=== PATIENT | female | born 1975 | race Caucasian/White ===

== ENCOUNTER 2022-10-15 02:48 | Inpatient (IN) | payer OTHER ==
[2022-10-15] MEDS: ALBUTEROL SO4 2.5/IPRATROPIUM 0.5 INH SOL 3 ML VIAL.NEB. NEB SCH ×2 (03:45→04:02)
[2022-10-15 03:53] LABS: BASO % 0.2 % (0-2.0); EOS % 1.3 % (0-4.5); HEMATOCRIT 22.7 % (32.4-45.2); HEMOGLOBIN 7.8 GM/dL (10.7-15.3); LYMPH % 8.4 % (8-40); MCH 29.9 pg (25.7-33.7); MCHC 34.5 g/dl (32.0-36.0); MEAN CELL VOLUME 86.7 fl (80-96); MEAN PLT VOLUME 7.1 fl (7.5-11.1); MONO % 5.6 % (3.8-10.2); NEUT % 84.5 % (42.8-82.8); PLATELET COUNT 257 10^3/uL (134-434); RBC 2.62 M/mm3 (3.60-5.2); RDW 15.3 % (11.6-15.6); WHITE BLOOD COUNT 9.5 K/mm3 (4.0-10.0)
[2022-10-15 03:59] VITALS: BMI 36.6
[2022-10-15 04:01] LABS: INR 0.97 (0.83-1.09); PROTHROMBIN TIME (PATIENT) 11.1 SEC (9.7-13.0)
[2022-10-15 04:16] LABS: BLOOD UREA NITROGEN 26.1 mg/dL (7-18); CALCIUM 9.2 mg/dL (8.5-10.1)
[2022-10-15 04:17] LABS: ALBUMIN 2.1 g/dl (3.4-5.0)
[2022-10-15 04:20] LABS: CREATININE 2.8 mg/dL (0.55-1.3)
[2022-10-15 04:21] LABS: BILIRUBIN,TOTAL 0.2 mg/dL (0.2-1); TOT PROT 6.1 g/dl (6.4-8.2)
[2022-10-15] MEDS ORDERED: CEFTRIAXONE 1,000 MG in DEXTROSE 5%-WATER - 50 ML IVPB ONE (05:28)
[2022-10-15] MEDS ORDERED: AZITHROMYCIN IVPB 500 MG in DEXTROSE 5%-WATER - 250 ML IVPB ONE (05:29)
[2022-10-15] MEDS ORDERED: CEFTRIAXONE 1 GM/50 ML BAG ONE (05:34)
[2022-10-15] MEDS ORDERED: AZITHROMYCIN IVPB 500 MG/250 ML BAG IVPB ONE (05:36)
[2022-10-15] MEDS ORDERED: ACETAMINOPHEN 1000 MG/100 ML BAG IVPB ONE (06:10)
[2022-10-15] MEDS ORDERED: ACETAMINOPHEN INJECTION 100 ML IVPB ONE (06:24)
[2022-10-15] MEDS ORDERED: ENOXAPARIN NA (PORCINE) 40 MG/0.4 ML DISP.SYRIN SQ ONE (07:18)
[2022-10-15] MEDS ORDERED: ENOXAPARIN NA (PORCINE) 100 MG/1 ML DISP.SYRIN SQ ONE (07:35)
[2022-10-15] MEDS ORDERED: ENOXAPARIN NA (PORCINE) 80 MG/0.8 ML DISP.SYRIN SQ ONE ×2 (07:36→07:45)
[2022-10-15] MEDS ORDERED: ALBUTEROL SO4 2.5/IPRATROPIUM 0.5 INH SOL 3 ML VIAL.NEB. NEB PRN (09:47)
[2022-10-15] MEDS ORDERED: ACETYLCYSTEINE 20% 200MG/ML 4 ML VIAL *FOR ORAL / INH USE ONLY NEB ONE (10:12)
[2022-10-15] MEDS ORDERED: ALBUTEROL SO4 0.083% IH SOL 2.5 MG/3 ML VIAL.NEB. NEB PRN (10:15)
[2022-10-15] MEDS ORDERED: LABETALOL HCL 100 MG TABLET (FP) ONE (10:54)
[2022-10-15] MEDS ORDERED: ASPIRIN 81 MG CHEWABLE TABLETS ONE (10:55)
[2022-10-15] MEDS ORDERED: amLODIPine BESYLATE 10 MG TABLET (FP) ONE (10:55)
[2022-10-15] MEDS: INSULIN SLIDING SCALE (NOVOLOG) 1 VIAL SQ SCH ×3 (10:56→21:03)
[2022-10-15] MEDS: amLODIPine BESYLATE 10 MG TABLET (FP) PEG SCH (13:04)
[2022-10-15] MEDS: ASPIRIN 81 MG CHEWABLE TABLETS PEG SCH (13:04)
[2022-10-15] MEDS: LABETALOL HCL 100 MG TABLET (FP) PEG SCH ×2 (13:04→21:00)
[2022-10-15] MEDS: FLUoxetine HCL 20 MG/5 ML 120 BOTTLE PEG SCH (13:04)
[2022-10-15] MEDS: cloNIDine-TTS 0.3 MG /24 HRS PATCH.TDWK TD SCH (13:04)
[2022-10-15] MEDS ORDERED: ACETYLCYSTEINE 20% 200MG/ML 4 ML VIAL *FOR ORAL / INH USE ONLY ONE (13:57)
[2022-10-15] MEDS ORDERED: ALBUTEROL SO4 0.083% IH SOL 2.5 MG/3 ML VIAL.NEB. NEB ONE (13:58)
[2022-10-15] MEDS ORDERED: ACETAMINOPHEN 325 MG TABLET (FP) PO ONE (20:12)
[2022-10-15] MEDS: HEPARIN NA (PORCINE) 5,000 UNITS/ML 1ML VIAL SQ SCH (21:00)
[2022-10-15] MEDS: ATORVASTATIN CA 80 MG TABLET (FP) PEG SCH (21:00)
[2022-10-16] MEDS ORDERED: MELATONIN 5 MG TABLETS PO PRN (00:20)
[2022-10-16] MEDS: HEPARIN NA (PORCINE) 5,000 UNITS/ML 1ML VIAL SQ SCH ×3 (06:15→21:05)
[2022-10-16] MEDS: INSULIN SLIDING SCALE (NOVOLOG) 1 VIAL SQ SCH ×4 (07:03→22:44)
[2022-10-16 07:44] LABS: BASO % 0.6 % (0-2.0); HEMATOCRIT 21.4 % (32.4-45.2); HEMOGLOBIN 7.3 GM/dL (10.7-15.3); LYMPH % 18.1 % (8-40); MCH 29.3 pg (25.7-33.7); MCHC 34.3 g/dl (32.0-36.0); MEAN CELL VOLUME 85.4 fl (80-96); MEAN PLT VOLUME 7.1 fl (7.5-11.1); MONO % 9.9 % (3.8-10.2); NEUT % 68.4 % (42.8-82.8); PLATELET COUNT 269 10^3/uL (134-434); RDW 15.5 % (11.6-15.6); WHITE BLOOD COUNT 5.3 K/mm3 (4.0-10.0)
[2022-10-16] MEDS: amLODIPine BESYLATE 10 MG TABLET (FP) PEG SCH (10:17)
[2022-10-16] MEDS: LABETALOL HCL 100 MG TABLET (FP) PEG SCH ×2 (10:17→21:05)
[2022-10-16] MEDS: ASPIRIN 81 MG CHEWABLE TABLETS PEG SCH (10:17)
[2022-10-16 12:20] LABS: INR 0.93 (0.83-1.09); PROTHROMBIN TIME (PATIENT) 10.7 SEC (9.7-13.0)
[2022-10-16 12:23] LABS: ACTIVATED PTT 31.6 SECONDS (25.2-36.5)
[2022-10-16 12:51] LABS: BILIRUBIN,TOTAL 1.5 mg/dL (0.2-1); PHOSPHOROUS 4.4 mg/dL (2.5-4.9)
[2022-10-16 12:53] LABS: ALBUMIN 2.1 g/dl (3.4-5.0)
[2022-10-16 12:55] LABS: CALCIUM 10.4 mg/dL (8.5-10.1)
[2022-10-16 12:56] LABS: MAGNESIUM 2.8 mg/dL (1.8-2.4)
[2022-10-16 12:57] LABS: BLOOD UREA NITROGEN 35.3 mg/dL (7-18)
[2022-10-16] MEDS ORDERED: SODIUM CHLORIDE 250 ML IV PRN (12:58)
[2022-10-16] MEDS ORDERED: EPOETIN ALFA-EPBX 10,000 UNIT/ML VIAL IVPUSH ONE (14:00)
[2022-10-16] MEDS ORDERED: MAGNESIUM HYDROX 2400MG/30ML ORAL SUSPENSION 30 ML CUP PEG PRN (18:26)
[2022-10-16] MEDS: FLUoxetine HCL 20 MG/5 ML 120 BOTTLE PEG SCH (21:04)
[2022-10-16] MEDS: ACETAMINOPHEN 650 MG/20.3 ML ORAL SOLUTION (CUPS) PEG PRN (21:04)
[2022-10-16] MEDS: MELATONIN 5 MG TABLETS NR SCH (21:05)
[2022-10-16] MEDS: NYSTATIN 100,000 UNIT/GM TOPICAL CREAM 15 GM TUBE TP SCH (21:05)
[2022-10-16] MEDS: ATORVASTATIN CA 80 MG TABLET (FP) PEG SCH (21:05)
[2022-10-16] MEDS: Lacosamide 50 MG/5 ML ORAL SOLUTION UNIT CUPS PEG SCH (21:05)
[2022-10-17] MEDS: INSULIN SLIDING SCALE (NOVOLOG) 1 VIAL SQ SCH ×4 (06:25→22:13)
[2022-10-17] MEDS: HEPARIN NA (PORCINE) 5,000 UNITS/ML 1ML VIAL SQ SCH ×3 (06:25→22:00)
[2022-10-17 07:29] LABS: BASO % 0.4 % (0-2.0); EOS % 1.8 % (0-4.5); HEMATOCRIT 21.5 % (32.4-45.2); HEMOGLOBIN 7.6 GM/dL (10.7-15.3); LYMPH % 12.1 % (8-40); MCH 30.2 pg (25.7-33.7); MCHC 35.3 g/dl (32.0-36.0); MEAN CELL VOLUME 85.6 fl (80-96); MEAN PLT VOLUME 6.6 fl (7.5-11.1); MONO % 10.3 % (3.8-10.2); NEUT % 75.4 % (42.8-82.8); PLATELET COUNT 310 10^3/uL (134-434); RBC 2.52 M/mm3 (3.60-5.2); RDW 15.5 % (11.6-15.6); WHITE BLOOD COUNT 6.8 K/mm3 (4.0-10.0)
[2022-10-17 07:39] LABS: CALCIUM 9.8 mg/dL (8.5-10.1)
[2022-10-17 07:40] LABS: ALBUMIN 2.1 g/dl (3.4-5.0); BLOOD UREA NITROGEN 18.9 mg/dL (7-18); MAGNESIUM 2.1 mg/dL (1.8-2.4)
[2022-10-17 07:43] LABS: BILIRUBIN,TOTAL 0.3 mg/dL (0.2-1); CREATININE 2.5 mg/dL (0.55-1.3); PHOSPHOROUS 3.1 mg/dL (2.5-4.9); TOT PROT 5.7 g/dl (6.4-8.2)
[2022-10-17] MEDS: AMINO ACIDS/PROTEIN HYDROLYS 30 ML LIQUID.PKT PEG SCH (08:29)
[2022-10-17] MEDS: ASPIRIN 81 MG CHEWABLE TABLETS PEG SCH (10:10)
[2022-10-17] MEDS: NYSTATIN 100,000 UNIT/GM TOPICAL CREAM 15 GM TUBE TP SCH ×2 (10:10→22:01)
[2022-10-17] MEDS: LABETALOL HCL 100 MG TABLET (FP) PEG SCH ×2 (10:11→22:02)
[2022-10-17] MEDS: FLUoxetine HCL 20 MG/5 ML 120 BOTTLE PEG SCH (10:11)
[2022-10-17] MEDS: amLODIPine BESYLATE 10 MG TABLET (FP) PEG SCH (10:11)
[2022-10-17] MEDS: VITAMIN B COMP W-C 1 EA TABLET (NEPHRO-VITE) PEG SCH (10:11)
[2022-10-17] MEDS: COLLAGENASE CLOSTRIDIUM HIST. 30 GRAMS TUBE TP SCH (10:12)
[2022-10-17] MEDS: SILVER SULFADIAZINE 1% TOP CREAM 50 GM JAR TP SCH (10:12)
[2022-10-17] MEDS: Lacosamide 50 MG/5 ML ORAL SOLUTION UNIT CUPS PEG SCH ×2 (10:12→22:02)
[2022-10-17] MEDS: ACETAMINOPHEN 650 MG/20.3 ML ORAL SOLUTION (CUPS) PEG PRN (22:00)
[2022-10-17] MEDS: MELATONIN 5 MG TABLETS NR SCH (22:01)
[2022-10-17] MEDS: ATORVASTATIN CA 80 MG TABLET (FP) PEG SCH (22:01)
[2022-10-18] MEDS: HEPARIN NA (PORCINE) 5,000 UNITS/ML 1ML VIAL SQ SCH ×3 (06:24→21:49)
[2022-10-18] MEDS: INSULIN SLIDING SCALE (NOVOLOG) 1 VIAL SQ SCH ×4 (06:28→21:50)
[2022-10-18] MEDS: LABETALOL HCL 100 MG TABLET (FP) PEG SCH ×2 (09:46→21:49)
[2022-10-18] MEDS: Lacosamide 50 MG/5 ML ORAL SOLUTION UNIT CUPS PEG SCH ×2 (09:46→21:49)
[2022-10-18] MEDS: ASPIRIN 81 MG CHEWABLE TABLETS PEG SCH (09:46)
[2022-10-18] MEDS: VITAMIN B COMP W-C 1 EA TABLET (NEPHRO-VITE) PEG SCH (09:46)
[2022-10-18] MEDS: amLODIPine BESYLATE 10 MG TABLET (FP) PEG SCH (09:46)
[2022-10-18] MEDS: AMINO ACIDS/PROTEIN HYDROLYS 30 ML LIQUID.PKT PEG SCH (09:46)
[2022-10-18] MEDS: FLUoxetine HCL 20 MG/5 ML 120 BOTTLE PEG SCH (09:47)
[2022-10-18] MEDS: NYSTATIN 100,000 UNIT/GM TOPICAL CREAM 15 GM TUBE TP SCH ×2 (10:00→21:49)
[2022-10-18] MEDS ORDERED: FUROSEMIDE 40 MG/4 ML INJECTABLE VIAL IVPUSH ONE (11:00)
[2022-10-18 13:42] LABS: BASO % 0.4 % (0-2.0); EOS % 2.7 % (0-4.5); HEMATOCRIT 24.2 % (32.4-45.2); HEMOGLOBIN 8.5 GM/dL (10.7-15.3); LYMPH % 14.6 % (8-40); MCH 30.1 pg (25.7-33.7); MCHC 35.1 g/dl (32.0-36.0); MEAN CELL VOLUME 85.9 fl (80-96); MEAN PLT VOLUME 6.8 fl (7.5-11.1); MONO % 8.5 % (3.8-10.2); NEUT % 73.8 % (42.8-82.8); PLATELET COUNT 340 10^3/uL (134-434); RBC 2.82 M/mm3 (3.60-5.2); RDW 15.5 % (11.6-15.6); WHITE BLOOD COUNT 6.5 K/mm3 (4.0-10.0)
[2022-10-18 14:05] LABS: CALCIUM 10.6 mg/dL (8.5-10.1)
[2022-10-18 14:06] LABS: ALBUMIN 2.2 g/dl (3.4-5.0); BLOOD UREA NITROGEN 32.4 mg/dL (7-18)
[2022-10-18 14:09] LABS: CREATININE 3.8 mg/dL (0.55-1.3)
[2022-10-18 14:10] LABS: BILIRUBIN,TOTAL 0.2 mg/dL (0.2-1)
[2022-10-18] MEDS: COLLAGENASE CLOSTRIDIUM HIST. 30 GRAMS TUBE TP SCH (17:45)
[2022-10-18] MEDS: SILVER SULFADIAZINE 1% TOP CREAM 50 GM JAR TP SCH (17:45)
[2022-10-18] MEDS: MELATONIN 5 MG TABLETS NR SCH (21:49)
[2022-10-18] MEDS: ATORVASTATIN CA 80 MG TABLET (FP) PEG SCH (21:49)
[2022-10-18] MEDS: ACETAMINOPHEN 650 MG/20.3 ML ORAL SOLUTION (CUPS) PEG PRN (22:34)
[2022-10-19] MEDS ORDERED: amLODIPine BESYLATE 10 MG TABLET (FP) PO ONE (05:44)
[2022-10-19] MEDS ORDERED: amLODIPine BESYLATE 10 MG TABLET (FP) PEG ONE (05:44)
[2022-10-19] MEDS: INSULIN SLIDING SCALE (NOVOLOG) 1 VIAL SQ SCH ×4 (06:13→21:04)
[2022-10-19] MEDS: HEPARIN NA (PORCINE) 5,000 UNITS/ML 1ML VIAL SQ SCH ×3 (06:13→21:03)
[2022-10-19 07:32] LABS: BASO % 0.3 % (0-2.0); EOS % 2.7 % (0-4.5); HEMATOCRIT 23.5 % (32.4-45.2); HEMOGLOBIN 8.3 GM/dL (10.7-15.3); LYMPH % 13.4 % (8-40); MCH 30.2 pg (25.7-33.7); MCHC 35.4 g/dl (32.0-36.0); MEAN CELL VOLUME 85.5 fl (80-96); MEAN PLT VOLUME 6.7 fl (7.5-11.1); MONO % 7.5 % (3.8-10.2); NEUT % 76.1 % (42.8-82.8); PLATELET COUNT 353 10^3/uL (134-434); RBC 2.75 M/mm3 (3.60-5.2); RDW 15.2 % (11.6-15.6); WHITE BLOOD COUNT 6.6 K/mm3 (4.0-10.0)
[2022-10-19 08:04] LABS: ALBUMIN 2.1 g/dl (3.4-5.0); CALCIUM 11.3 mg/dL (8.5-10.1)
[2022-10-19 08:08] LABS: BLOOD UREA NITROGEN 42.8 mg/dL (7-18); TOT PROT 5.8 g/dl (6.4-8.2)
[2022-10-19 08:10] LABS: BILIRUBIN,TOTAL 0.4 mg/dL (0.2-1); CREATININE 4.5 mg/dL (0.55-1.3)
[2022-10-19] MEDS ORDERED: SODIUM CHLORIDE 250 ML IV PRN (08:55)
[2022-10-19] MEDS: Lacosamide 50 MG/5 ML ORAL SOLUTION UNIT CUPS PEG SCH ×2 (09:24→21:02)
[2022-10-19] MEDS: AMINO ACIDS/PROTEIN HYDROLYS 30 ML LIQUID.PKT PEG SCH (09:24)
[2022-10-19] MEDS: FLUoxetine HCL 20 MG/5 ML 120 BOTTLE PEG SCH (09:25)
[2022-10-19] MEDS: VITAMIN B COMP W-C 1 EA TABLET (NEPHRO-VITE) PEG SCH (09:26)
[2022-10-19] MEDS: ASPIRIN 81 MG CHEWABLE TABLETS PEG SCH (09:26)
[2022-10-19] MEDS: NYSTATIN 100,000 UNIT/GM TOPICAL CREAM 15 GM TUBE TP SCH ×2 (09:26→21:03)
[2022-10-19] MEDS ORDERED: EPOETIN ALFA-EPBX 4,000 UNIT/ML VIAL IVPUSH ONE (10:00)
[2022-10-19] MEDS: COLLAGENASE CLOSTRIDIUM HIST. 30 GRAMS TUBE TP SCH (12:05)
[2022-10-19] MEDS: SILVER SULFADIAZINE 1% TOP CREAM 50 GM JAR TP SCH (12:05)
[2022-10-19] MEDS: LABETALOL HCL 200 MG TABLET (FP) PEG SCH ×2 (12:44→21:03)
[2022-10-19] MEDS: ACETAMINOPHEN 650 MG/20.3 ML ORAL SOLUTION (CUPS) PEG PRN ×2 (16:18→21:20)
[2022-10-19] MEDS ORDERED: FLUoxetine HCL 20 MG/5 ML 120 BOTTLE PO ONE (19:46)
[2022-10-19] MEDS: MELATONIN 5 MG TABLETS NR SCH (21:03)
[2022-10-19] MEDS: ATORVASTATIN CA 80 MG TABLET (FP) PEG SCH (21:03)
[2022-10-19] MEDS ORDERED: ONDANSETRON 4 MG/2 ML VIAL IVPUSH ONE (23:02)
[2022-10-20] MEDS ORDERED: TRIMETHOBENZAMIDE HCL 200MG/2ML INJ IM ONE (00:04)
[2022-10-20] MEDS ORDERED: LABETALOL HCL 5 MG/1 ML (100MG/20 ML VIAL) IVPUSH ONE ×3 (00:07→01:32)
[2022-10-20] MEDS ORDERED: MELATONIN 5 MG TABLETS PO ONE (00:47)
[2022-10-20] MEDS ORDERED: hydrALAZINE HCL 20 MG/ML VIAL IVPUSH ONE (05:23)
[2022-10-20] MEDS ORDERED: ACETAMINOPHEN 1000 MG/100 ML BAG IVPB ONE (05:26)
[2022-10-20] MEDS ORDERED: hydrALAZINE HCL 20 MG/ML VIAL ONE (05:30)
[2022-10-20] MEDS ORDERED: ACETAMINOPHEN INJECTION 100 ML IVPB ONE (05:31)
[2022-10-20] MEDS: HEPARIN NA (PORCINE) 5,000 UNITS/ML 1ML VIAL SQ SCH ×3 (05:47→21:30)
[2022-10-20] MEDS: INSULIN SLIDING SCALE (NOVOLOG) 1 VIAL SQ SCH ×4 (06:37→21:30)
[2022-10-20 07:51] LABS: BASO % 0.2 % (0-2.0); EOS % 0.1 % (0-4.5); HEMATOCRIT 25.4 % (32.4-45.2); HEMOGLOBIN 8.8 GM/dL (10.7-15.3); LYMPH % 7.3 % (8-40); MCH 29.6 pg (25.7-33.7); MCHC 34.7 g/dl (32.0-36.0); MEAN CELL VOLUME 85.4 fl (80-96); MEAN PLT VOLUME 6.8 fl (7.5-11.1); MONO % 2.1 % (3.8-10.2); NEUT % 90.3 % (42.8-82.8); PLATELET COUNT 358 10^3/uL (134-434); RBC 2.98 M/mm3 (3.60-5.2); RDW 15.6 % (11.6-15.6); WHITE BLOOD COUNT 9.6 K/mm3 (4.0-10.0)
[2022-10-20] MEDS: AMINO ACIDS/PROTEIN HYDROLYS 30 ML LIQUID.PKT PEG SCH (08:00)
[2022-10-20 08:09] LABS: CALCIUM 10.5 mg/dL (8.5-10.1)
[2022-10-20 08:10] LABS: ALBUMIN 2.4 g/dl (3.4-5.0)
[2022-10-20 08:11] LABS: MAGNESIUM 2.3 mg/dL (1.8-2.4)
[2022-10-20 08:13] LABS: CREATININE 3.2 mg/dL (0.55-1.3); PHOSPHOROUS 3.3 mg/dL (2.5-4.9)
[2022-10-20 08:15] LABS: BILIRUBIN,TOTAL 0.5 mg/dL (0.2-1); TOT PROT 6.6 g/dl (6.4-8.2)
[2022-10-20] MEDS: Lacosamide 50 MG/5 ML ORAL SOLUTION UNIT CUPS PEG SCH ×2 (10:37→21:31)
[2022-10-20] MEDS: amLODIPine BESYLATE 10 MG TABLET (FP) PEG SCH (10:38)
[2022-10-20] MEDS: FLUoxetine HCL 20 MG/5 ML 120 BOTTLE PEG SCH (10:38)
[2022-10-20] MEDS: ASPIRIN 81 MG CHEWABLE TABLETS PEG SCH (10:38)
[2022-10-20] MEDS: VITAMIN B COMP W-C 1 EA TABLET (NEPHRO-VITE) PEG SCH (10:38)
[2022-10-20] MEDS: LABETALOL HCL 200 MG TABLET (FP) PEG SCH ×2 (10:38→21:30)
[2022-10-20] MEDS: SILVER SULFADIAZINE 1% TOP CREAM 50 GM JAR TP SCH (10:39)
[2022-10-20] MEDS: COLLAGENASE CLOSTRIDIUM HIST. 30 GRAMS TUBE TP SCH (10:39)
[2022-10-20] MEDS: NYSTATIN 100,000 UNIT/GM TOPICAL CREAM 15 GM TUBE TP SCH ×2 (10:39→21:30)
[2022-10-20] MEDS: ONDANSETRON 4 MG/2 ML VIAL IVPUSH PRN ×2 (12:08→20:40)
[2022-10-20] MEDS ORDERED: SODIUM CHLORIDE 250 ML IV PRN (14:59)
[2022-10-20] MEDS: BACITRACIN 15 GM TUBE TOPICAL OINTMENT TP SCH (21:29)
[2022-10-20] MEDS: INSULIN (LEVEMIR) 100 UNITS/ML UNITS SQ SCH (21:30)
[2022-10-20] MEDS: ATORVASTATIN CA 80 MG TABLET (FP) PEG SCH (21:30)
[2022-10-20] MEDS: MELATONIN 5 MG TABLETS NR SCH (21:30)
[2022-10-20] MEDS: ACETAMINOPHEN 650 MG/20.3 ML ORAL SOLUTION (CUPS) PEG PRN (21:33)
[2022-10-21] MEDS: HEPARIN NA (PORCINE) 5,000 UNITS/ML 1ML VIAL SQ SCH ×3 (06:02→21:58)
[2022-10-21] MEDS: INSULIN SLIDING SCALE (NOVOLOG) 1 VIAL SQ SCH ×4 (06:03→22:06)
[2022-10-21 07:41] LABS: BASO % 0.3 % (0-2.0); EOS % 0.9 % (0-4.5); HEMATOCRIT 21.7 % (32.4-45.2); HEMOGLOBIN 7.5 GM/dL (10.7-15.3); MCH 30.1 pg (25.7-33.7); MCHC 34.6 g/dl (32.0-36.0); MEAN CELL VOLUME 86.8 fl (80-96); MEAN PLT VOLUME 6.9 fl (7.5-11.1); MONO % 7.4 % (3.8-10.2); NEUT % 79.4 % (42.8-82.8); PLATELET COUNT 346 10^3/uL (134-434); RDW 15.8 % (11.6-15.6)
[2022-10-21 08:00] LABS: CALCIUM 10.9 mg/dL (8.5-10.1)
[2022-10-21 08:01] LABS: ALBUMIN 2.2 g/dl (3.4-5.0)
[2022-10-21 08:04] LABS: CREATININE 4.2 mg/dL (0.55-1.3)
[2022-10-21 08:05] LABS: TOT PROT 5.7 g/dl (6.4-8.2)
[2022-10-21 08:06] LABS: BILIRUBIN,TOTAL 0.3 mg/dL (0.2-1)
[2022-10-21] MEDS ORDERED: POTASSIUM CHLORIDE ORAL LIQUID 20 MEQ/15 ML PO ONE (08:20)
[2022-10-21] MEDS ORDERED: POTASSIUM CHLORIDE ORAL LIQUID 20 MEQ/15 ML PO SCH (10:00)
[2022-10-21] MEDS: LABETALOL HCL 200 MG TABLET (FP) PEG SCH ×2 (10:23→21:59)
[2022-10-21] MEDS: AMINO ACIDS/PROTEIN HYDROLYS 30 ML LIQUID.PKT PEG SCH (10:23)
[2022-10-21] MEDS: VITAMIN B COMP W-C 1 EA TABLET (NEPHRO-VITE) PEG SCH (10:23)
[2022-10-21] MEDS: Lacosamide 50 MG/5 ML ORAL SOLUTION UNIT CUPS PEG SCH ×2 (10:24→21:59)
[2022-10-21] MEDS: amLODIPine BESYLATE 10 MG TABLET (FP) PEG SCH (10:24)
[2022-10-21] MEDS: SILVER SULFADIAZINE 1% TOP CREAM 50 GM JAR TP SCH (10:24)
[2022-10-21] MEDS: FLUoxetine HCL 20 MG/5 ML 120 BOTTLE PEG SCH (10:24)
[2022-10-21] MEDS: INSULIN (LEVEMIR) 100 UNITS/ML UNITS SQ SCH ×2 (10:24→22:04)
[2022-10-21] MEDS: COLLAGENASE CLOSTRIDIUM HIST. 30 GRAMS TUBE TP SCH (10:24)
[2022-10-21] MEDS: NYSTATIN 100,000 UNIT/GM TOPICAL CREAM 15 GM TUBE TP SCH ×2 (10:25→21:59)
[2022-10-21] MEDS: BACITRACIN 15 GM TUBE TOPICAL OINTMENT TP SCH ×2 (10:25→21:58)
[2022-10-21] MEDS: ASPIRIN 81 MG CHEWABLE TABLETS PEG SCH (10:37)
[2022-10-21] MEDS: ACETAMINOPHEN 650 MG/20.3 ML ORAL SOLUTION (CUPS) PEG PRN (21:58)
[2022-10-21] MEDS: ATORVASTATIN CA 80 MG TABLET (FP) PEG SCH (21:59)
[2022-10-21] MEDS: MELATONIN 5 MG TABLETS NR SCH (21:59)
[2022-10-21] MEDS: ONDANSETRON 4 MG/2 ML VIAL IVPUSH PRN (22:04)
[2022-10-22] MEDS: ONDANSETRON 4 MG/2 ML VIAL IVPUSH PRN (03:27)
[2022-10-22] MEDS: HEPARIN NA (PORCINE) 5,000 UNITS/ML 1ML VIAL SQ SCH ×3 (06:45→21:52)
[2022-10-22] MEDS: INSULIN SLIDING SCALE (NOVOLOG) 1 VIAL SQ SCH ×4 (06:53→21:56)
[2022-10-22 07:12] LABS: BASO % 0.2 % (0-2.0); EOS % 1.2 % (0-4.5); HEMATOCRIT 23.1 % (32.4-45.2); HEMOGLOBIN 7.8 GM/dL (10.7-15.3); LYMPH % 13.1 % (8-40); MCH 29.5 pg (25.7-33.7); MCHC 33.7 g/dl (32.0-36.0); MEAN CELL VOLUME 87.7 fl (80-96); MEAN PLT VOLUME 6.5 fl (7.5-11.1); MONO % 7.5 % (3.8-10.2); PLATELET COUNT 344 10^3/uL (134-434); RBC 2.64 M/mm3 (3.60-5.2); WHITE BLOOD COUNT 7.4 K/mm3 (4.0-10.0)
[2022-10-22 07:56] LABS: ALBUMIN 2.4 g/dl (3.4-5.0); CALCIUM 10.5 mg/dL (8.5-10.1)
[2022-10-22 08:00] LABS: CREATININE 2.8 mg/dL (0.55-1.3)
[2022-10-22 08:01] LABS: BILIRUBIN,TOTAL 0.6 mg/dL (0.2-1); TOT PROT 6.2 g/dl (6.4-8.2)
[2022-10-22] MEDS: VITAMIN B COMP W-C 1 EA TABLET (NEPHRO-VITE) PEG SCH (10:13)
[2022-10-22] MEDS: AMINO ACIDS/PROTEIN HYDROLYS 30 ML LIQUID.PKT PEG SCH (10:13)
[2022-10-22] MEDS: Lacosamide 50 MG/5 ML ORAL SOLUTION UNIT CUPS PEG SCH ×2 (10:13→22:22)
[2022-10-22] MEDS: LABETALOL HCL 200 MG TABLET (FP) PEG SCH ×2 (10:13→21:53)
[2022-10-22] MEDS: ASPIRIN 81 MG CHEWABLE TABLETS PEG SCH (10:13)
[2022-10-22] MEDS: amLODIPine BESYLATE 10 MG TABLET (FP) PEG SCH (10:13)
[2022-10-22] MEDS: FLUoxetine HCL 20 MG/5 ML 120 BOTTLE PEG SCH (10:15)
[2022-10-22] MEDS: INSULIN (LEVEMIR) 100 UNITS/ML UNITS SQ SCH ×2 (10:16→21:56)
[2022-10-22] MEDS: cloNIDine-TTS 0.3 MG /24 HRS PATCH.TDWK TD SCH (10:17)
[2022-10-22] MEDS ORDERED: ONDANSETRON 4 MG/2 ML VIAL IVPUSH PRN (10:46)
[2022-10-22] MEDS: BACITRACIN 15 GM TUBE TOPICAL OINTMENT TP SCH (11:30)
[2022-10-22] MEDS: COLLAGENASE CLOSTRIDIUM HIST. 30 GRAMS TUBE TP SCH (11:30)
[2022-10-22] MEDS: NYSTATIN 100,000 UNIT/GM TOPICAL CREAM 15 GM TUBE TP SCH (11:30)
[2022-10-22] MEDS: SILVER SULFADIAZINE 1% TOP CREAM 50 GM JAR TP SCH (11:31)
[2022-10-22] MEDS ORDERED: INSULIN (NOVOLOG) ASPART 100 UNITS/ML 10ML VIAL ONE (21:09)
[2022-10-22] MEDS: MELATONIN 5 MG TABLETS NR SCH (21:54)
[2022-10-22] MEDS ORDERED: CLOTRIMAZOLE 1% CREAM TP SCH ×3 (22:00)
[2022-10-22] MEDS: ATORVASTATIN CA 80 MG TABLET (FP) PEG SCH (22:04)
[2022-10-23] MEDS: HEPARIN NA (PORCINE) 5,000 UNITS/ML 1ML VIAL SQ SCH ×3 (06:30→22:01)
[2022-10-23] MEDS: INSULIN SLIDING SCALE (NOVOLOG) 1 VIAL SQ SCH ×4 (06:30→22:02)
[2022-10-23 09:50] LABS: BASO % 0.4 % (0-2.0); EOS % 2.7 % (0-4.5); HEMATOCRIT 23.6 % (32.4-45.2); HEMOGLOBIN 7.9 GM/dL (10.7-15.3); LYMPH % 14.8 % (8-40); MCH 29.5 pg (25.7-33.7); MCHC 33.7 g/dl (32.0-36.0); MEAN CELL VOLUME 87.7 fl (80-96); MEAN PLT VOLUME 6.4 fl (7.5-11.1); MONO % 7.9 % (3.8-10.2); NEUT % 74.2 % (42.8-82.8); PLATELET COUNT 363 10^3/uL (134-434); RBC 2.69 M/mm3 (3.60-5.2)
[2022-10-23] MEDS ORDERED: BACITRACIN 15 GM TUBE TOPICAL OINTMENT TP SCH (10:00)
[2022-10-23 10:12] LABS: ALBUMIN 2.3 g/dl (3.4-5.0)
[2022-10-23 10:14] LABS: BLOOD UREA NITROGEN 32.5 mg/dL (7-18)
[2022-10-23 10:15] LABS: CREATININE 3.8 mg/dL (0.55-1.3)
[2022-10-23 10:17] LABS: BILIRUBIN,TOTAL 0.8 mg/dL (0.2-1)
[2022-10-23] MEDS: amLODIPine BESYLATE 10 MG TABLET (FP) PEG SCH (11:26)
[2022-10-23] MEDS: AMINO ACIDS/PROTEIN HYDROLYS 30 ML LIQUID.PKT PEG SCH (11:26)
[2022-10-23] MEDS: Lacosamide 50 MG/5 ML ORAL SOLUTION UNIT CUPS PEG SCH ×2 (11:27→22:01)
[2022-10-23] MEDS: ASPIRIN 81 MG CHEWABLE TABLETS PEG SCH (11:28)
[2022-10-23] MEDS: LABETALOL HCL 200 MG TABLET (FP) PEG SCH ×2 (11:28→22:01)
[2022-10-23] MEDS: INSULIN (LEVEMIR) 100 UNITS/ML UNITS SQ SCH ×2 (11:29→22:02)
[2022-10-23] MEDS: FLUoxetine HCL 20 MG/5 ML 120 BOTTLE PEG SCH (11:29)
[2022-10-23] MEDS: VITAMIN B COMP W-C 1 EA TABLET (NEPHRO-VITE) PEG SCH (11:30)
[2022-10-23] MEDS: COLLAGENASE CLOSTRIDIUM HIST. 30 GRAMS TUBE TP SCH ×2 (11:31→19:34)
[2022-10-23] MEDS ORDERED: SODIUM CHLORIDE 250 ML IV PRN (11:52)
[2022-10-23] MEDS ORDERED: EPOETIN ALFA-EPBX 10,000 UNIT/ML VIAL SQ ONE (17:30)
[2022-10-23] MEDS ORDERED: INSULIN (NOVOLOG) ASPART 100 UNITS/ML 10ML VIAL ONE (21:11)
[2022-10-23] MEDS: ATORVASTATIN CA 80 MG TABLET (FP) PEG SCH (22:01)
[2022-10-23] MEDS: MELATONIN 5 MG TABLETS NR SCH (22:02)
[2022-10-24] MEDS: HEPARIN NA (PORCINE) 5,000 UNITS/ML 1ML VIAL SQ SCH ×3 (06:37→22:59)
[2022-10-24] MEDS: INSULIN SLIDING SCALE (NOVOLOG) 1 VIAL SQ SCH ×3 (06:37→16:48)
[2022-10-24] MEDS: AMINO ACIDS/PROTEIN HYDROLYS 30 ML LIQUID.PKT PEG SCH (09:02)
[2022-10-24 09:58] LABS: BASO % 0.5 % (0-2.0); EOS % 2.3 % (0-4.5); HEMATOCRIT 25.4 % (32.4-45.2); HEMOGLOBIN 8.7 GM/dL (10.7-15.3); LYMPH % 15.8 % (8-40); MCH 29.9 pg (25.7-33.7); MCHC 34.1 g/dl (32.0-36.0); MEAN CELL VOLUME 87.8 fl (80-96); MEAN PLT VOLUME 6.5 fl (7.5-11.1); MONO % 8.7 % (3.8-10.2); NEUT % 72.7 % (42.8-82.8); PLATELET COUNT 352 10^3/uL (134-434); RBC 2.89 M/mm3 (3.60-5.2); RDW 16.3 % (11.6-15.6); WHITE BLOOD COUNT 6.2 K/mm3 (4.0-10.0)
[2022-10-24 10:27] LABS: ALBUMIN 2.3 g/dl (3.4-5.0); BLOOD UREA NITROGEN 17.4 mg/dL (7-18); CALCIUM 10.7 mg/dL (8.5-10.1)
[2022-10-24 10:30] LABS: CREATININE 2.5 mg/dL (0.55-1.3)
[2022-10-24] MEDS: LABETALOL HCL 200 MG TABLET (FP) PEG SCH ×3 (10:30→22:59)
[2022-10-24 10:31] LABS: TOT PROT 6.1 g/dl (6.4-8.2)
[2022-10-24 10:32] LABS: BILIRUBIN,TOTAL 0.4 mg/dL (0.2-1)
[2022-10-24] MEDS: FLUoxetine HCL 20 MG/5 ML 120 BOTTLE PEG SCH (10:55)
[2022-10-24] MEDS: Lacosamide 50 MG/5 ML ORAL SOLUTION UNIT CUPS PEG SCH ×2 (10:55→23:00)
[2022-10-24] MEDS: VITAMIN B COMP W-C 1 EA TABLET (NEPHRO-VITE) PEG SCH (10:56)
[2022-10-24] MEDS: ASPIRIN 81 MG CHEWABLE TABLETS PEG SCH (10:57)
[2022-10-24] MEDS: amLODIPine BESYLATE 10 MG TABLET (FP) PEG SCH (10:57)
[2022-10-24] MEDS: INSULIN (LEVEMIR) 100 UNITS/ML UNITS SQ SCH ×2 (10:57→22:59)
[2022-10-24] MEDS: COLLAGENASE CLOSTRIDIUM HIST. 30 GRAMS TUBE TP SCH ×2 (10:57)
[2022-10-24] MEDS: ACETAMINOPHEN 650 MG/20.3 ML ORAL SOLUTION (CUPS) PEG PRN (18:56)
[2022-10-24] MEDS ORDERED: MAGNESIUM HYDROX 2400MG/30ML ORAL SUSPENSION 30 ML CUP PEG PRN (22:10)
[2022-10-24] MEDS: MELATONIN 5 MG TABLETS NR SCH (22:58)
[2022-10-24] MEDS: ATORVASTATIN CA 80 MG TABLET (FP) PEG SCH (22:58)
[2022-10-25] MEDS: HEPARIN NA (PORCINE) 5,000 UNITS/ML 1ML VIAL SQ SCH ×4 (01:55→22:46)
[2022-10-25] MEDS: ATORVASTATIN CA 80 MG TABLET (FP) PEG SCH ×2 (01:56→22:48)
[2022-10-25] MEDS: MELATONIN 5 MG TABLETS NR SCH ×2 (01:56→22:46)
[2022-10-25] MEDS: INSULIN (LEVEMIR) 100 UNITS/ML UNITS SQ SCH ×3 (01:56→22:48)
[2022-10-25] MEDS: Lacosamide 50 MG/5 ML ORAL SOLUTION UNIT CUPS PEG SCH ×3 (01:57→22:47)
[2022-10-25] MEDS: INSULIN SLIDING SCALE (NOVOLOG) 1 VIAL SQ SCH ×5 (01:57→22:44)
[2022-10-25] MEDS: LABETALOL HCL 200 MG TABLET (FP) PEG SCH ×3 (06:24→22:45)
[2022-10-25] MEDS: AMINO ACIDS/PROTEIN HYDROLYS 30 ML LIQUID.PKT PEG SCH (08:31)
[2022-10-25 09:26] LABS: BASO % 0.3 % (0-2.0); EOS % 2.5 % (0-4.5); HEMATOCRIT 26.7 % (32.4-45.2); HEMOGLOBIN 9.1 GM/dL (10.7-15.3); LYMPH % 12.4 % (8-40); MCH 29.9 pg (25.7-33.7); MCHC 34.2 g/dl (32.0-36.0); MEAN CELL VOLUME 87.4 fl (80-96); MEAN PLT VOLUME 6.4 fl (7.5-11.1); NEUT % 77.8 % (42.8-82.8); PLATELET COUNT 348 10^3/uL (134-434); RBC 3.06 M/mm3 (3.60-5.2); RDW 16.2 % (11.6-15.6); WHITE BLOOD COUNT 7.2 K/mm3 (4.0-10.0)
[2022-10-25 09:47] LABS: CALCIUM 11.3 mg/dL (8.5-10.1)
[2022-10-25 09:48] LABS: ALBUMIN 2.5 g/dl (3.4-5.0); BLOOD UREA NITROGEN 31.9 mg/dL (7-18); MAGNESIUM 2.2 mg/dL (1.8-2.4)
[2022-10-25 09:51] LABS: PHOSPHOROUS 3.6 mg/dL (2.5-4.9)
[2022-10-25 09:52] LABS: BILIRUBIN,TOTAL 0.8 mg/dL (0.2-1); CREATININE 3.6 mg/dL (0.55-1.3)
[2022-10-25 09:54] LABS: TOT PROT 6.3 g/dl (6.4-8.2)
[2022-10-25] MEDS ORDERED: ALBUTEROL SO4 0.083% IH SOL 2.5 MG/3 ML VIAL.NEB. NEB PRN (10:34)
[2022-10-25] MEDS: FLUoxetine HCL 20 MG/5 ML 120 BOTTLE PEG SCH (10:39)
[2022-10-25] MEDS: ASPIRIN 81 MG CHEWABLE TABLETS PEG SCH (10:40)
[2022-10-25] MEDS: VITAMIN B COMP W-C 1 EA TABLET (NEPHRO-VITE) PEG SCH (10:40)
[2022-10-25] MEDS: COLLAGENASE CLOSTRIDIUM HIST. 30 GRAMS TUBE TP SCH ×2 (10:41→10:42)
[2022-10-25] MEDS: amLODIPine BESYLATE 10 MG TABLET (FP) PEG SCH (10:42)
[2022-10-25] MEDS ORDERED: EPOETIN ALFA-EPBX 10,000 UNIT/ML VIAL SQ ONE (10:42)
[2022-10-25] MEDS: ALBUTEROL SO4 2.5/IPRATROPIUM 0.5 INH SOL 3 ML VIAL.NEB. NEB PRN (18:37)
[2022-10-26] MEDS: ALBUTEROL SO4 2.5/IPRATROPIUM 0.5 INH SOL 3 ML VIAL.NEB. NEB PRN ×2 (02:40→15:36)
[2022-10-26] MEDS: ACETAMINOPHEN 650 MG/20.3 ML ORAL SOLUTION (CUPS) PEG PRN ×2 (03:32→17:40)
[2022-10-26] MEDS: LABETALOL HCL 200 MG TABLET (FP) PEG SCH ×3 (06:22→23:07)
[2022-10-26] MEDS: HEPARIN NA (PORCINE) 5,000 UNITS/ML 1ML VIAL SQ SCH (06:29)
[2022-10-26] MEDS: INSULIN SLIDING SCALE (NOVOLOG) 1 VIAL SQ SCH ×4 (06:30→23:02)
[2022-10-26 09:53] LABS: BASO % 0.5 % (0-2.0); EOS % 3.6 % (0-4.5); HEMATOCRIT 23.6 % (32.4-45.2); HEMOGLOBIN 8.1 GM/dL (10.7-15.3); MCH 30.2 pg (25.7-33.7); MCHC 34.3 g/dl (32.0-36.0); MEAN CELL VOLUME 88.1 fl (80-96); MEAN PLT VOLUME 6.8 fl (7.5-11.1); MONO % 8.2 % (3.8-10.2); NEUT % 72.7 % (42.8-82.8); PLATELET COUNT 324 10^3/uL (134-434); RBC 2.67 M/mm3 (3.60-5.2); RDW 16.4 % (11.6-15.6); WHITE BLOOD COUNT 6.2 K/mm3 (4.0-10.0)
[2022-10-26 10:14] LABS: BLOOD UREA NITROGEN 43.4 mg/dL (7-18); CALCIUM 11.3 mg/dL (8.5-10.1); MAGNESIUM 2.2 mg/dL (1.8-2.4)
[2022-10-26 10:18] LABS: CREATININE 4.5 mg/dL (0.55-1.3)
[2022-10-26] MEDS ORDERED: EPOETIN ALFA-EPBX 10,000 UNIT/ML VIAL IVPUSH ONE (10:42)
[2022-10-26] MEDS: ASPIRIN 81 MG CHEWABLE TABLETS PEG SCH (11:04)
[2022-10-26] MEDS: AMINO ACIDS/PROTEIN HYDROLYS 30 ML LIQUID.PKT PEG SCH (11:04)
[2022-10-26] MEDS: INSULIN (LEVEMIR) 100 UNITS/ML UNITS SQ SCH ×2 (11:05→23:14)
[2022-10-26] MEDS: amLODIPine BESYLATE 10 MG TABLET (FP) PEG SCH (11:05)
[2022-10-26] MEDS: VITAMIN B COMP W-C 1 EA TABLET (NEPHRO-VITE) PEG SCH (11:05)
[2022-10-26] MEDS: Lacosamide 50 MG/5 ML ORAL SOLUTION UNIT CUPS PEG SCH ×2 (13:17→23:14)
[2022-10-26 15:08] LABS: BF WBC & OTHER NUCLEATED CELLS 291 /mm3
[2022-10-26] MEDS: COLLAGENASE CLOSTRIDIUM HIST. 30 GRAMS TUBE TP SCH ×2 (15:31)
[2022-10-26] MEDS: FLUoxetine HCL 20 MG/5 ML 120 BOTTLE PEG SCH (15:33)
[2022-10-26] MEDS ORDERED: hydrALAZINE HCL 10 MG TABLET PO PRN (16:25)
[2022-10-26] MEDS ORDERED: hydrALAZINE HCL 10 MG TABLET PO SCH (16:30)
[2022-10-26] MEDS ORDERED: hydrALAZINE HCL 10 MG TABLET GT PRN (16:31)
[2022-10-26 16:40] LABS: BODY FLUID MACROPHAGES 26 %
[2022-10-26] MEDS: LACTOBACILLUS ACIDOPHILUS 1 TABLET GT SCH (17:35)
[2022-10-26] MEDS: MELATONIN 5 MG TABLETS NR SCH (23:02)
[2022-10-26] MEDS: ATORVASTATIN CA 80 MG TABLET (FP) PEG SCH (23:02)
[2022-10-27] MEDS: ONDANSETRON 4 MG/2 ML VIAL IVPUSH PRN ×2 (00:07→10:38)
[2022-10-27] MEDS ORDERED: hydrALAZINE HCL 20 MG/ML VIAL IVPUSH ONE (03:44)
[2022-10-27] MEDS: LABETALOL HCL 200 MG TABLET (FP) PEG SCH ×3 (06:49→22:28)
[2022-10-27] MEDS: INSULIN SLIDING SCALE (NOVOLOG) 1 VIAL SQ SCH ×4 (06:50→21:28)
[2022-10-27] MEDS: AMINO ACIDS/PROTEIN HYDROLYS 30 ML LIQUID.PKT PEG SCH (08:22)
[2022-10-27] MEDS: INSULIN (LEVEMIR) 100 UNITS/ML UNITS SQ SCH ×2 (10:37→22:45)
[2022-10-27] MEDS: FLUoxetine HCL 20 MG/5 ML 120 BOTTLE PEG SCH (10:37)
[2022-10-27] MEDS: Lacosamide 50 MG/5 ML ORAL SOLUTION UNIT CUPS PEG SCH ×2 (10:38→22:28)
[2022-10-27] MEDS: VITAMIN B COMP W-C 1 EA TABLET (NEPHRO-VITE) PEG SCH (10:38)
[2022-10-27] MEDS: ASPIRIN 81 MG CHEWABLE TABLETS PEG SCH (10:38)
[2022-10-27] MEDS: amLODIPine BESYLATE 10 MG TABLET (FP) PEG SCH (10:38)
[2022-10-27] MEDS: LACTOBACILLUS ACIDOPHILUS 1 TABLET GT SCH (10:38)
[2022-10-27] MEDS: COLLAGENASE CLOSTRIDIUM HIST. 30 GRAMS TUBE TP SCH ×2 (10:38→10:39)
[2022-10-27] MEDS: HEPARIN NA (PORCINE) 5,000 UNITS/ML 1ML VIAL SQ SCH ×2 (14:06→22:29)
[2022-10-27] MEDS: ALBUTEROL SO4 2.5/IPRATROPIUM 0.5 INH SOL 3 ML VIAL.NEB. NEB PRN (15:01)
[2022-10-27] MEDS: MELATONIN 5 MG TABLETS NR SCH (22:29)
[2022-10-27] MEDS: ATORVASTATIN CA 80 MG TABLET (FP) PEG SCH (22:29)
[2022-10-28] MEDS: LABETALOL HCL 200 MG TABLET (FP) PEG SCH ×3 (05:55→22:12)
[2022-10-28] MEDS: HEPARIN NA (PORCINE) 5,000 UNITS/ML 1ML VIAL SQ SCH ×3 (05:55→22:12)
[2022-10-28] MEDS: INSULIN SLIDING SCALE (NOVOLOG) 1 VIAL SQ SCH ×4 (06:01→22:14)
[2022-10-28] MEDS ORDERED: SODIUM CHLORIDE 250 ML IV PRN (08:58)
[2022-10-28] MEDS ORDERED: hydrALAZINE HCL 10 MG TABLET GT PRN (09:57)
[2022-10-28 10:56] LABS: BASO % 0.3 % (0-2.0); EOS % 1.2 % (0-4.5); HEMOGLOBIN 8.1 GM/dL (10.7-15.3); LYMPH % 11.6 % (8-40); MCH 30.2 pg (25.7-33.7); MCHC 33.8 g/dl (32.0-36.0); MEAN CELL VOLUME 89.5 fl (80-96); MEAN PLT VOLUME 7.1 fl (7.5-11.1); MONO % 7.1 % (3.8-10.2); NEUT % 79.8 % (42.8-82.8); PLATELET COUNT 303 10^3/uL (134-434); RBC 2.69 M/mm3 (3.60-5.2)
[2022-10-28] MEDS ORDERED: EPOETIN ALFA-EPBX 10,000 UNIT/ML VIAL IVPUSH ONE (11:00)
[2022-10-28 11:16] LABS: CALCIUM 11.2 mg/dL (8.5-10.1)
[2022-10-28 11:17] LABS: BLOOD UREA NITROGEN 29.5 mg/dL (7-18)
[2022-10-28 11:20] LABS: CREATININE 3.8 mg/dL (0.55-1.3)
[2022-10-28] MEDS: AMINO ACIDS/PROTEIN HYDROLYS 30 ML LIQUID.PKT PEG SCH (11:21)
[2022-10-28] MEDS: POLYETHYLENE GLYCOL (HEALTHYLAX) 3350 17 GM PACKET GT SCH ×2 (11:21→22:12)
[2022-10-28] MEDS: amLODIPine BESYLATE 10 MG TABLET (FP) PEG SCH (11:21)
[2022-10-28] MEDS: VITAMIN B COMP W-C 1 EA TABLET (NEPHRO-VITE) PEG SCH (11:21)
[2022-10-28] MEDS: Lacosamide 50 MG/5 ML ORAL SOLUTION UNIT CUPS PEG SCH ×2 (11:22→22:12)
[2022-10-28] MEDS: ALBUTEROL SO4 2.5/IPRATROPIUM 0.5 INH SOL 3 ML VIAL.NEB. NEB SCH ×3 (12:00→20:50)
[2022-10-28] MEDS: LACTOBACILLUS ACIDOPHILUS 1 TABLET GT SCH (13:03)
[2022-10-28] MEDS: ASPIRIN 81 MG CHEWABLE TABLETS PEG SCH (13:03)
[2022-10-28] MEDS: INSULIN (LEVEMIR) 100 UNITS/ML UNITS SQ SCH ×2 (13:04→22:14)
[2022-10-28] MEDS: FLUoxetine HCL 20 MG/5 ML 120 BOTTLE PEG SCH (13:04)
[2022-10-28] MEDS: COLLAGENASE CLOSTRIDIUM HIST. 30 GRAMS TUBE TP SCH ×2 (14:34)
[2022-10-28 17:08] LABS: BODY FLUID ALBUMIN 1.8 g/dL (Not Estab.)
[2022-10-28] MEDS: ONDANSETRON 4 MG/2 ML VIAL IVPUSH PRN (18:47)
[2022-10-28] MEDS: ATORVASTATIN CA 80 MG TABLET (FP) PEG SCH (22:12)
[2022-10-28] MEDS: MELATONIN 5 MG TABLETS NR SCH (22:12)
[2022-10-29] MEDS ORDERED: DEXTROSE 50%-WATER 25 GM/50 ML DISP.SYRIN ONE (03:03)
[2022-10-29] MEDS ORDERED: DEXTROSE 50%-WATER - 25 GM/50 ML VIAL IVPUSH ONE (03:07)
[2022-10-29] MEDS ORDERED: DEXTROSE 50%-WATER 25 GM/50 ML DISP.SYRIN IVPUSH ONE (03:07)
[2022-10-29] MEDS: LABETALOL HCL 200 MG TABLET (FP) PEG SCH ×3 (07:05→23:24)
[2022-10-29] MEDS: INSULIN SLIDING SCALE (NOVOLOG) 1 VIAL SQ SCH ×4 (07:13→23:29)
[2022-10-29] MEDS: ALBUTEROL SO4 2.5/IPRATROPIUM 0.5 INH SOL 3 ML VIAL.NEB. NEB SCH ×4 (07:48→20:07)
[2022-10-29 09:35] LABS: BASO % 0.5 % (0-2.0); EOS % 1.7 % (0-4.5); HEMATOCRIT 26.6 % (32.4-45.2); HEMOGLOBIN 8.9 GM/dL (10.7-15.3); LYMPH % 15.3 % (8-40); MCH 30.3 pg (25.7-33.7); MCHC 33.5 g/dl (32.0-36.0); MEAN CELL VOLUME 90.6 fl (80-96); MEAN PLT VOLUME 6.6 fl (7.5-11.1); MONO % 10.5 % (3.8-10.2); PLATELET COUNT 314 10^3/uL (134-434); RBC 2.94 M/mm3 (3.60-5.2); RDW 17.7 % (11.6-15.6); WHITE BLOOD COUNT 5.8 K/mm3 (4.0-10.0)
[2022-10-29 09:50] LABS: CALCIUM 10.8 mg/dL (8.5-10.1)
[2022-10-29 09:51] LABS: BLOOD UREA NITROGEN 13.4 mg/dL (7-18)
[2022-10-29 09:53] LABS: CREATININE 2.7 mg/dL (0.55-1.3)
[2022-10-29] MEDS ORDERED: cloNIDine-TTS 0.3 MG /24 HRS PATCH.TDWK TD SCH (10:00)
[2022-10-29] MEDS: INSULIN (LEVEMIR) 100 UNITS/ML UNITS SQ SCH ×2 (10:49→23:25)
[2022-10-29] MEDS: HEPARIN NA (PORCINE) 5,000 UNITS/ML 1ML VIAL SQ SCH ×3 (10:54→23:25)
[2022-10-29] MEDS: AMINO ACIDS/PROTEIN HYDROLYS 30 ML LIQUID.PKT PEG SCH (10:54)
[2022-10-29] MEDS: POLYETHYLENE GLYCOL (HEALTHYLAX) 3350 17 GM PACKET GT SCH ×2 (10:54→23:25)
[2022-10-29] MEDS: Lacosamide 50 MG/5 ML ORAL SOLUTION UNIT CUPS PEG SCH ×2 (10:55→23:23)
[2022-10-29] MEDS: FLUoxetine HCL 20 MG/5 ML 120 BOTTLE PEG SCH (10:55)
[2022-10-29] MEDS: COLLAGENASE CLOSTRIDIUM HIST. 30 GRAMS TUBE TP SCH ×2 (10:55)
[2022-10-29] MEDS: LACTOBACILLUS ACIDOPHILUS 1 TABLET GT SCH (10:56)
[2022-10-29] MEDS: methylPREDNISolone NA SUCC 40 MG/1 ML VIAL IVPUSH SCH ×2 (10:56→18:13)
[2022-10-29] MEDS: amLODIPine BESYLATE 10 MG TABLET (FP) PEG SCH (10:56)
[2022-10-29] MEDS: ONDANSETRON 4 MG/2 ML VIAL IVPUSH PRN (10:56)
[2022-10-29] MEDS: VITAMIN B COMP W-C 1 EA TABLET (NEPHRO-VITE) PEG SCH (10:56)
[2022-10-29] MEDS: ASPIRIN 81 MG CHEWABLE TABLETS PEG SCH (10:56)
[2022-10-29] MEDS: hydrALAZINE HCL 10 MG TABLET GT SCH ×3 (12:45→23:24)
[2022-10-29] MEDS ORDERED: hydrALAZINE HCL 10 MG TABLET GT SCH (14:00)
[2022-10-29] MEDS: LISINOPRIL 10 MG TABLET PO SCH (14:00)
[2022-10-29] MEDS: ATORVASTATIN CA 80 MG TABLET (FP) PEG SCH (23:23)
[2022-10-29] MEDS: MELATONIN 5 MG TABLETS NR SCH (23:25)
[2022-10-30] MEDS: methylPREDNISolone NA SUCC 40 MG/1 ML VIAL IVPUSH SCH ×3 (02:02→17:49)
[2022-10-30] MEDS ORDERED: hydrALAZINE HCL 10 MG TABLET GT ONE (02:44)
[2022-10-30] MEDS: LABETALOL HCL 200 MG TABLET (FP) PEG SCH ×3 (06:07→23:27)
[2022-10-30] MEDS: hydrALAZINE HCL 10 MG TABLET GT SCH ×3 (06:07→23:26)
[2022-10-30] MEDS: HEPARIN NA (PORCINE) 5,000 UNITS/ML 1ML VIAL SQ SCH ×3 (06:07→23:27)
[2022-10-30] MEDS: INSULIN SLIDING SCALE (NOVOLOG) 1 VIAL SQ SCH ×4 (06:30→23:28)
[2022-10-30] MEDS ORDERED: SODIUM CHLORIDE 250 ML IV PRN (07:36)
[2022-10-30] MEDS: ALBUTEROL SO4 2.5/IPRATROPIUM 0.5 INH SOL 3 ML VIAL.NEB. NEB SCH ×4 (08:25→20:10)
[2022-10-30 09:58] LABS: BASO % 0.1 % (0-2.0); HEMATOCRIT 26.7 % (32.4-45.2); HEMOGLOBIN 8.9 GM/dL (10.7-15.3); LYMPH % 8.9 % (8-40); MCH 30.1 pg (25.7-33.7); MCHC 33.4 g/dl (32.0-36.0); MEAN CELL VOLUME 90.1 fl (80-96); MONO % 1.8 % (3.8-10.2); NEUT % 89.2 % (42.8-82.8); PLATELET COUNT 310 10^3/uL (134-434); RBC 2.96 M/mm3 (3.60-5.2); RDW 17.4 % (11.6-15.6); WHITE BLOOD COUNT 4.9 K/mm3 (4.0-10.0)
[2022-10-30] MEDS ORDERED: FAMOTIDINE 10 MG TABLET PEG SCH (10:00)
[2022-10-30] MEDS ORDERED: METOCLOPRAMIDE HCL INJECTION 10 MG/2 ML VIAL IVPUSH SCH (10:00)
[2022-10-30 10:50] LABS: CALCIUM 10.6 mg/dL (8.5-10.1)
[2022-10-30 10:51] LABS: BLOOD UREA NITROGEN 24.2 mg/dL (7-18)
[2022-10-30 10:54] LABS: CREATININE 3.7 mg/dL (0.55-1.3)
[2022-10-30] MEDS: FAMOTIDINE 40 MG/5 ML ORAL SUSPENSION PEG SCH (13:34)
[2022-10-30] MEDS: POLYETHYLENE GLYCOL (HEALTHYLAX) 3350 17 GM PACKET GT SCH ×2 (13:34→23:27)
[2022-10-30] MEDS: AMINO ACIDS/PROTEIN HYDROLYS 30 ML LIQUID.PKT PEG SCH (13:34)
[2022-10-30] MEDS: Lacosamide 50 MG/5 ML ORAL SOLUTION UNIT CUPS PEG SCH ×2 (13:35→23:26)
[2022-10-30] MEDS: FLUoxetine HCL 20 MG/5 ML 120 BOTTLE PEG SCH (13:35)
[2022-10-30] MEDS: VITAMIN B COMP W-C 1 EA TABLET (NEPHRO-VITE) PEG SCH (13:36)
[2022-10-30] MEDS: ASPIRIN 81 MG CHEWABLE TABLETS PEG SCH (13:36)
[2022-10-30] MEDS: amLODIPine BESYLATE 10 MG TABLET (FP) PEG SCH (13:36)
[2022-10-30] MEDS: LISINOPRIL 10 MG TABLET PO SCH (13:36)
[2022-10-30] MEDS: LACTOBACILLUS ACIDOPHILUS 1 TABLET GT SCH (13:36)
[2022-10-30] MEDS: INSULIN (LEVEMIR) 100 UNITS/ML UNITS SQ SCH ×2 (13:37→23:27)
[2022-10-30] MEDS: COLLAGENASE CLOSTRIDIUM HIST. 30 GRAMS TUBE TP SCH ×2 (13:38)
[2022-10-30] MEDS: ATORVASTATIN CA 80 MG TABLET (FP) PEG SCH (23:26)
[2022-10-30] MEDS: MELATONIN 5 MG TABLETS NR SCH (23:27)
[2022-10-31] MEDS: methylPREDNISolone NA SUCC 40 MG/1 ML VIAL IVPUSH SCH (02:22)
[2022-10-31] MEDS: HEPARIN NA (PORCINE) 5,000 UNITS/ML 1ML VIAL SQ SCH ×3 (05:47→23:00)
[2022-10-31] MEDS: LABETALOL HCL 200 MG TABLET (FP) PEG SCH ×3 (05:47→22:59)
[2022-10-31] MEDS: hydrALAZINE HCL 10 MG TABLET GT SCH ×3 (05:48→22:59)
[2022-10-31] MEDS: INSULIN SLIDING SCALE (NOVOLOG) 1 VIAL SQ SCH ×4 (06:03→22:59)
[2022-10-31] MEDS: ALBUTEROL SO4 2.5/IPRATROPIUM 0.5 INH SOL 3 ML VIAL.NEB. NEB SCH ×4 (08:35→20:00)
[2022-10-31 09:43] LABS: HEMATOCRIT 28.6 % (32.4-45.2); HEMOGLOBIN 9.5 GM/dL (10.7-15.3); MCH 29.9 pg (25.7-33.7); MCHC 33.1 g/dl (32.0-36.0); MEAN CELL VOLUME 90.2 fl (80-96); MEAN PLT VOLUME 6.9 fl (7.5-11.1); PLATELET COUNT 339 10^3/uL (134-434); RBC 3.17 M/mm3 (3.60-5.2); RDW 17.6 % (11.6-15.6); WHITE BLOOD COUNT 6.5 K/mm3 (4.0-10.0)
[2022-10-31 09:58] LABS: CALCIUM 10.5 mg/dL (8.5-10.1)
[2022-10-31 09:59] LABS: ALBUMIN 2.9 g/dl (3.4-5.0); BLOOD UREA NITROGEN 27.3 mg/dL (7-18)
[2022-10-31 10:02] LABS: CREATININE 2.7 mg/dL (0.55-1.3)
[2022-10-31 10:04] LABS: BILIRUBIN,TOTAL 0.9 mg/dL (0.2-1); TOT PROT 6.8 g/dl (6.4-8.2)
[2022-10-31 10:25] LABS: ANISOCYTOSIS 3+; MACROCYTOSIS 0; OVALOCYTE 1+
[2022-10-31] MEDS: LISINOPRIL 10 MG TABLET PO SCH (11:23)
[2022-10-31] MEDS: LACTOBACILLUS ACIDOPHILUS 1 TABLET GT SCH (11:23)
[2022-10-31] MEDS: AMINO ACIDS/PROTEIN HYDROLYS 30 ML LIQUID.PKT PEG SCH (11:23)
[2022-10-31] MEDS: POLYETHYLENE GLYCOL (HEALTHYLAX) 3350 17 GM PACKET GT SCH (11:23)
[2022-10-31] MEDS: ASPIRIN 81 MG CHEWABLE TABLETS PEG SCH (11:24)
[2022-10-31] MEDS: VITAMIN B COMP W-C 1 EA TABLET (NEPHRO-VITE) PEG SCH (11:24)
[2022-10-31] MEDS: amLODIPine BESYLATE 10 MG TABLET (FP) PEG SCH (11:24)
[2022-10-31] MEDS: Lacosamide 50 MG/5 ML ORAL SOLUTION UNIT CUPS PEG SCH ×2 (11:24→22:59)
[2022-10-31] MEDS: FAMOTIDINE 40 MG/5 ML ORAL SUSPENSION PEG SCH (11:25)
[2022-10-31] MEDS: FLUoxetine HCL 20 MG/5 ML 120 BOTTLE PEG SCH (11:25)
[2022-10-31] MEDS: INSULIN (LEVEMIR) 100 UNITS/ML UNITS SQ SCH ×2 (11:25→23:00)
[2022-10-31] MEDS: COLLAGENASE CLOSTRIDIUM HIST. 30 GRAMS TUBE TP SCH ×2 (12:04→12:06)
[2022-10-31] MEDS: TUBE FEED DECLOGGING SOLUTION 12,000 UNITS GT SCH (22:58)
[2022-10-31] MEDS: ATORVASTATIN CA 80 MG TABLET (FP) PEG SCH (22:58)
[2022-10-31] MEDS: MELATONIN 5 MG TABLETS NR SCH (22:59)
[2022-11-01] MEDS ORDERED: LABETALOL HCL 100 MG TABLET (FP) ONE (05:57)
[2022-11-01] MEDS: hydrALAZINE HCL 10 MG TABLET GT SCH (06:43)
[2022-11-01] MEDS: HEPARIN NA (PORCINE) 5,000 UNITS/ML 1ML VIAL SQ SCH ×2 (06:43→15:41)
[2022-11-01] MEDS: LABETALOL HCL 200 MG TABLET (FP) PEG SCH ×2 (06:44→15:41)
[2022-11-01] MEDS: INSULIN SLIDING SCALE (NOVOLOG) 1 VIAL SQ SCH ×3 (06:45→18:45)
[2022-11-01] MEDS: ALBUTEROL SO4 2.5/IPRATROPIUM 0.5 INH SOL 3 ML VIAL.NEB. NEB SCH ×4 (07:45→20:20)
[2022-11-01 10:28] LABS: BASO % 0.1 % (0-2.0); EOS % 0.2 % (0-4.5); HEMATOCRIT 29.9 % (32.4-45.2); LYMPH % 9.5 % (8-40); MCH 30.2 pg (25.7-33.7); MCHC 33.5 g/dl (32.0-36.0); MEAN CELL VOLUME 90.1 fl (80-96); MEAN PLT VOLUME 6.7 fl (7.5-11.1); MONO % 7.8 % (3.8-10.2); NEUT % 82.4 % (42.8-82.8); PLATELET COUNT 352 10^3/uL (134-434); RBC 3.32 M/mm3 (3.60-5.2); RDW 17.4 % (11.6-15.6); WHITE BLOOD COUNT 9.5 K/mm3 (4.0-10.0)
[2022-11-01] MEDS: AMINO ACIDS/PROTEIN HYDROLYS 30 ML LIQUID.PKT PEG SCH (11:33)
[2022-11-01] MEDS: amLODIPine BESYLATE 10 MG TABLET (FP) PEG SCH (11:34)
[2022-11-01] MEDS: ASPIRIN 81 MG CHEWABLE TABLETS PEG SCH (11:34)
[2022-11-01] MEDS: LISINOPRIL 10 MG TABLET PO SCH (11:34)
[2022-11-01] MEDS: LACTOBACILLUS ACIDOPHILUS 1 TABLET GT SCH (11:34)
[2022-11-01] MEDS: VITAMIN B COMP W-C 1 EA TABLET (NEPHRO-VITE) PEG SCH (11:34)
[2022-11-01] MEDS: Lacosamide 50 MG/5 ML ORAL SOLUTION UNIT CUPS PEG SCH (11:34)
[2022-11-01] MEDS: FAMOTIDINE 40 MG/5 ML ORAL SUSPENSION PEG SCH (11:35)
[2022-11-01 12:03] LABS: CALCIUM 10.7 mg/dL (8.5-10.1)
[2022-11-01 12:04] LABS: ALBUMIN 2.8 g/dl (3.4-5.0); BLOOD UREA NITROGEN 47.1 mg/dL (7-18)
[2022-11-01 12:07] LABS: CREATININE 3.8 mg/dL (0.55-1.3)
[2022-11-01 12:09] LABS: BILIRUBIN,TOTAL 0.6 mg/dL (0.2-1); TOT PROT 6.4 g/dl (6.4-8.2)
[2022-11-01] MEDS: INSULIN (LEVEMIR) 100 UNITS/ML UNITS SQ SCH (12:36)
[2022-11-01] MEDS: FLUoxetine HCL 20 MG/5 ML 120 BOTTLE PEG SCH (12:36)
[2022-11-01] MEDS: COLLAGENASE CLOSTRIDIUM HIST. 30 GRAMS TUBE TP SCH ×2 (12:37)
[2022-11-01] MEDS: TUBE FEED DECLOGGING SOLUTION 12,000 UNITS GT SCH (12:37)
[2022-11-01] MEDS ORDERED: SODIUM CHLORIDE 250 ML IV PRN (13:06)
[2022-11-01] MEDS: hydrALAZINE HCL 25 MG TABLET (FP) GT SCH (15:41)
[2022-11-02] MEDS: MELATONIN 5 MG TABLETS NR SCH ×2 (00:35→22:02)
[2022-11-02] MEDS: ATORVASTATIN CA 80 MG TABLET (FP) PEG SCH ×2 (00:35→22:02)
[2022-11-02] MEDS: HEPARIN NA (PORCINE) 5,000 UNITS/ML 1ML VIAL SQ SCH ×4 (00:35→22:03)
[2022-11-02] MEDS: Lacosamide 50 MG/5 ML ORAL SOLUTION UNIT CUPS PEG SCH ×3 (00:35→22:03)
[2022-11-02] MEDS: LABETALOL HCL 200 MG TABLET (FP) PEG SCH ×4 (00:36→22:02)
[2022-11-02] MEDS: INSULIN SLIDING SCALE (NOVOLOG) 1 VIAL SQ SCH ×5 (00:36→22:33)
[2022-11-02] MEDS: hydrALAZINE HCL 25 MG TABLET (FP) GT SCH ×4 (00:36→22:02)
[2022-11-02] MEDS: INSULIN (LEVEMIR) 100 UNITS/ML UNITS SQ SCH ×4 (00:37→22:34)
[2022-11-02] MEDS: ALBUTEROL SO4 2.5/IPRATROPIUM 0.5 INH SOL 3 ML VIAL.NEB. NEB SCH ×4 (07:50→21:27)
[2022-11-02 10:51] LABS: BASO % 0.1 % (0-2.0); EOS % 0.9 % (0-4.5); HEMATOCRIT 32.2 % (32.4-45.2); HEMOGLOBIN 10.8 GM/dL (10.7-15.3); LYMPH % 8.4 % (8-40); MCH 29.7 pg (25.7-33.7); MCHC 33.5 g/dl (32.0-36.0); MEAN CELL VOLUME 88.5 fl (80-96); MONO % 5.6 % (3.8-10.2); PLATELET COUNT 348 10^3/uL (134-434); RBC 3.64 M/mm3 (3.60-5.2); RDW 16.8 % (11.6-15.6); WHITE BLOOD COUNT 9.1 K/mm3 (4.0-10.0)
[2022-11-02 10:53] LABS: ALBUMIN 3.1 g/dl (3.4-5.0); CALCIUM 11.1 mg/dL (8.5-10.1)
[2022-11-02 10:57] LABS: CREATININE 4.7 mg/dL (0.55-1.3)
[2022-11-02 10:58] LABS: BILIRUBIN,TOTAL 0.5 mg/dL (0.2-1); TOT PROT 6.9 g/dl (6.4-8.2)
[2022-11-02] MEDS ORDERED: PIPERACILLIN/TAZOB 2.25 GM 2.25 GM in DEXTROSE 5%-WATER - 50 ML IVPB SCH ×2 (11:45→12:30)
[2022-11-02 11:53] LABS: CALCIUM 11.3 mg/dL (8.5-10.1)
[2022-11-02 11:54] LABS: BLOOD UREA NITROGEN 61.6 mg/dL (7-18)
[2022-11-02 11:57] LABS: PHOSPHOROUS 3.4 mg/dL (2.5-4.9)
[2022-11-02 11:58] LABS: CREATININE 4.7 mg/dL (0.55-1.3)
[2022-11-02] MEDS ORDERED: ONDANSETRON 4 MG/2 ML VIAL IVPUSH PRN (12:30)
[2022-11-02] MEDS ORDERED: POLYETHYLENE GLYCOL (HEALTHYLAX) 3350 17 GM PACKET PO SCH (12:45)
[2022-11-02] MEDS ORDERED: ONDANSETRON *ODT* 4 MG TABLET GT PRN (13:17)
[2022-11-02] MEDS: POLYETHYLENE GLYCOL (HEALTHYLAX) 3350 17 GM PACKET PO SCH ×2 (13:44→22:02)
[2022-11-02] MEDS: AMINO ACIDS/PROTEIN HYDROLYS 30 ML LIQUID.PKT PEG SCH (13:44)
[2022-11-02] MEDS: VITAMIN B COMP W-C 1 EA TABLET (NEPHRO-VITE) PEG SCH (13:45)
[2022-11-02] MEDS: LACTOBACILLUS ACIDOPHILUS 1 TABLET GT SCH (13:45)
[2022-11-02] MEDS: ASPIRIN 81 MG CHEWABLE TABLETS PEG SCH (13:46)
[2022-11-02] MEDS: LISINOPRIL 10 MG TABLET PO SCH (13:46)
[2022-11-02] MEDS: amLODIPine BESYLATE 10 MG TABLET (FP) PEG SCH (13:47)
[2022-11-02] MEDS: FLUoxetine HCL 20 MG/5 ML 120 BOTTLE PEG SCH (13:49)
[2022-11-02] MEDS: COLLAGENASE CLOSTRIDIUM HIST. 30 GRAMS TUBE TP SCH ×2 (13:50)
[2022-11-02] MEDS: TUBE FEED DECLOGGING SOLUTION 12,000 UNITS GT SCH (13:50)
[2022-11-02] MEDS: FAMOTIDINE 40 MG/5 ML ORAL SUSPENSION PEG SCH (13:52)
[2022-11-02] MEDS ORDERED: ONDANSETRON 4 MG/2 ML VIAL IVPB PRN (15:37)
[2022-11-02] MEDS: AMPICILLIN NA/SULBACTAM NA 1.5 GM in SODIUM CHLORIDE 100 ML IVPB SCH (23:00)
[2022-11-02] MEDS: PANTOPRAZOLE SODIUM 40 MG VIAL IVPUSH SCH (23:00)
[2022-11-03] MEDS: hydrALAZINE HCL 25 MG TABLET (FP) GT SCH ×3 (06:14→23:05)
[2022-11-03] MEDS: HEPARIN NA (PORCINE) 5,000 UNITS/ML 1ML VIAL SQ SCH ×3 (06:14→23:04)
[2022-11-03] MEDS: LABETALOL HCL 200 MG TABLET (FP) PEG SCH ×3 (06:15→23:05)
[2022-11-03] MEDS: INSULIN SLIDING SCALE (NOVOLOG) 1 VIAL SQ SCH ×4 (06:25→23:04)
[2022-11-03] MEDS: ALBUTEROL SO4 2.5/IPRATROPIUM 0.5 INH SOL 3 ML VIAL.NEB. NEB SCH ×3 (08:57→20:04)
[2022-11-03] MEDS: AMINO ACIDS/PROTEIN HYDROLYS 30 ML LIQUID.PKT PEG SCH (10:21)
[2022-11-03] MEDS: PANTOPRAZOLE SODIUM 40 MG VIAL IVPUSH SCH (10:22)
[2022-11-03] MEDS: Lacosamide 50 MG/5 ML ORAL SOLUTION UNIT CUPS PEG SCH ×2 (10:24→23:04)
[2022-11-03] MEDS: LACTOBACILLUS ACIDOPHILUS 1 TABLET GT SCH (10:24)
[2022-11-03] MEDS: VITAMIN B COMP W-C 1 EA TABLET (NEPHRO-VITE) PEG SCH (10:24)
[2022-11-03] MEDS: amLODIPine BESYLATE 10 MG TABLET (FP) PEG SCH (10:24)
[2022-11-03] MEDS: ASPIRIN 81 MG CHEWABLE TABLETS PEG SCH (10:24)
[2022-11-03] MEDS: POLYETHYLENE GLYCOL (HEALTHYLAX) 3350 17 GM PACKET PO SCH ×2 (10:24→23:05)
[2022-11-03] MEDS: LISINOPRIL 10 MG TABLET PO SCH (10:24)
[2022-11-03] MEDS: FLUoxetine HCL 20 MG/5 ML 120 BOTTLE PEG SCH (10:25)
[2022-11-03] MEDS: COLLAGENASE CLOSTRIDIUM HIST. 30 GRAMS TUBE TP SCH ×2 (10:26)
[2022-11-03] MEDS: AMPICILLIN NA/SULBACTAM NA 1.5 GM in SODIUM CHLORIDE 100 ML IVPB SCH ×2 (10:26→23:04)
[2022-11-03] MEDS: INSULIN (LEVEMIR) 100 UNITS/ML UNITS SQ SCH ×2 (10:27→23:06)
[2022-11-03 10:30] LABS: BASO % 0.1 % (0-2.0); EOS % 0.3 % (0-4.5); HEMATOCRIT 26.1 % (32.4-45.2); HEMOGLOBIN 8.8 GM/dL (10.7-15.3); LYMPH % 4.6 % (8-40); MCH 30.3 pg (25.7-33.7); MCHC 33.9 g/dl (32.0-36.0); MEAN CELL VOLUME 89.6 fl (80-96); MEAN PLT VOLUME 6.8 fl (7.5-11.1); MONO % 5.3 % (3.8-10.2); NEUT % 89.7 % (42.8-82.8); PLATELET COUNT 259 10^3/uL (134-434); RBC 2.91 M/mm3 (3.60-5.2); RDW 17.2 % (11.6-15.6)
[2022-11-03 10:58] LABS: ALBUMIN 2.9 g/dl (3.4-5.0); CALCIUM 9.8 mg/dL (8.5-10.1)
[2022-11-03 11:01] LABS: CREATININE 3.3 mg/dL (0.55-1.3)
[2022-11-03 11:02] LABS: TOT PROT 5.9 g/dl (6.4-8.2)
[2022-11-03 11:03] LABS: BILIRUBIN,TOTAL 0.4 mg/dL (0.2-1)
[2022-11-03] MEDS: AMINO ACIDS 4.25%/D5W 1,000 ML IV SCH (16:43)
[2022-11-03] MEDS ORDERED: SODIUM CHLORIDE 250 ML IV PRN (17:29)
[2022-11-03] MEDS: ATORVASTATIN CA 80 MG TABLET (FP) PEG SCH (23:05)
[2022-11-03] MEDS: MELATONIN 5 MG TABLETS NR SCH (23:05)
[2022-11-04] MEDS: LABETALOL HCL 200 MG TABLET (FP) PEG SCH ×3 (06:37→21:35)
[2022-11-04] MEDS: INSULIN SLIDING SCALE (NOVOLOG) 1 VIAL SQ SCH ×4 (06:37→21:37)
[2022-11-04] MEDS: hydrALAZINE HCL 25 MG TABLET (FP) GT SCH ×2 (06:37→16:04)
[2022-11-04] MEDS: HEPARIN NA (PORCINE) 5,000 UNITS/ML 1ML VIAL SQ SCH ×3 (06:37→21:36)
[2022-11-04] MEDS ORDERED: EPOETIN ALFA-EPBX 10,000 UNIT/ML VIAL IVPUSH ONE (08:00)
[2022-11-04] MEDS: ALBUTEROL SO4 2.5/IPRATROPIUM 0.5 INH SOL 3 ML VIAL.NEB. NEB SCH ×4 (08:25→19:57)
[2022-11-04 09:48] LABS: HEMATOCRIT 23.9 % (32.4-45.2); MCH 30.3 pg (25.7-33.7); MCHC 33.5 g/dl (32.0-36.0); MEAN CELL VOLUME 90.6 fl (80-96); MEAN PLT VOLUME 7.2 fl (7.5-11.1); PLATELET COUNT 231 10^3/uL (134-434); RBC 2.64 M/mm3 (3.60-5.2); RDW 17.3 % (11.6-15.6); WHITE BLOOD COUNT 10.6 K/mm3 (4.0-10.0)
[2022-11-04 10:10] LABS: PHOSPHOROUS 3.2 mg/dL (2.5-4.9)
[2022-11-04] MEDS ORDERED: ONDANSETRON 4 MG/2 ML VIAL IVPB PRN (10:20)
[2022-11-04] MEDS ORDERED: ONDANSETRON 4 MG/2 ML VIAL IVPB SCH (13:30)
[2022-11-04] MEDS: POLYETHYLENE GLYCOL (HEALTHYLAX) 3350 17 GM PACKET PO SCH ×2 (13:34→21:34)
[2022-11-04] MEDS: AMINO ACIDS/PROTEIN HYDROLYS 30 ML LIQUID.PKT PEG SCH (13:34)
[2022-11-04] MEDS: INSULIN (LEVEMIR) 100 UNITS/ML UNITS SQ SCH ×2 (13:35→21:37)
[2022-11-04] MEDS: LISINOPRIL 10 MG TABLET PO SCH (13:35)
[2022-11-04] MEDS: ASPIRIN 81 MG CHEWABLE TABLETS PEG SCH (13:36)
[2022-11-04] MEDS: LACTOBACILLUS ACIDOPHILUS 1 TABLET GT SCH (13:36)
[2022-11-04] MEDS: VITAMIN B COMP W-C 1 EA TABLET (NEPHRO-VITE) PEG SCH (13:37)
[2022-11-04] MEDS: PANTOPRAZOLE SODIUM 40 MG VIAL IVPUSH SCH (13:37)
[2022-11-04] MEDS: amLODIPine BESYLATE 10 MG TABLET (FP) PEG SCH (13:37)
[2022-11-04] MEDS: COLLAGENASE CLOSTRIDIUM HIST. 30 GRAMS TUBE TP SCH ×2 (13:37→13:38)
[2022-11-04] MEDS: Lacosamide 50 MG/5 ML ORAL SOLUTION UNIT CUPS PEG SCH ×2 (13:38→21:36)
[2022-11-04] MEDS: FLUoxetine HCL 20 MG/5 ML 120 BOTTLE PEG SCH (13:39)
[2022-11-04 14:35] LABS: URINE COLOR STRAW
[2022-11-04 14:36] LABS: URINE APPEARANCE TURBID; URINE BILIRUBIN NEGATIVE (NEGATIVE); URINE GLUCOSE (UA) NEGATIVE (NEGATIVE); URINE KETONE NEGATIVE (NEGATIVE); URINE NITRITE NEGATIVE (NEGATIVE); URINE PROTEIN 3+ (NEGATIVE); URINE UROBILINOGEN 0.2 mg/dL (0.2-1.0)
[2022-11-04 14:37] LABS: EPI CELLS 119.7 /uL (0-25.1); HYALINE CASTS 350.9 /uL (0-3.1); URINE RBC 16.2 /uL (0-23.9); URINE WBC 10857.6 /uL (0-25.8)
[2022-11-04 14:41] LABS: URINE BACTERIA MANY /uL (0-1359); URINE LEUK ESTERASE 4+ (NEGATIVE)
[2022-11-04 14:41] LABS: CALCIUM 9.7 mg/dL (8.5-10.1); MAGNESIUM 2.1 mg/dL (1.8-2.4)
[2022-11-04 14:43] LABS: ALBUMIN 2.7 g/dl (3.4-5.0); BLOOD UREA NITROGEN 45.8 mg/dL (7-18)
[2022-11-04 14:44] LABS: CREATININE 4.2 mg/dL (0.55-1.3)
[2022-11-04 14:46] LABS: TOT PROT 5.7 g/dl (6.4-8.2)
[2022-11-04 14:48] LABS: BILIRUBIN,TOTAL 0.5 mg/dL (0.2-1)
[2022-11-04] MEDS: AMINO ACIDS 4.25%/D5W 1,000 ML IV SCH (15:34)
[2022-11-04] MEDS: PIPERACILLIN/TAZOB 2.25 GM 2.25 GM in DEXTROSE 5%-WATER - 50 ML IVPB SCH ×2 (15:38→17:22)
[2022-11-04] MEDS: AMPICILLIN NA/SULBACTAM NA 1.5 GM in SODIUM CHLORIDE 100 ML IVPB SCH (16:04)
[2022-11-04] MEDS: TRIMETHOBENZAMIDE HCL 200MG/2ML INJ IM SCH (19:40)
[2022-11-04] MEDS: hydrALAZINE HCL 50 MG TABLET (FP) GT SCH (21:34)
[2022-11-04] MEDS: ATORVASTATIN CA 80 MG TABLET (FP) PEG SCH (21:34)
[2022-11-04] MEDS: MELATONIN 5 MG TABLETS NR SCH (21:35)
[2022-11-05] MEDS: PIPERACILLIN/TAZOB 2.25 GM 2.25 GM in DEXTROSE 5%-WATER - 50 ML IVPB SCH ×2 (01:51→10:15)
[2022-11-05] MEDS: TRIMETHOBENZAMIDE HCL 200MG/2ML INJ IM SCH ×4 (01:51→18:32)
[2022-11-05] MEDS: cloNIDine-TTS 0.3 MG /24 HRS PATCH.TDWK TD SCH (03:17)
[2022-11-05] MEDS: LABETALOL HCL 200 MG TABLET (FP) PEG SCH ×3 (06:07→22:46)
[2022-11-05] MEDS: HEPARIN NA (PORCINE) 5,000 UNITS/ML 1ML VIAL SQ SCH ×3 (06:07→22:46)
[2022-11-05] MEDS: hydrALAZINE HCL 50 MG TABLET (FP) GT SCH ×3 (06:08→22:46)
[2022-11-05] MEDS: INSULIN SLIDING SCALE (NOVOLOG) 1 VIAL SQ SCH ×4 (06:08→22:50)
[2022-11-05] MEDS: ALBUTEROL SO4 2.5/IPRATROPIUM 0.5 INH SOL 3 ML VIAL.NEB. NEB SCH ×4 (08:15→20:00)
[2022-11-05 10:12] LABS: BASO % 0.3 % (0-2.0); EOS % 2.1 % (0-4.5); HEMATOCRIT 25.4 % (32.4-45.2); HEMOGLOBIN 8.5 GM/dL (10.7-15.3); LYMPH % 10.3 % (8-40); MCH 30.4 pg (25.7-33.7); MCHC 33.4 g/dl (32.0-36.0); MEAN PLT VOLUME 7.3 fl (7.5-11.1); MONO % 9.8 % (3.8-10.2); NEUT % 77.5 % (42.8-82.8); PLATELET COUNT 227 10^3/uL (134-434); RBC 2.79 M/mm3 (3.60-5.2); RDW 17.3 % (11.6-15.6); WHITE BLOOD COUNT 8.1 K/mm3 (4.0-10.0)
[2022-11-05] MEDS: Lacosamide 50 MG/5 ML ORAL SOLUTION UNIT CUPS PEG SCH ×2 (10:15→22:45)
[2022-11-05] MEDS: PANTOPRAZOLE SODIUM 40 MG VIAL IVPUSH SCH (10:15)
[2022-11-05] MEDS: AMINO ACIDS/PROTEIN HYDROLYS 30 ML LIQUID.PKT PEG SCH (10:16)
[2022-11-05] MEDS: LACTOBACILLUS ACIDOPHILUS 1 TABLET GT SCH (10:16)
[2022-11-05] MEDS: ASPIRIN 81 MG CHEWABLE TABLETS PEG SCH (10:16)
[2022-11-05] MEDS: POLYETHYLENE GLYCOL (HEALTHYLAX) 3350 17 GM PACKET PO SCH ×2 (10:16→22:46)
[2022-11-05] MEDS: amLODIPine BESYLATE 10 MG TABLET (FP) PEG SCH (10:16)
[2022-11-05] MEDS: LISINOPRIL 10 MG TABLET PO SCH (10:16)
[2022-11-05] MEDS: VITAMIN B COMP W-C 1 EA TABLET (NEPHRO-VITE) PEG SCH (10:16)
[2022-11-05] MEDS: INSULIN (LEVEMIR) 100 UNITS/ML UNITS SQ SCH ×2 (10:17→22:50)
[2022-11-05] MEDS: FLUoxetine HCL 20 MG/5 ML 120 BOTTLE PEG SCH (10:20)
[2022-11-05 11:19] LABS: ALBUMIN 2.7 g/dl (3.4-5.0); BLOOD UREA NITROGEN 24.2 mg/dL (7-18); CALCIUM 9.7 mg/dL (8.5-10.1)
[2022-11-05 11:22] LABS: CREATININE 2.8 mg/dL (0.55-1.3)
[2022-11-05 11:23] LABS: BILIRUBIN,TOTAL 0.6 mg/dL (0.2-1)
[2022-11-05] MEDS: guaiFENesin/D-M SUGAR-FREE/ACLHOL-FREE 5 ML UNIT DOSE GT SCH ×2 (15:36→18:58)
[2022-11-05] MEDS ORDERED: POTASSIUM CHLORIDE ORAL LIQUID 20 MEQ/15 ML GT ONE ×2 (15:56→18:15)
[2022-11-05] MEDS ORDERED: PIPERACILLIN/TAZOB 2.25 GM 2.25 GM in DEXTROSE 5%-WATER - 50 ML IVPB SCH (18:00)
[2022-11-05] MEDS: COLLAGENASE CLOSTRIDIUM HIST. 30 GRAMS TUBE TP SCH ×2 (18:10→18:11)
[2022-11-05] MEDS: AMINO ACIDS 4.25%/D5W 1,000 ML IV SCH (18:10)
[2022-11-05] MEDS: ATORVASTATIN CA 80 MG TABLET (FP) PEG SCH (22:45)
[2022-11-05] MEDS: MELATONIN 5 MG TABLETS NR SCH (22:46)
[2022-11-06] MEDS: TRIMETHOBENZAMIDE HCL 200MG/2ML INJ IM SCH ×3 (00:17→17:16)
[2022-11-06] MEDS: guaiFENesin/D-M SUGAR-FREE/ACLHOL-FREE 5 ML UNIT DOSE GT SCH ×4 (00:17→19:03)
[2022-11-06] MEDS: hydrALAZINE HCL 50 MG TABLET (FP) GT SCH ×3 (05:37→22:51)
[2022-11-06] MEDS: LABETALOL HCL 200 MG TABLET (FP) PEG SCH ×3 (05:37→22:50)
[2022-11-06] MEDS: HEPARIN NA (PORCINE) 5,000 UNITS/ML 1ML VIAL SQ SCH ×3 (05:38→22:57)
[2022-11-06] MEDS: INSULIN SLIDING SCALE (NOVOLOG) 1 VIAL SQ SCH ×4 (06:05→22:33)
[2022-11-06] MEDS: ALBUTEROL SO4 2.5/IPRATROPIUM 0.5 INH SOL 3 ML VIAL.NEB. NEB SCH ×4 (08:02→20:03)
[2022-11-06] MEDS ORDERED: SODIUM CHLORIDE 250 ML IV PRN (08:34)
[2022-11-06] MEDS ORDERED: EPOETIN ALFA-EPBX 10,000 UNIT/ML VIAL IVPUSH ONE (09:00)
[2022-11-06 09:31] LABS: BASO % 0.3 % (0-2.0); HEMATOCRIT 24.7 % (32.4-45.2); HEMOGLOBIN 8.2 GM/dL (10.7-15.3); LYMPH % 11.4 % (8-40); MCH 30.1 pg (25.7-33.7); MCHC 33.2 g/dl (32.0-36.0); MEAN CELL VOLUME 90.9 fl (80-96); MEAN PLT VOLUME 7.8 fl (7.5-11.1); MONO % 8.7 % (3.8-10.2); NEUT % 76.6 % (42.8-82.8); PLATELET COUNT 208 10^3/uL (134-434); RBC 2.72 M/mm3 (3.60-5.2); RDW 16.7 % (11.6-15.6); WHITE BLOOD COUNT 7.8 K/mm3 (4.0-10.0)
[2022-11-06 09:59] LABS: CALCIUM 9.4 mg/dL (8.5-10.1)
[2022-11-06 10:00] LABS: ALBUMIN 2.5 g/dl (3.4-5.0); BLOOD UREA NITROGEN 44.4 mg/dL (7-18)
[2022-11-06 10:04] LABS: BILIRUBIN,TOTAL 0.8 mg/dL (0.2-1); CREATININE 3.8 mg/dL (0.55-1.3); TOT PROT 5.6 g/dl (6.4-8.2)
[2022-11-06] MEDS: INSULIN (LEVEMIR) 100 UNITS/ML UNITS SQ SCH ×2 (11:59→22:32)
[2022-11-06] MEDS: POLYETHYLENE GLYCOL (HEALTHYLAX) 3350 17 GM PACKET PO SCH ×2 (11:59→22:32)
[2022-11-06] MEDS: AMINO ACIDS/PROTEIN HYDROLYS 30 ML LIQUID.PKT PEG SCH (13:22)
[2022-11-06] MEDS: ASPIRIN 81 MG CHEWABLE TABLETS PEG SCH (13:22)
[2022-11-06] MEDS: VITAMIN B COMP W-C 1 EA TABLET (NEPHRO-VITE) PEG SCH (13:22)
[2022-11-06] MEDS: PANTOPRAZOLE SODIUM 40 MG VIAL IVPUSH SCH (13:23)
[2022-11-06] MEDS: amLODIPine BESYLATE 10 MG TABLET (FP) PEG SCH (13:23)
[2022-11-06] MEDS: LACTOBACILLUS ACIDOPHILUS 1 TABLET GT SCH (13:23)
[2022-11-06] MEDS: LISINOPRIL 10 MG TABLET PO SCH (13:23)
[2022-11-06] MEDS: Lacosamide 50 MG/5 ML ORAL SOLUTION UNIT CUPS PEG SCH ×2 (13:24→22:50)
[2022-11-06] MEDS: FLUoxetine HCL 20 MG/5 ML 120 BOTTLE PEG SCH (13:26)
[2022-11-06] MEDS: COLLAGENASE CLOSTRIDIUM HIST. 30 GRAMS TUBE TP SCH ×2 (14:48→15:00)
[2022-11-06] MEDS: AMINO ACIDS 4.25%/D5W 1,000 ML IV SCH (15:02)
[2022-11-06] MEDS: ACETAMINOPHEN 650 MG/20.3 ML ORAL SOLUTION (CUPS) PEG PRN (18:20)
[2022-11-06] MEDS: MELATONIN 5 MG TABLETS NR SCH (22:51)
[2022-11-06] MEDS: ATORVASTATIN CA 80 MG TABLET (FP) PEG SCH (22:54)
[2022-11-07] MEDS: guaiFENesin/D-M SUGAR-FREE/ACLHOL-FREE 5 ML UNIT DOSE GT SCH ×4 (01:07→18:17)
[2022-11-07] MEDS: TRIMETHOBENZAMIDE HCL 200MG/2ML INJ IM SCH ×3 (01:07→16:43)
[2022-11-07] MEDS: LABETALOL HCL 200 MG TABLET (FP) PEG SCH ×3 (06:16→21:37)
[2022-11-07] MEDS: hydrALAZINE HCL 50 MG TABLET (FP) GT SCH ×3 (06:17→21:36)
[2022-11-07] MEDS: HEPARIN NA (PORCINE) 5,000 UNITS/ML 1ML VIAL SQ SCH ×3 (06:17→21:36)
[2022-11-07] MEDS: ALBUTEROL SO4 2.5/IPRATROPIUM 0.5 INH SOL 3 ML VIAL.NEB. NEB SCH ×4 (07:38→21:00)
[2022-11-07] MEDS: INSULIN SLIDING SCALE (NOVOLOG) 1 VIAL SQ SCH ×4 (07:53→23:20)
[2022-11-07 09:33] LABS: BASO % 0.5 % (0-2.0); EOS % 1.7 % (0-4.5); HEMOGLOBIN 9.7 GM/dL (10.7-15.3); LYMPH % 11.3 % (8-40); MCH 30.3 pg (25.7-33.7); MCHC 33.6 g/dl (32.0-36.0); MEAN CELL VOLUME 90.1 fl (80-96); MONO % 9.9 % (3.8-10.2); NEUT % 76.6 % (42.8-82.8); PLATELET COUNT 229 10^3/uL (134-434); RBC 3.22 M/mm3 (3.60-5.2); RDW 16.4 % (11.6-15.6); WHITE BLOOD COUNT 5.6 K/mm3 (4.0-10.0)
[2022-11-07 10:09] LABS: ALBUMIN 2.7 g/dl (3.4-5.0); BLOOD UREA NITROGEN 26.4 mg/dL (7-18); CALCIUM 9.6 mg/dL (8.5-10.1)
[2022-11-07 10:13] LABS: BILIRUBIN,TOTAL 0.5 mg/dL (0.2-1); CREATININE 2.6 mg/dL (0.55-1.3); TOT PROT 6.1 g/dl (6.4-8.2)
[2022-11-07] MEDS: KCL 10 MEQ IVPB 10 MEQ/100 ML INFUS.BAG IVPB SCH ×2 (11:00→14:23)
[2022-11-07] MEDS: AMINO ACIDS/PROTEIN HYDROLYS 30 ML LIQUID.PKT PEG SCH (11:18)
[2022-11-07] MEDS: Lacosamide 50 MG/5 ML ORAL SOLUTION UNIT CUPS PEG SCH ×2 (11:19→21:37)
[2022-11-07] MEDS: POLYETHYLENE GLYCOL (HEALTHYLAX) 3350 17 GM PACKET PO SCH ×2 (11:19→21:10)
[2022-11-07] MEDS: LISINOPRIL 10 MG TABLET PO SCH (11:19)
[2022-11-07] MEDS: amLODIPine BESYLATE 10 MG TABLET (FP) PEG SCH (11:19)
[2022-11-07] MEDS: LACTOBACILLUS ACIDOPHILUS 1 TABLET GT SCH (11:20)
[2022-11-07] MEDS: ASPIRIN 81 MG CHEWABLE TABLETS PEG SCH (11:20)
[2022-11-07] MEDS: PANTOPRAZOLE SODIUM 40 MG VIAL IVPUSH SCH (11:20)
[2022-11-07] MEDS: INSULIN (LEVEMIR) 100 UNITS/ML UNITS SQ SCH ×2 (11:20→23:19)
[2022-11-07] MEDS: VITAMIN B COMP W-C 1 EA TABLET (NEPHRO-VITE) PEG SCH (11:20)
[2022-11-07] MEDS: FLUoxetine HCL 20 MG/5 ML 120 BOTTLE PEG SCH (11:27)
[2022-11-07] MEDS: ZINC OXIDE 20% TOPICAL OINTMENT 30 GM TUBE TP SCH (11:27)
[2022-11-07] MEDS: COLLAGENASE CLOSTRIDIUM HIST. 30 GRAMS TUBE TP SCH (11:27)
[2022-11-07] MEDS ORDERED: LISINOPRIL 10 MG TABLET PO ONE (13:44)
[2022-11-07] MEDS ORDERED: SIMETHICONE 40 MG/0.6 ML BOTTLE PO SCH (14:00)
[2022-11-07] MEDS: SIMETHICONE 40 MG/0.6 ML BOTTLE PEG SCH ×3 (16:42→21:37)
[2022-11-07] MEDS: AMINO ACIDS 4.25%/D5W 1,000 ML IV SCH (18:57)
[2022-11-07] MEDS: SENNOSIDES 8.8 MG/5 ML BULK BOTTLE PEG SCH (21:12)
[2022-11-07] MEDS: ACETAMINOPHEN 650 MG/20.3 ML ORAL SOLUTION (CUPS) PEG PRN (21:15)
[2022-11-07] MEDS: ATORVASTATIN CA 80 MG TABLET (FP) PEG SCH (21:37)
[2022-11-07] MEDS: MELATONIN 5 MG TABLETS NR SCH (21:37)
[2022-11-08] MEDS: TRIMETHOBENZAMIDE HCL 200MG/2ML INJ IM SCH (00:45)
[2022-11-08] MEDS: guaiFENesin/D-M SUGAR-FREE/ACLHOL-FREE 5 ML UNIT DOSE GT SCH ×4 (04:53→20:24)
[2022-11-08] MEDS: hydrALAZINE HCL 50 MG TABLET (FP) GT SCH ×3 (06:38→22:03)
[2022-11-08] MEDS: LABETALOL HCL 200 MG TABLET (FP) PEG SCH ×3 (06:38→22:04)
[2022-11-08] MEDS: HEPARIN NA (PORCINE) 5,000 UNITS/ML 1ML VIAL SQ SCH ×3 (06:39→22:03)
[2022-11-08] MEDS: INSULIN SLIDING SCALE (NOVOLOG) 1 VIAL SQ SCH ×4 (06:55→22:06)
[2022-11-08] MEDS: ALBUTEROL SO4 2.5/IPRATROPIUM 0.5 INH SOL 3 ML VIAL.NEB. NEB SCH ×4 (07:10→20:05)
[2022-11-08 08:31] LABS: BASO % 0.5 % (0-2.0); EOS % 2.9 % (0-4.5); HEMATOCRIT 28.1 % (32.4-45.2); HEMOGLOBIN 9.3 GM/dL (10.7-15.3); LYMPH % 19.8 % (8-40); MCH 30.2 pg (25.7-33.7); MCHC 33.3 g/dl (32.0-36.0); MEAN CELL VOLUME 90.7 fl (80-96); MONO % 8.7 % (3.8-10.2); NEUT % 68.1 % (42.8-82.8); PLATELET COUNT 240 10^3/uL (134-434); RDW 16.7 % (11.6-15.6); WHITE BLOOD COUNT 5.2 K/mm3 (4.0-10.0)
[2022-11-08 09:09] LABS: CALCIUM 10.2 mg/dL (8.5-10.1)
[2022-11-08 09:10] LABS: ALBUMIN 2.7 g/dl (3.4-5.0)
[2022-11-08 09:11] LABS: BLOOD UREA NITROGEN 38.1 mg/dL (7-18); MAGNESIUM 1.7 mg/dL (1.8-2.4)
[2022-11-08 09:13] LABS: CREATININE 3.5 mg/dL (0.55-1.3)
[2022-11-08 09:14] LABS: PHOSPHOROUS 1.3 mg/dL (2.5-4.9)
[2022-11-08 09:15] LABS: TOT PROT 5.9 g/dl (6.4-8.2)
[2022-11-08 09:22] LABS: BILIRUBIN,TOTAL 0.5 mg/dL (0.2-1)
[2022-11-08] MEDS: PANTOPRAZOLE SODIUM 40 MG VIAL IVPUSH SCH (11:52)
[2022-11-08] MEDS: Lacosamide 50 MG/5 ML ORAL SOLUTION UNIT CUPS PEG SCH ×2 (11:52→22:02)
[2022-11-08] MEDS: LISINOPRIL 20 MG TABLET PO SCH (11:53)
[2022-11-08] MEDS: ASPIRIN 81 MG CHEWABLE TABLETS PEG SCH (11:53)
[2022-11-08] MEDS: LACTOBACILLUS ACIDOPHILUS 1 TABLET GT SCH (11:53)
[2022-11-08] MEDS: VITAMIN B COMP W-C 1 EA TABLET (NEPHRO-VITE) PEG SCH (11:53)
[2022-11-08] MEDS: amLODIPine BESYLATE 10 MG TABLET (FP) PEG SCH (11:53)
[2022-11-08] MEDS: SIMETHICONE 40 MG/0.6 ML BOTTLE PEG SCH ×4 (11:54→22:02)
[2022-11-08] MEDS: POLYETHYLENE GLYCOL (HEALTHYLAX) 3350 17 GM PACKET PO SCH ×2 (11:54→22:03)
[2022-11-08] MEDS: AMINO ACIDS/PROTEIN HYDROLYS 30 ML LIQUID.PKT PEG SCH (11:54)
[2022-11-08] MEDS: FLUoxetine HCL 20 MG/5 ML 120 BOTTLE PEG SCH (11:55)
[2022-11-08] MEDS: COLLAGENASE CLOSTRIDIUM HIST. 30 GRAMS TUBE TP SCH (11:57)
[2022-11-08] MEDS: cloNIDine-TTS 0.3 MG /24 HRS PATCH.TDWK TD SCH (11:57)
[2022-11-08] MEDS: ZINC OXIDE 20% TOPICAL OINTMENT 30 GM TUBE TP SCH (11:57)
[2022-11-08] MEDS ORDERED: SODIUM CHLORIDE 250 ML IV PRN (13:07)
[2022-11-08] MEDS: INSULIN (LEVEMIR) 100 UNITS/ML UNITS SQ SCH ×2 (13:13→22:07)
[2022-11-08] MEDS ORDERED: TRIMETHOBENZAMIDE HCL 200MG/2ML INJ IM ONE (14:08)
[2022-11-08] MEDS: AMINO ACIDS 4.25%/D5W 1,000 ML IV SCH (17:10)
[2022-11-08] MEDS: SENNOSIDES 8.8 MG/5 ML BULK BOTTLE PEG SCH (22:02)
[2022-11-08] MEDS: MELATONIN 5 MG TABLETS NR SCH (22:03)
[2022-11-08] MEDS: ATORVASTATIN CA 80 MG TABLET (FP) PEG SCH (22:03)
[2022-11-09] MEDS: guaiFENesin/D-M SUGAR-FREE/ACLHOL-FREE 5 ML UNIT DOSE GT SCH ×4 (01:22→22:56)
[2022-11-09] MEDS ORDERED: ONDANSETRON 4 MG/2 ML VIAL IVPUSH ONE (05:39)
[2022-11-09] MEDS: LABETALOL HCL 200 MG TABLET (FP) PEG SCH ×3 (05:58→23:32)
[2022-11-09] MEDS: hydrALAZINE HCL 50 MG TABLET (FP) GT SCH ×3 (05:58→23:34)
[2022-11-09] MEDS: HEPARIN NA (PORCINE) 5,000 UNITS/ML 1ML VIAL SQ SCH ×3 (05:59→23:33)
[2022-11-09] MEDS: INSULIN SLIDING SCALE (NOVOLOG) 1 VIAL SQ SCH ×3 (06:10→23:35)
[2022-11-09] MEDS: ALBUTEROL SO4 2.5/IPRATROPIUM 0.5 INH SOL 3 ML VIAL.NEB. NEB SCH ×4 (07:35→21:45)
[2022-11-09] MEDS ORDERED: HEPARIN NA (PORCINE) 5,000 UNITS/ML 1ML VIAL IVPUSH ONE (08:30)
[2022-11-09 08:56] LABS: BASO % 0.3 % (0-2.0); EOS % 1.1 % (0-4.5); HEMATOCRIT 28.7 % (32.4-45.2); HEMOGLOBIN 9.7 GM/dL (10.7-15.3); LYMPH % 9.1 % (8-40); MCH 30.3 pg (25.7-33.7); MCHC 33.7 g/dl (32.0-36.0); MEAN CELL VOLUME 89.9 fl (80-96); MEAN PLT VOLUME 7.4 fl (7.5-11.1); MONO % 5.9 % (3.8-10.2); NEUT % 83.6 % (42.8-82.8); PLATELET COUNT 258 10^3/uL (134-434); RBC 3.19 M/mm3 (3.60-5.2); RDW 16.5 % (11.6-15.6); WHITE BLOOD COUNT 7.4 K/mm3 (4.0-10.0)
[2022-11-09] MEDS: PANTOPRAZOLE SODIUM 40 MG VIAL IVPUSH SCH (09:00)
[2022-11-09] MEDS ORDERED: EPOETIN ALFA-EPBX 10,000 UNIT/ML VIAL IVPUSH ONE (09:00)
[2022-11-09 09:53] LABS: CHLORIDE 91 mmol/L (98-107); SODIUM 129 mmol/L (136-145)
[2022-11-09 10:23] LABS: ALBUMIN 2.7 g/dl (3.4-5.0); ANION GAP 15 MMOL/L (8-16); BLOOD UREA NITROGEN 55.8 mg/dL (7-18); CALCIUM 10.3 mg/dL (8.5-10.1); CO2 23 mmol/L (21-32); GLUCOSE,RANDOM 132 mg/dL (74-106); MAGNESIUM 1.8 mg/dL (1.8-2.4)
[2022-11-09 10:26] LABS: CREATININE 4.5 mg/dL (0.55-1.3); SGOT/AST 13 U/L (15-37); SGPT/ALT 19 U/L (13-61)
[2022-11-09 10:27] LABS: TOT PROT 5.8 g/dl (6.4-8.2)
[2022-11-09 10:28] LABS: BILIRUBIN,TOTAL 0.6 mg/dL (0.2-1)
[2022-11-09 10:29] LABS: ALK PHOS 98 U/L (45-117)
[2022-11-09 10:37] LABS: PHOSPHOROUS 1.1 mg/dL (2.5-4.9)
[2022-11-09] MEDS ORDERED: SODIUM PHOSPHATE - 30 MM in DEXTROSE 5%-WATER - 500 ML IVPB ONE (12:30)
[2022-11-09] MEDS: AMINO ACIDS/PROTEIN HYDROLYS 30 ML LIQUID.PKT PEG SCH (12:36)
[2022-11-09] MEDS: Lacosamide 50 MG/5 ML ORAL SOLUTION UNIT CUPS PEG SCH ×2 (12:36→23:33)
[2022-11-09] MEDS: VITAMIN B COMP W-C 1 EA TABLET (NEPHRO-VITE) PEG SCH (12:37)
[2022-11-09] MEDS: POLYETHYLENE GLYCOL (HEALTHYLAX) 3350 17 GM PACKET PO SCH ×2 (12:37→23:35)
[2022-11-09] MEDS: ASPIRIN 81 MG CHEWABLE TABLETS PEG SCH (12:37)
[2022-11-09] MEDS: amLODIPine BESYLATE 10 MG TABLET (FP) PEG SCH (12:37)
[2022-11-09] MEDS: COLLAGENASE CLOSTRIDIUM HIST. 30 GRAMS TUBE TP SCH (12:41)
[2022-11-09] MEDS: ZINC OXIDE 20% TOPICAL OINTMENT 30 GM TUBE TP SCH (12:42)
[2022-11-09] MEDS: INSULIN (LEVEMIR) 100 UNITS/ML UNITS SQ SCH ×2 (13:04→23:36)
[2022-11-09] MEDS: LISINOPRIL 20 MG TABLET PO SCH (13:05)
[2022-11-09] MEDS: SIMETHICONE 40 MG/0.6 ML BOTTLE PEG SCH ×4 (15:39→23:36)
[2022-11-09] MEDS: FLUoxetine HCL 20 MG/5 ML 120 BOTTLE PEG SCH (15:40)
[2022-11-09] MEDS: ATORVASTATIN CA 80 MG TABLET (FP) PEG SCH (23:33)
[2022-11-09] MEDS: MELATONIN 5 MG TABLETS NR SCH (23:33)
[2022-11-09] MEDS: AMINO ACIDS 4.25%/D5W 1,000 ML IV SCH (23:34)
[2022-11-09] MEDS: SENNOSIDES 8.8 MG/5 ML BULK BOTTLE PEG SCH (23:36)
[2022-11-09] MEDS: ACETAMINOPHEN 650 MG/20.3 ML ORAL SOLUTION (CUPS) PEG PRN (23:36)
[2022-11-10] MEDS: guaiFENesin/D-M SUGAR-FREE/ACLHOL-FREE 5 ML UNIT DOSE GT SCH ×4 (02:12→21:22)
[2022-11-10] MEDS: hydrALAZINE HCL 50 MG TABLET (FP) GT SCH ×3 (06:11→21:20)
[2022-11-10] MEDS: LABETALOL HCL 200 MG TABLET (FP) PEG SCH ×3 (06:11→21:18)
[2022-11-10] MEDS: HEPARIN NA (PORCINE) 5,000 UNITS/ML 1ML VIAL SQ SCH ×3 (06:12→21:19)
[2022-11-10] MEDS: ALBUTEROL SO4 2.5/IPRATROPIUM 0.5 INH SOL 3 ML VIAL.NEB. NEB SCH ×3 (08:10→15:35)
[2022-11-10 09:54] LABS: BASO % 0.3 % (0-2.0); EOS % 0.8 % (0-4.5); HEMATOCRIT 26.8 % (32.4-45.2); HEMOGLOBIN 9.1 GM/dL (10.7-15.3); LYMPH % 10.7 % (8-40); MCH 30.8 pg (25.7-33.7); MCHC 34.1 g/dl (32.0-36.0); MEAN CELL VOLUME 90.3 fl (80-96); MEAN PLT VOLUME 7.3 fl (7.5-11.1); MONO % 8.1 % (3.8-10.2); NEUT % 80.1 % (42.8-82.8); PLATELET COUNT 251 10^3/uL (134-434); RBC 2.97 M/mm3 (3.60-5.2); RDW 16.8 % (11.6-15.6); WHITE BLOOD COUNT 7.2 K/mm3 (4.0-10.0)
[2022-11-10 10:15] LABS: CHLORIDE 98 mmol/L (98-107); SODIUM 138 mmol/L (136-145)
[2022-11-10] MEDS: POLYETHYLENE GLYCOL (HEALTHYLAX) 3350 17 GM PACKET PO SCH ×2 (10:31→21:19)
[2022-11-10] MEDS: LISINOPRIL 20 MG TABLET PO SCH (10:32)
[2022-11-10] MEDS: PANTOPRAZOLE SODIUM 40 MG VIAL IVPUSH SCH (10:32)
[2022-11-10 10:33] LABS: CALCIUM 9.6 mg/dL (8.5-10.1); CO2 26 mmol/L (21-32); GLUCOSE,RANDOM 122 mg/dL (74-106); MAGNESIUM 1.7 mg/dL (1.8-2.4)
[2022-11-10] MEDS: ASPIRIN 81 MG CHEWABLE TABLETS PEG SCH (10:33)
[2022-11-10] MEDS: SIMETHICONE 40 MG/0.6 ML BOTTLE PEG SCH ×4 (10:34→21:21)
[2022-11-10 10:35] LABS: CREATININE 2.8 mg/dL (0.55-1.3)
[2022-11-10] MEDS: VITAMIN B COMP W-C 1 EA TABLET (NEPHRO-VITE) PEG SCH (10:35)
[2022-11-10] MEDS: AMINO ACIDS/PROTEIN HYDROLYS 30 ML LIQUID.PKT PEG SCH (10:35)
[2022-11-10] MEDS: amLODIPine BESYLATE 10 MG TABLET (FP) PEG SCH (10:35)
[2022-11-10 10:36] LABS: BILIRUBIN,TOTAL 0.4 mg/dL (0.2-1); PHOSPHOROUS 3.2 mg/dL (2.5-4.9); SGOT/AST 14 U/L (15-37); SGPT/ALT 20 U/L (13-61); TOT PROT 5.9 g/dl (6.4-8.2)
[2022-11-10] MEDS: FLUoxetine HCL 20 MG/5 ML 120 BOTTLE PEG SCH (10:36)
[2022-11-10] MEDS: Lacosamide 50 MG/5 ML ORAL SOLUTION UNIT CUPS PEG SCH ×2 (10:37→21:21)
[2022-11-10] MEDS: ZINC OXIDE 20% TOPICAL OINTMENT 30 GM TUBE TP SCH (10:37)
[2022-11-10 10:38] LABS: ALK PHOS 97 U/L (45-117)
[2022-11-10 10:39] LABS: ANION GAP 14 MMOL/L (8-16); BLOOD UREA NITROGEN 19.6 mg/dL (7-18)
[2022-11-10] MEDS: INSULIN SLIDING SCALE (NOVOLOG) 1 VIAL SQ SCH ×4 (12:01→21:29)
[2022-11-10] MEDS ORDERED: KCL 10 MEQ IVPB 10 MEQ/100 ML INFUS.BAG IVPB SCH (12:45)
[2022-11-10] MEDS: INSULIN (LEVEMIR) 100 UNITS/ML UNITS SQ SCH ×2 (14:33→21:29)
[2022-11-10] MEDS: COLLAGENASE CLOSTRIDIUM HIST. 30 GRAMS TUBE TP SCH (16:57)
[2022-11-10] MEDS: MELATONIN 5 MG TABLETS NR SCH (21:19)
[2022-11-10] MEDS: ATORVASTATIN CA 80 MG TABLET (FP) PEG SCH (21:19)
[2022-11-10] MEDS: ACETAMINOPHEN 650 MG/20.3 ML ORAL SOLUTION (CUPS) PEG PRN (21:20)
[2022-11-10] MEDS: SENNOSIDES 8.8 MG/5 ML BULK BOTTLE PEG SCH (21:23)
[2022-11-11] MEDS: guaiFENesin/D-M SUGAR-FREE/ACLHOL-FREE 5 ML UNIT DOSE GT SCH ×4 (01:22→19:55)
[2022-11-11] MEDS: INSULIN SLIDING SCALE (NOVOLOG) 1 VIAL SQ SCH ×4 (06:30→23:22)
[2022-11-11] MEDS: hydrALAZINE HCL 50 MG TABLET (FP) GT SCH ×3 (06:31→22:51)
[2022-11-11] MEDS: LABETALOL HCL 200 MG TABLET (FP) PEG SCH ×3 (06:31→22:52)
[2022-11-11] MEDS: HEPARIN NA (PORCINE) 5,000 UNITS/ML 1ML VIAL SQ SCH ×3 (06:32→22:51)
[2022-11-11] MEDS ORDERED: SODIUM CHLORIDE 250 ML IV PRN (08:20)
[2022-11-11 08:33] LABS: BASO % 0.6 % (0-2.0); EOS % 1.4 % (0-4.5); HEMATOCRIT 26.2 % (32.4-45.2); HEMOGLOBIN 8.8 GM/dL (10.7-15.3); LYMPH % 12.9 % (8-40); MCH 30.3 pg (25.7-33.7); MCHC 33.4 g/dl (32.0-36.0); MEAN CELL VOLUME 90.6 fl (80-96); MEAN PLT VOLUME 7.3 fl (7.5-11.1); MONO % 9.9 % (3.8-10.2); NEUT % 75.2 % (42.8-82.8); PLATELET COUNT 242 10^3/uL (134-434); RDW 17.3 % (11.6-15.6); WHITE BLOOD COUNT 5.7 K/mm3 (4.0-10.0)
[2022-11-11 08:59] LABS: CHLORIDE 97 mmol/L (98-107); SODIUM 137 mmol/L (136-145)
[2022-11-11] MEDS ORDERED: EPOETIN ALFA-EPBX 10,000 UNIT/ML VIAL IVPUSH ONE (09:00)
[2022-11-11 09:03] LABS: ALBUMIN 2.8 g/dl (3.4-5.0); CALCIUM 9.6 mg/dL (8.5-10.1)
[2022-11-11 09:04] LABS: BLOOD UREA NITROGEN 27.7 mg/dL (7-18); CO2 24 mmol/L (21-32); GLUCOSE,RANDOM 121 mg/dL (74-106); MAGNESIUM 1.6 mg/dL (1.8-2.4)
[2022-11-11 09:06] LABS: CREATININE 3.6 mg/dL (0.55-1.3); PHOSPHOROUS 3.5 mg/dL (2.5-4.9)
[2022-11-11 09:07] LABS: SGOT/AST 19 U/L (15-37); SGPT/ALT 22 U/L (13-61)
[2022-11-11 09:08] LABS: BILIRUBIN,TOTAL 0.5 mg/dL (0.2-1); TOT PROT 5.6 g/dl (6.4-8.2)
[2022-11-11 09:09] LABS: ALK PHOS 97 U/L (45-117)
[2022-11-11 09:12] LABS: ANION GAP 16 MMOL/L (8-16)
[2022-11-11] MEDS ORDERED: MAGNESIUM SULF 50% (8.12 MEQ/2 ML-1 GM VIAL) IVPB ONE (10:56)
[2022-11-11] MEDS ORDERED: KCL 10 MEQ IVPB 10 MEQ/100 ML INFUS.BAG IVPB SCH (11:00)
[2022-11-11] MEDS: amLODIPine BESYLATE 10 MG TABLET (FP) PEG SCH (11:23)
[2022-11-11] MEDS: VITAMIN B COMP W-C 1 EA TABLET (NEPHRO-VITE) PEG SCH (11:23)
[2022-11-11] MEDS: PANTOPRAZOLE SODIUM 40 MG VIAL IVPUSH SCH (11:23)
[2022-11-11] MEDS: Lacosamide 50 MG/5 ML ORAL SOLUTION UNIT CUPS PEG SCH ×2 (11:23→22:54)
[2022-11-11] MEDS: AMINO ACIDS/PROTEIN HYDROLYS 30 ML LIQUID.PKT PEG SCH (11:23)
[2022-11-11] MEDS: POLYETHYLENE GLYCOL (HEALTHYLAX) 3350 17 GM PACKET PO SCH ×3 (11:24→23:24)
[2022-11-11] MEDS: ASPIRIN 81 MG CHEWABLE TABLETS PEG SCH (11:24)
[2022-11-11] MEDS: LISINOPRIL 20 MG TABLET PO SCH (11:24)
[2022-11-11] MEDS: SIMETHICONE 40 MG/0.6 ML BOTTLE PEG SCH ×3 (11:26→22:50)
[2022-11-11] MEDS: INSULIN (LEVEMIR) 100 UNITS/ML UNITS SQ SCH ×2 (11:33→22:55)
[2022-11-11] MEDS: FLUoxetine HCL 20 MG/5 ML 120 BOTTLE PEG SCH (11:35)
[2022-11-11] MEDS: COLLAGENASE CLOSTRIDIUM HIST. 30 GRAMS TUBE TP SCH (11:37)
[2022-11-11] MEDS: ZINC OXIDE 20% TOPICAL OINTMENT 30 GM TUBE TP SCH (11:41)
[2022-11-11] MEDS: ALBUTEROL SO4 0.083% IH SOL 2.5 MG/3 ML VIAL.NEB. NEB PRN (15:35)
[2022-11-11] MEDS ORDERED: INSULIN (NOVOLOG) ASPART 100 UNITS/ML 10ML VIAL ONE (17:26)
[2022-11-11] MEDS: ATORVASTATIN CA 80 MG TABLET (FP) PEG SCH (22:51)
[2022-11-11] MEDS: ACETAMINOPHEN 650 MG/20.3 ML ORAL SOLUTION (CUPS) PEG PRN (22:53)
[2022-11-11] MEDS: MELATONIN 5 MG TABLETS NR SCH (22:53)
[2022-11-11] MEDS: SENNOSIDES 8.8 MG/5 ML BULK BOTTLE PEG SCH ×2 (22:54→23:24)
[2022-11-12] MEDS: guaiFENesin/D-M SUGAR-FREE/ACLHOL-FREE 5 ML UNIT DOSE GT SCH ×4 (01:34→19:11)
[2022-11-12] MEDS ORDERED: TRIMETHOBENZAMIDE HCL 200MG/2ML INJ IM ONE (03:00)
[2022-11-12] MEDS: HEPARIN NA (PORCINE) 5,000 UNITS/ML 1ML VIAL SQ SCH ×3 (06:49→22:58)
[2022-11-12] MEDS: hydrALAZINE HCL 50 MG TABLET (FP) GT SCH ×3 (06:49→22:58)
[2022-11-12] MEDS: LABETALOL HCL 200 MG TABLET (FP) PEG SCH ×3 (06:50→22:58)
[2022-11-12] MEDS: INSULIN SLIDING SCALE (NOVOLOG) 1 VIAL SQ SCH ×4 (07:20→23:53)
[2022-11-12 09:43] LABS: BASO % 0.4 % (0-2.0); HEMATOCRIT 27.2 % (32.4-45.2); LYMPH % 19.9 % (8-40); MCH 30.2 pg (25.7-33.7); MCHC 33.1 g/dl (32.0-36.0); MEAN CELL VOLUME 91.3 fl (80-96); MEAN PLT VOLUME 7.4 fl (7.5-11.1); MONO % 10.9 % (3.8-10.2); NEUT % 67.8 % (42.8-82.8); PLATELET COUNT 237 10^3/uL (134-434); RBC 2.98 M/mm3 (3.60-5.2); RDW 17.6 % (11.6-15.6); WHITE BLOOD COUNT 4.4 K/mm3 (4.0-10.0)
[2022-11-12] MEDS ORDERED: SODIUM CHLORIDE 250 ML IV PRN (10:07)
[2022-11-12 10:11] LABS: CALCIUM 9.5 mg/dL (8.5-10.1)
[2022-11-12 10:12] LABS: ALBUMIN 2.8 g/dl (3.4-5.0); BLOOD UREA NITROGEN 13.3 mg/dL (7-18); MAGNESIUM 2.3 mg/dL (1.8-2.4)
[2022-11-12] MEDS: AMINO ACIDS/PROTEIN HYDROLYS 30 ML LIQUID.PKT PEG SCH ×2 (10:13→17:23)
[2022-11-12] MEDS: POLYETHYLENE GLYCOL (HEALTHYLAX) 3350 17 GM PACKET PO SCH ×2 (10:13→22:56)
[2022-11-12] MEDS: PANTOPRAZOLE SODIUM 40 MG VIAL IVPUSH SCH (10:13)
[2022-11-12 10:15] LABS: CREATININE 2.5 mg/dL (0.55-1.3); PHOSPHOROUS 2.1 mg/dL (2.5-4.9)
[2022-11-12 10:16] LABS: BILIRUBIN,TOTAL 0.6 mg/dL (0.2-1); TOT PROT 5.8 g/dl (6.4-8.2)
[2022-11-12] MEDS: SIMETHICONE 40 MG/0.6 ML BOTTLE PEG SCH ×5 (10:16→22:59)
[2022-11-12] MEDS: VITAMIN B COMP W-C 1 EA TABLET (NEPHRO-VITE) PEG SCH (10:17)
[2022-11-12] MEDS: amLODIPine BESYLATE 10 MG TABLET (FP) PEG SCH (10:17)
[2022-11-12] MEDS: ASPIRIN 81 MG CHEWABLE TABLETS PEG SCH (10:17)
[2022-11-12] MEDS: LISINOPRIL 20 MG TABLET PO SCH (10:18)
[2022-11-12] MEDS: Lacosamide 50 MG/5 ML ORAL SOLUTION UNIT CUPS PEG SCH (10:20)
[2022-11-12] MEDS: COLLAGENASE CLOSTRIDIUM HIST. 30 GRAMS TUBE TP SCH (10:20)
[2022-11-12] MEDS: ZINC OXIDE 20% TOPICAL OINTMENT 30 GM TUBE TP SCH (10:25)
[2022-11-12] MEDS: FLUoxetine HCL 20 MG/5 ML 120 BOTTLE PEG SCH (10:26)
[2022-11-12] MEDS ORDERED: INSULIN (NOVOLOG) ASPART 100 UNITS/ML 10ML VIAL ONE (11:54)
[2022-11-12] MEDS: INSULIN (LEVEMIR) 100 UNITS/ML UNITS SQ SCH ×2 (12:48→23:53)
[2022-11-12] MEDS ORDERED: NAPH,MB-DB/K PH,MBDB POWDER PACKET PO ONE ×2 (13:00→15:15)
[2022-11-12] MEDS: SENNOSIDES 8.8 MG/5 ML BULK BOTTLE PEG SCH (22:57)
[2022-11-12] MEDS: ATORVASTATIN CA 80 MG TABLET (FP) PEG SCH (22:59)
[2022-11-12] MEDS: MELATONIN 5 MG TABLETS NR SCH (23:59)
[2022-11-13] MEDS: ALBUTEROL SO4 0.083% IH SOL 2.5 MG/3 ML VIAL.NEB. NEB PRN ×2 (00:39→19:35)
[2022-11-13] MEDS: guaiFENesin/D-M SUGAR-FREE/ACLHOL-FREE 5 ML UNIT DOSE GT SCH ×4 (02:11→22:25)
[2022-11-13] MEDS: HEPARIN NA (PORCINE) 5,000 UNITS/ML 1ML VIAL SQ SCH ×3 (07:12→22:24)
[2022-11-13] MEDS: LABETALOL HCL 200 MG TABLET (FP) PEG SCH ×3 (07:12→22:24)
[2022-11-13] MEDS: INSULIN SLIDING SCALE (NOVOLOG) 1 VIAL SQ SCH ×4 (07:13→22:26)
[2022-11-13] MEDS: hydrALAZINE HCL 50 MG TABLET (FP) GT SCH ×3 (07:13→22:24)
[2022-11-13] MEDS ORDERED: EPOETIN ALFA-EPBX 10,000 UNIT/ML VIAL IVPUSH ONE (07:45)
[2022-11-13 08:42] LABS: BASO % 0.5 % (0-2.0); EOS % 1.1 % (0-4.5); HEMATOCRIT 27.1 % (32.4-45.2); LYMPH % 13.5 % (8-40); MCH 30.5 pg (25.7-33.7); MCHC 33.3 g/dl (32.0-36.0); MEAN CELL VOLUME 91.6 fl (80-96); MEAN PLT VOLUME 7.4 fl (7.5-11.1); MONO % 7.7 % (3.8-10.2); NEUT % 77.2 % (42.8-82.8); PLATELET COUNT 226 10^3/uL (134-434); RBC 2.96 M/mm3 (3.60-5.2); RDW 17.5 % (11.6-15.6); WHITE BLOOD COUNT 5.5 K/mm3 (4.0-10.0)
[2022-11-13 09:05] LABS: CALCIUM 9.8 mg/dL (8.5-10.1)
[2022-11-13 09:06] LABS: ALBUMIN 2.7 g/dl (3.4-5.0); BLOOD UREA NITROGEN 23.1 mg/dL (7-18); MAGNESIUM 2.5 mg/dL (1.8-2.4)
[2022-11-13 09:09] LABS: CREATININE 3.5 mg/dL (0.55-1.3); PHOSPHOROUS 3.5 mg/dL (2.5-4.9)
[2022-11-13 09:10] LABS: BILIRUBIN,TOTAL 0.6 mg/dL (0.2-1); TOT PROT 5.7 g/dl (6.4-8.2)
[2022-11-13] MEDS: ASPIRIN 81 MG CHEWABLE TABLETS PEG SCH (12:08)
[2022-11-13] MEDS: amLODIPine BESYLATE 10 MG TABLET (FP) PEG SCH (12:08)
[2022-11-13] MEDS: VITAMIN B COMP W-C 1 EA TABLET (NEPHRO-VITE) PEG SCH (12:08)
[2022-11-13] MEDS: LISINOPRIL 20 MG TABLET PO SCH (12:08)
[2022-11-13] MEDS: AMINO ACIDS/PROTEIN HYDROLYS 30 ML LIQUID.PKT PEG SCH ×2 (12:08→17:31)
[2022-11-13] MEDS: POLYETHYLENE GLYCOL (HEALTHYLAX) 3350 17 GM PACKET PO SCH ×2 (12:09→22:23)
[2022-11-13] MEDS: INSULIN (LEVEMIR) 100 UNITS/ML UNITS SQ SCH ×2 (12:09→22:23)
[2022-11-13] MEDS: PANTOPRAZOLE SODIUM 40 MG VIAL IVPUSH SCH (12:12)
[2022-11-13] MEDS: SIMETHICONE 40 MG/0.6 ML BOTTLE PEG SCH ×4 (12:12→22:24)
[2022-11-13] MEDS: COLLAGENASE CLOSTRIDIUM HIST. 30 GRAMS TUBE TP SCH (12:14)
[2022-11-13] MEDS: ZINC OXIDE 20% TOPICAL OINTMENT 30 GM TUBE TP SCH (12:14)
[2022-11-13] MEDS: FLUoxetine HCL 20 MG/5 ML 120 BOTTLE PEG SCH (12:15)
[2022-11-13] MEDS: MELATONIN 5 MG TABLETS NR SCH (22:23)
[2022-11-13] MEDS: ATORVASTATIN CA 80 MG TABLET (FP) PEG SCH (22:23)
[2022-11-13] MEDS: SENNOSIDES 8.8 MG/5 ML BULK BOTTLE PEG SCH (22:24)
[2022-11-13] MEDS: Lacosamide 50 MG/5 ML ORAL SOLUTION UNIT CUPS PEG SCH (22:26)
[2022-11-14] MEDS: guaiFENesin/D-M SUGAR-FREE/ACLHOL-FREE 5 ML UNIT DOSE GT SCH ×4 (03:57→18:52)
[2022-11-14] MEDS: LABETALOL HCL 200 MG TABLET (FP) PEG SCH ×3 (06:40→21:55)
[2022-11-14] MEDS: INSULIN SLIDING SCALE (NOVOLOG) 1 VIAL SQ SCH ×4 (06:41→21:56)
[2022-11-14] MEDS: HEPARIN NA (PORCINE) 5,000 UNITS/ML 1ML VIAL SQ SCH ×3 (06:41→21:55)
[2022-11-14] MEDS: hydrALAZINE HCL 50 MG TABLET (FP) GT SCH ×3 (06:41→21:55)
[2022-11-14 07:53] LABS: BASO % 0.3 % (0-2.0); HEMATOCRIT 31.7 % (32.4-45.2); HEMOGLOBIN 10.4 GM/dL (10.7-15.3); MCH 30.3 pg (25.7-33.7); MCHC 32.9 g/dl (32.0-36.0); MEAN PLT VOLUME 7.1 fl (7.5-11.1); MONO % 7.7 % (3.8-10.2); PLATELET COUNT 243 10^3/uL (134-434); RBC 3.44 M/mm3 (3.60-5.2); RDW 17.7 % (11.6-15.6); WHITE BLOOD COUNT 4.4 K/mm3 (4.0-10.0)
[2022-11-14 08:10] LABS: ALBUMIN 2.9 g/dl (3.4-5.0); BLOOD UREA NITROGEN 16.2 mg/dL (7-18); CALCIUM 9.7 mg/dL (8.5-10.1)
[2022-11-14 08:13] LABS: CREATININE 2.4 mg/dL (0.55-1.3)
[2022-11-14 08:14] LABS: PHOSPHOROUS 2.6 mg/dL (2.5-4.9)
[2022-11-14 08:15] LABS: BILIRUBIN,TOTAL 0.5 mg/dL (0.2-1); TOT PROT 6.2 g/dl (6.4-8.2)
[2022-11-14 09:11] LABS: INR 1.03 (0.83-1.09); PROTHROMBIN TIME (PATIENT) 11.9 SEC (9.7-13.0)
[2022-11-14] MEDS: Lacosamide 50 MG/5 ML ORAL SOLUTION UNIT CUPS PEG SCH ×2 (11:23→21:54)
[2022-11-14] MEDS: FLUoxetine HCL 20 MG/5 ML 120 BOTTLE PEG SCH (11:24)
[2022-11-14] MEDS: AMINO ACIDS/PROTEIN HYDROLYS 30 ML LIQUID.PKT PEG SCH ×2 (11:24→17:05)
[2022-11-14] MEDS: POLYETHYLENE GLYCOL (HEALTHYLAX) 3350 17 GM PACKET PO SCH ×2 (11:24→21:55)
[2022-11-14] MEDS: PANTOPRAZOLE SODIUM 40 MG VIAL IVPUSH SCH (11:24)
[2022-11-14] MEDS: SIMETHICONE 40 MG/0.6 ML BOTTLE PEG SCH ×4 (11:24→21:54)
[2022-11-14] MEDS: amLODIPine BESYLATE 10 MG TABLET (FP) PEG SCH (11:25)
[2022-11-14] MEDS: ASPIRIN 81 MG CHEWABLE TABLETS PEG SCH (11:25)
[2022-11-14] MEDS: INSULIN (LEVEMIR) 100 UNITS/ML UNITS SQ SCH ×2 (11:25→21:56)
[2022-11-14] MEDS: LISINOPRIL 20 MG TABLET PO SCH (11:25)
[2022-11-14] MEDS: VITAMIN B COMP W-C 1 EA TABLET (NEPHRO-VITE) PEG SCH (11:26)
[2022-11-14] MEDS: COLLAGENASE CLOSTRIDIUM HIST. 30 GRAMS TUBE TP SCH (11:26)
[2022-11-14] MEDS: ZINC OXIDE 20% TOPICAL OINTMENT 30 GM TUBE TP SCH (11:26)
[2022-11-14] MEDS: MELATONIN 5 MG TABLETS NR SCH (21:54)
[2022-11-14] MEDS: ATORVASTATIN CA 80 MG TABLET (FP) PEG SCH (21:55)
[2022-11-14] MEDS: SENNOSIDES 8.8 MG/5 ML BULK BOTTLE PEG SCH (21:56)
[2022-11-15] MEDS: guaiFENesin/D-M SUGAR-FREE/ACLHOL-FREE 5 ML UNIT DOSE GT SCH ×4 (01:54→19:19)
[2022-11-15] MEDS: HEPARIN NA (PORCINE) 5,000 UNITS/ML 1ML VIAL SQ SCH ×3 (06:19→22:34)
[2022-11-15] MEDS: LABETALOL HCL 200 MG TABLET (FP) PEG SCH ×3 (06:19→22:35)
[2022-11-15] MEDS: hydrALAZINE HCL 50 MG TABLET (FP) GT SCH ×3 (06:19→22:35)
[2022-11-15] MEDS: INSULIN SLIDING SCALE (NOVOLOG) 1 VIAL SQ SCH ×4 (06:19→22:36)
[2022-11-15] MEDS: AMINO ACIDS/PROTEIN HYDROLYS 30 ML LIQUID.PKT PEG SCH ×2 (08:04→17:46)
[2022-11-15] MEDS: Lacosamide 50 MG/5 ML ORAL SOLUTION UNIT CUPS PEG SCH ×2 (11:07→22:34)
[2022-11-15] MEDS: LISINOPRIL 20 MG TABLET PO SCH (11:08)
[2022-11-15] MEDS: amLODIPine BESYLATE 10 MG TABLET (FP) PEG SCH (11:08)
[2022-11-15] MEDS: PANTOPRAZOLE SODIUM 40 MG VIAL IVPUSH SCH (11:09)
[2022-11-15] MEDS: SIMETHICONE 40 MG/0.6 ML BOTTLE PEG SCH ×4 (11:10→22:34)
[2022-11-15] MEDS: ASPIRIN 81 MG CHEWABLE TABLETS PEG SCH (11:11)
[2022-11-15] MEDS: VITAMIN B COMP W-C 1 EA TABLET (NEPHRO-VITE) PEG SCH (11:12)
[2022-11-15] MEDS: FLUoxetine HCL 20 MG/5 ML 120 BOTTLE PEG SCH (11:12)
[2022-11-15] MEDS ORDERED: EPOETIN ALFA-EPBX 3,000 UNIT/ML VIAL IVPUSH ONE (11:13)
[2022-11-15] MEDS ORDERED: EPOETIN ALFA-EPBX 10,000 UNIT/ML VIAL SQ ONE (11:13)
[2022-11-15] MEDS: cloNIDine-TTS 0.3 MG /24 HRS PATCH.TDWK TD SCH (11:13)
[2022-11-15] MEDS: ZINC OXIDE 20% TOPICAL OINTMENT 30 GM TUBE TP SCH (11:31)
[2022-11-15] MEDS: COLLAGENASE CLOSTRIDIUM HIST. 30 GRAMS TUBE TP SCH (11:31)
[2022-11-15] MEDS: INSULIN (LEVEMIR) 100 UNITS/ML UNITS SQ SCH ×2 (13:26→22:35)
[2022-11-15] MEDS: POLYETHYLENE GLYCOL (HEALTHYLAX) 3350 17 GM PACKET PO SCH ×2 (13:26→22:36)
[2022-11-15] MEDS: METOCLOPRAMIDE HCL INJECTION 10 MG/2 ML VIAL IVPUSH PRN (18:02)
[2022-11-15] MEDS: ATORVASTATIN CA 80 MG TABLET (FP) PEG SCH (22:35)
[2022-11-15] MEDS: SENNOSIDES 8.8 MG/5 ML BULK BOTTLE PEG SCH (22:35)
[2022-11-15] MEDS: MELATONIN 5 MG TABLETS NR SCH (22:35)
[2022-11-16] MEDS: guaiFENesin/D-M SUGAR-FREE/ACLHOL-FREE 5 ML UNIT DOSE GT SCH ×4 (01:40→18:48)
[2022-11-16] MEDS: hydrALAZINE HCL 50 MG TABLET (FP) GT SCH ×3 (06:35→21:30)
[2022-11-16] MEDS: LABETALOL HCL 200 MG TABLET (FP) PEG SCH ×3 (06:35→21:39)
[2022-11-16] MEDS: HEPARIN NA (PORCINE) 5,000 UNITS/ML 1ML VIAL SQ SCH ×3 (06:35→21:32)
[2022-11-16] MEDS: INSULIN SLIDING SCALE (NOVOLOG) 1 VIAL SQ SCH ×4 (06:42→23:00)
[2022-11-16] MEDS: METOCLOPRAMIDE HCL INJECTION 10 MG/2 ML VIAL IVPUSH PRN (08:22)
[2022-11-16] MEDS ORDERED: SODIUM CHLORIDE 250 ML IV PRN (09:38)
[2022-11-16] MEDS: AMINO ACIDS/PROTEIN HYDROLYS 30 ML LIQUID.PKT PEG SCH ×2 (11:50→18:47)
[2022-11-16] MEDS: POLYETHYLENE GLYCOL (HEALTHYLAX) 3350 17 GM PACKET PO SCH ×2 (11:50→21:32)
[2022-11-16] MEDS: INSULIN (LEVEMIR) 100 UNITS/ML UNITS SQ SCH ×2 (11:50→23:01)
[2022-11-16] MEDS: SIMETHICONE 40 MG/0.6 ML BOTTLE PEG SCH ×4 (11:51→21:39)
[2022-11-16] MEDS: VITAMIN B COMP W-C 1 EA TABLET (NEPHRO-VITE) PEG SCH (11:51)
[2022-11-16] MEDS: LISINOPRIL 20 MG TABLET PO SCH (12:27)
[2022-11-16] MEDS: amLODIPine BESYLATE 10 MG TABLET (FP) PEG SCH (12:27)
[2022-11-16] MEDS: ASPIRIN 81 MG CHEWABLE TABLETS PEG SCH (12:28)
[2022-11-16] MEDS: Lacosamide 50 MG/5 ML ORAL SOLUTION UNIT CUPS PEG SCH ×2 (12:28→21:32)
[2022-11-16] MEDS: PANTOPRAZOLE SODIUM 40 MG VIAL IVPUSH SCH (12:28)
[2022-11-16] MEDS: FLUoxetine HCL 20 MG/5 ML 120 BOTTLE PEG SCH (12:32)
[2022-11-16] MEDS: COLLAGENASE CLOSTRIDIUM HIST. 30 GRAMS TUBE TP SCH (14:38)
[2022-11-16] MEDS: ZINC OXIDE 20% TOPICAL OINTMENT 30 GM TUBE TP SCH (16:15)
[2022-11-16] MEDS: ATORVASTATIN CA 80 MG TABLET (FP) PEG SCH (21:32)
[2022-11-16] MEDS: MELATONIN 5 MG TABLETS NR SCH (21:32)
[2022-11-16] MEDS: SENNOSIDES 8.8 MG/5 ML BULK BOTTLE PEG SCH (21:33)
[2022-11-16] MEDS: ALBUTEROL SO4 0.083% IH SOL 2.5 MG/3 ML VIAL.NEB. NEB PRN (21:37)
[2022-11-16] MEDS: ACETAMINOPHEN 650 MG/20.3 ML ORAL SOLUTION (CUPS) PEG PRN (23:23)
[2022-11-17] MEDS: guaiFENesin/D-M SUGAR-FREE/ACLHOL-FREE 5 ML UNIT DOSE GT SCH ×4 (02:45→22:25)
[2022-11-17] MEDS: HEPARIN NA (PORCINE) 5,000 UNITS/ML 1ML VIAL SQ SCH ×3 (06:45→22:22)
[2022-11-17] MEDS: hydrALAZINE HCL 50 MG TABLET (FP) GT SCH ×3 (06:46→22:26)
[2022-11-17] MEDS: LABETALOL HCL 200 MG TABLET (FP) PEG SCH ×3 (06:46→22:26)
[2022-11-17] MEDS: INSULIN SLIDING SCALE (NOVOLOG) 1 VIAL SQ SCH ×4 (07:02→23:05)
[2022-11-17] MEDS: ALBUTEROL SO4 0.083% IH SOL 2.5 MG/3 ML VIAL.NEB. NEB PRN ×2 (09:31→15:30)
[2022-11-17] MEDS: INSULIN (LEVEMIR) 100 UNITS/ML UNITS SQ SCH ×3 (10:41→22:27)
[2022-11-17] MEDS: ASPIRIN 81 MG CHEWABLE TABLETS PEG SCH (10:42)
[2022-11-17] MEDS: AMINO ACIDS/PROTEIN HYDROLYS 30 ML LIQUID.PKT PEG SCH ×2 (10:42→17:00)
[2022-11-17] MEDS: VITAMIN B COMP W-C 1 EA TABLET (NEPHRO-VITE) PEG SCH (10:43)
[2022-11-17] MEDS: PANTOPRAZOLE SODIUM 40 MG VIAL IVPUSH SCH (10:43)
[2022-11-17] MEDS: amLODIPine BESYLATE 10 MG TABLET (FP) PEG SCH (10:43)
[2022-11-17] MEDS: LISINOPRIL 20 MG TABLET PO SCH (10:43)
[2022-11-17] MEDS: POLYETHYLENE GLYCOL (HEALTHYLAX) 3350 17 GM PACKET PO SCH ×2 (10:43→22:25)
[2022-11-17] MEDS: FLUoxetine HCL 20 MG/5 ML 120 BOTTLE PEG SCH (10:43)
[2022-11-17] MEDS: SIMETHICONE 40 MG/0.6 ML BOTTLE PEG SCH ×4 (10:43→22:28)
[2022-11-17] MEDS: ZINC OXIDE 20% TOPICAL OINTMENT 30 GM TUBE TP SCH (10:44)
[2022-11-17] MEDS: COLLAGENASE CLOSTRIDIUM HIST. 30 GRAMS TUBE TP SCH (10:44)
[2022-11-17] MEDS: Lacosamide 50 MG/5 ML ORAL SOLUTION UNIT CUPS PEG SCH ×2 (10:44→22:30)
[2022-11-17 10:50] LABS: BASO % 0.5 % (0-2.0); EOS % 1.2 % (0-4.5); HEMATOCRIT 28.4 % (32.4-45.2); HEMOGLOBIN 9.4 GM/dL (10.7-15.3); LYMPH % 16.6 % (8-40); MCH 30.6 pg (25.7-33.7); MEAN CELL VOLUME 92.5 fl (80-96); MEAN PLT VOLUME 7.3 fl (7.5-11.1); MONO % 7.2 % (3.8-10.2); NEUT % 74.5 % (42.8-82.8); PLATELET COUNT 209 10^3/uL (134-434); RBC 3.07 M/mm3 (3.60-5.2); RDW 16.8 % (11.6-15.6); WHITE BLOOD COUNT 4.4 K/mm3 (4.0-10.0)
[2022-11-17 11:21] LABS: CALCIUM 9.7 mg/dL (8.5-10.1)
[2022-11-17 11:22] LABS: ALBUMIN 2.8 g/dl (3.4-5.0); MAGNESIUM 1.8 mg/dL (1.8-2.4)
[2022-11-17 11:24] LABS: BILIRUBIN,TOTAL 0.5 mg/dL (0.2-1); CREATININE 2.7 mg/dL (0.55-1.3); PHOSPHOROUS 2.2 mg/dL (2.5-4.9)
[2022-11-17 11:25] LABS: TOT PROT 5.8 g/dl (6.4-8.2)
[2022-11-17] MEDS ORDERED: INSULIN (NOVOLOG) ASPART 100 UNITS/ML 10ML VIAL ONE (11:26)
[2022-11-17] MEDS: MELATONIN 5 MG TABLETS NR SCH (22:22)
[2022-11-17] MEDS: ATORVASTATIN CA 80 MG TABLET (FP) PEG SCH (22:22)
[2022-11-17] MEDS: SENNOSIDES 8.8 MG/5 ML BULK BOTTLE PEG SCH (22:53)
[2022-11-18] MEDS: guaiFENesin/D-M SUGAR-FREE/ACLHOL-FREE 5 ML UNIT DOSE GT SCH ×4 (01:11→18:35)
[2022-11-18 05:59] VITALS: RESP 18
[2022-11-18] MEDS: HEPARIN NA (PORCINE) 5,000 UNITS/ML 1ML VIAL SQ SCH ×3 (07:10→23:38)
[2022-11-18] MEDS: LABETALOL HCL 200 MG TABLET (FP) PEG SCH ×3 (07:11→23:36)
[2022-11-18] MEDS: hydrALAZINE HCL 50 MG TABLET (FP) GT SCH ×3 (07:12→23:40)
[2022-11-18] MEDS: INSULIN SLIDING SCALE (NOVOLOG) 1 VIAL SQ SCH ×4 (07:13→23:38)
[2022-11-18] MEDS: POLYETHYLENE GLYCOL (HEALTHYLAX) 3350 17 GM PACKET PO SCH ×2 (10:33→23:37)
[2022-11-18] MEDS: AMINO ACIDS/PROTEIN HYDROLYS 30 ML LIQUID.PKT PEG SCH ×2 (10:33→18:16)
[2022-11-18] MEDS: INSULIN (LEVEMIR) 100 UNITS/ML UNITS SQ SCH ×2 (10:33→23:37)
[2022-11-18] MEDS: SIMETHICONE 40 MG/0.6 ML BOTTLE PEG SCH ×4 (10:34→23:41)
[2022-11-18 14:56] LABS: HEMOGLOBIN 8.6 GM/dL (10.7-15.3); RBC 2.92 M/mm3 (3.60-5.2)
[2022-11-18 14:57] LABS: BASO % 0.3 % (0-2.0); EOS % 1.1 % (0-4.5); LYMPH % 11.4 % (8-40); MCH 29.6 pg (25.7-33.7); MEAN CELL VOLUME 92.7 fl (80-96); MONO % 6.5 % (3.8-10.2); NEUT % 80.7 % (42.8-82.8); PLATELET COUNT 210 10^3/uL (134-434); RDW 17.1 % (11.6-15.6)
[2022-11-18 15:19] LABS: CHLORIDE 98 mmol/L (98-107); SODIUM 134 mmol/L (136-145)
[2022-11-18 15:21] LABS: ALBUMIN 2.7 g/dl (3.4-5.0); BLOOD UREA NITROGEN 27.3 mg/dL (7-18); CALCIUM 9.9 mg/dL (8.5-10.1); CO2 26 mmol/L (21-32); GLUCOSE,RANDOM 147 mg/dL (74-106); MAGNESIUM 1.9 mg/dL (1.8-2.4)
[2022-11-18 15:24] LABS: CREATININE 3.7 mg/dL (0.55-1.3); PHOSPHOROUS 3.3 mg/dL (2.5-4.9); SGOT/AST 15 U/L (15-37); SGPT/ALT 25 U/L (13-61)
[2022-11-18 15:26] LABS: BILIRUBIN,TOTAL 0.5 mg/dL (0.2-1); TOT PROT 5.8 g/dl (6.4-8.2)
[2022-11-18 15:27] LABS: ALK PHOS 121 U/L (45-117)
[2022-11-18 15:34] LABS: ANION GAP 10 MMOL/L (8-16)
[2022-11-18] MEDS ORDERED: INSULIN REGULAR HUMAN 100 UNITS/ML *VIAL IVPUSH ONE (15:54)
[2022-11-18] MEDS ORDERED: SODIUM ZIRCONIUM CYCLOSILICATE (LOKELMA) 5 GM PACKET PO ONE (15:54)
[2022-11-18] MEDS ORDERED: DEXTROSE 50%-WATER 25 GM/50 ML DISP.SYRIN IVPUSH ONE (15:55)
[2022-11-18] MEDS ORDERED: CALCIUM GLUCONATE IN NACL 1 GM/50 ML BAG IVPB ONE (15:55)
[2022-11-18] MEDS ORDERED: CALCIUM GLUCONATE 10% - 1,000 MG/10 ML VIAL IVPB ONE (16:15)
[2022-11-18] MEDS: VITAMIN B COMP W-C 1 EA TABLET (NEPHRO-VITE) PEG SCH (17:40)
[2022-11-18] MEDS: ASPIRIN 81 MG CHEWABLE TABLETS PEG SCH (17:41)
[2022-11-18] MEDS: Lacosamide 50 MG/5 ML ORAL SOLUTION UNIT CUPS PEG SCH (17:42)
[2022-11-18] MEDS: LISINOPRIL 20 MG TABLET PO SCH (17:42)
[2022-11-18] MEDS: amLODIPine BESYLATE 10 MG TABLET (FP) PEG SCH (17:42)
[2022-11-18] MEDS: FLUoxetine HCL 20 MG/5 ML 120 BOTTLE PEG SCH (17:42)
[2022-11-18] MEDS: COLLAGENASE CLOSTRIDIUM HIST. 30 GRAMS TUBE TP SCH (17:42)
[2022-11-18] MEDS: ZINC OXIDE 20% TOPICAL OINTMENT 30 GM TUBE TP SCH (17:43)
[2022-11-18] MEDS: PANTOPRAZOLE SODIUM 40 MG VIAL IVPUSH SCH (17:43)
[2022-11-18] MEDS ORDERED: SODIUM CHLORIDE 250 ML IV PRN (18:51)
[2022-11-18] MEDS: ATORVASTATIN CA 80 MG TABLET (FP) PEG SCH (23:36)
[2022-11-18] MEDS: MELATONIN 5 MG TABLETS NR SCH (23:36)
[2022-11-19] MEDS: SENNOSIDES 8.8 MG/5 ML BULK BOTTLE PEG SCH ×2 (00:06→21:59)
[2022-11-19] MEDS: Lacosamide 50 MG/5 ML ORAL SOLUTION UNIT CUPS PEG SCH ×3 (00:06→21:56)
[2022-11-19] MEDS: guaiFENesin/D-M SUGAR-FREE/ACLHOL-FREE 5 ML UNIT DOSE GT SCH ×4 (01:56→20:13)
[2022-11-19] MEDS: HEPARIN NA (PORCINE) 5,000 UNITS/ML 1ML VIAL SQ SCH ×3 (07:01→21:57)
[2022-11-19] MEDS: hydrALAZINE HCL 50 MG TABLET (FP) GT SCH ×3 (07:03→21:57)
[2022-11-19] MEDS: INSULIN SLIDING SCALE (NOVOLOG) 1 VIAL SQ SCH ×4 (07:03→21:59)
[2022-11-19] MEDS: LABETALOL HCL 200 MG TABLET (FP) PEG SCH ×3 (07:03→21:56)
[2022-11-19 09:56] LABS: BASO % 0.6 % (0-2.0); EOS % 1.6 % (0-4.5); HEMATOCRIT 27.4 % (32.4-45.2); HEMOGLOBIN 8.8 GM/dL (10.7-15.3); LYMPH % 15.4 % (8-40); MCH 29.8 pg (25.7-33.7); MCHC 32.3 g/dl (32.0-36.0); MEAN CELL VOLUME 92.3 fl (80-96); MEAN PLT VOLUME 7.5 fl (7.5-11.1); MONO % 7.6 % (3.8-10.2); NEUT % 74.8 % (42.8-82.8); PLATELET COUNT 219 10^3/uL (134-434); RBC 2.97 M/mm3 (3.60-5.2); WHITE BLOOD COUNT 4.8 K/mm3 (4.0-10.0)
[2022-11-19 10:18] LABS: CALCIUM 9.2 mg/dL (8.5-10.1)
[2022-11-19 10:19] LABS: ALBUMIN 2.7 g/dl (3.4-5.0); BLOOD UREA NITROGEN 11.5 mg/dL (7-18); MAGNESIUM 1.7 mg/dL (1.8-2.4)
[2022-11-19 10:20] LABS: CREATININE 2.2 mg/dL (0.55-1.3); PHOSPHOROUS 2.2 mg/dL (2.5-4.9)
[2022-11-19 10:21] LABS: TOT PROT 5.8 g/dl (6.4-8.2)
[2022-11-19 10:22] LABS: BILIRUBIN,TOTAL 0.5 mg/dL (0.2-1)
[2022-11-19] MEDS: ASPIRIN 81 MG CHEWABLE TABLETS PEG SCH (10:49)
[2022-11-19] MEDS: LISINOPRIL 20 MG TABLET PO SCH (10:49)
[2022-11-19] MEDS: amLODIPine BESYLATE 10 MG TABLET (FP) PEG SCH (10:50)
[2022-11-19] MEDS: SIMETHICONE 40 MG/0.6 ML BOTTLE PEG SCH ×4 (10:50→21:57)
[2022-11-19] MEDS: AMINO ACIDS/PROTEIN HYDROLYS 30 ML LIQUID.PKT PEG SCH ×2 (10:50→18:50)
[2022-11-19] MEDS: PANTOPRAZOLE SODIUM 40 MG VIAL IVPUSH SCH (10:50)
[2022-11-19] MEDS: INSULIN (LEVEMIR) 100 UNITS/ML UNITS SQ SCH ×3 (10:50→21:59)
[2022-11-19] MEDS: VITAMIN B COMP W-C 1 EA TABLET (NEPHRO-VITE) PEG SCH (10:50)
[2022-11-19] MEDS: COLLAGENASE CLOSTRIDIUM HIST. 30 GRAMS TUBE TP SCH (10:51)
[2022-11-19] MEDS: ZINC OXIDE 20% TOPICAL OINTMENT 30 GM TUBE TP SCH (10:51)
[2022-11-19] MEDS: POLYETHYLENE GLYCOL (HEALTHYLAX) 3350 17 GM PACKET PO SCH ×2 (10:51→21:57)
[2022-11-19] MEDS: FLUoxetine HCL 20 MG/5 ML 120 BOTTLE PEG SCH (10:52)
[2022-11-19] MEDS ORDERED: SODIUM CHLORIDE 250 ML IV PRN (21:07)
[2022-11-19] MEDS: ATORVASTATIN CA 80 MG TABLET (FP) PEG SCH (21:56)
[2022-11-19] MEDS: MELATONIN 5 MG TABLETS NR SCH (21:56)
[2022-11-20] MEDS: guaiFENesin/D-M SUGAR-FREE/ACLHOL-FREE 5 ML UNIT DOSE GT SCH ×2 (01:36→07:59)
[2022-11-20] MEDS: HEPARIN NA (PORCINE) 5,000 UNITS/ML 1ML VIAL SQ SCH (06:40)
[2022-11-20] MEDS: LABETALOL HCL 200 MG TABLET (FP) PEG SCH (06:43)
[2022-11-20] MEDS: hydrALAZINE HCL 50 MG TABLET (FP) GT SCH (06:43)
[2022-11-20] MEDS: INSULIN SLIDING SCALE (NOVOLOG) 1 VIAL SQ SCH (06:45)
[2022-11-20 07:06] VITALS: BP 155/73; TEMP 98
[2022-11-20] MEDS: ASPIRIN 81 MG CHEWABLE TABLETS PEG SCH (10:46)
[2022-11-20] MEDS: PANTOPRAZOLE SODIUM 40 MG VIAL IVPUSH SCH (10:46)
[2022-11-20] MEDS: SIMETHICONE 40 MG/0.6 ML BOTTLE PEG SCH (10:46)
[2022-11-20] MEDS: AMINO ACIDS/PROTEIN HYDROLYS 30 ML LIQUID.PKT PEG SCH (10:46)
[2022-11-20] MEDS: POLYETHYLENE GLYCOL (HEALTHYLAX) 3350 17 GM PACKET PO SCH (10:47)
[2022-11-20] MEDS: LISINOPRIL 20 MG TABLET PO SCH (10:47)
[2022-11-20] MEDS: amLODIPine BESYLATE 10 MG TABLET (FP) PEG SCH (10:47)
[2022-11-20] MEDS: COLLAGENASE CLOSTRIDIUM HIST. 30 GRAMS TUBE TP SCH (10:48)
[2022-11-20] MEDS: FLUoxetine HCL 20 MG/5 ML 120 BOTTLE PEG SCH (10:48)
[2022-11-20] MEDS: INSULIN (LEVEMIR) 100 UNITS/ML UNITS SQ SCH (10:48)
[2022-11-20] MEDS: VITAMIN B COMP W-C 1 EA TABLET (NEPHRO-VITE) PEG SCH (10:48)
[2022-11-20] MEDS: Lacosamide 50 MG/5 ML ORAL SOLUTION UNIT CUPS PEG SCH (10:49)
[2022-11-20 11:13] VITALS: PULSE 69
[2022-11-20] MEDS ORDERED: EPOETIN ALFA-EPBX 10,000 UNIT/ML VIAL SQ ONE (21:09)
== END 2022-11-20 11:43 | DRG 189 ==
LOC: JER 02:48 → SUPCPDRO 02:48 → JERBED 08:30 → J2W 18:00 → J7W 10-22 19:14
PROVIDERS: ADMIT Internal Medicine; ATTEND Internal Medicine
PROC: 5A1D70Z Performance of Urinary Filtration, Intermittent, Less than 6 Hours Per Day (ICD-10-PCS; 2022-10-23)
PROC: 0W993ZZ Drainage of Right Pleural Cavity, Percutaneous Approach (ICD-10-PCS; principal; 2022-10-26)
PROC: 5A1D70Z Performance of Urinary Filtration, Intermittent, Less than 6 Hours Per Day (ICD-10-PCS; 2022-10-26)
PROC: 5A1D70Z Performance of Urinary Filtration, Intermittent, Less than 6 Hours Per Day (ICD-10-PCS; 2022-10-28)
PROC: 5A1D70Z Performance of Urinary Filtration, Intermittent, Less than 6 Hours Per Day (ICD-10-PCS; 2022-10-28)
PROC: 5A1D70Z Performance of Urinary Filtration, Intermittent, Less than 6 Hours Per Day (ICD-10-PCS; 2022-10-30)
PROC: 0CJS8ZZ Inspection of Larynx, Via Natural or Artificial Opening Endoscopic (ICD-10-PCS; 2022-11-02)
PROC: 5A1D70Z Performance of Urinary Filtration, Intermittent, Less than 6 Hours Per Day (ICD-10-PCS; 2022-11-05)
PROC: 5A1D70Z Performance of Urinary Filtration, Intermittent, Less than 6 Hours Per Day (ICD-10-PCS; 2022-11-16)
PROC: 5A1D70Z Performance of Urinary Filtration, Intermittent, Less than 6 Hours Per Day (ICD-10-PCS; 2022-11-18)
DX: J96.21 Acute and chronic respiratory failure with hypoxia (principal); N18.6 End stage renal disease; J15.1 Pneumonia due to Pseudomonas; I12.0 Hypertensive chronic kidney disease with stage 5 chronic kidney disease or end stage renal disease; J90 Pleural effusion, not elsewhere classified; T17.890A Other foreign object in other parts of respiratory tract causing asphyxiation, initial encounter; J98.11 Atelectasis; E87.1 Hypo-osmolality and hyponatremia; N17.9 Acute kidney failure, unspecified; I96 Gangrene, not elsewhere classified; K56.7 Ileus, unspecified; R33.8 Other retention of urine; R21 Rash and other nonspecific skin eruption; E87.6 Hypokalemia; E78.5 Hyperlipidemia, unspecified; E83.52 Hypercalcemia; G93.89 Other specified disorders of brain; E83.51 Hypocalcemia; F32.A Depression, unspecified; L89.152 Pressure ulcer of sacral region, stage 2; E11.22 Type 2 diabetes mellitus with diabetic chronic kidney disease; D63.1 Anemia in chronic kidney disease; I35.0 Nonrheumatic aortic (valve) stenosis; J39.2 Other diseases of pharynx; J96.22 Acute and chronic respiratory failure with hypercapnia; R79.89 Other specified abnormal findings of blood chemistry; R49.0 Dysphonia; Z99.2 Dependence on renal dialysis; Z93.0 Tracheostomy status; Z89.421 Acquired absence of other right toe(s); Z86.73 Personal history of transient ischemic attack (TIA), and cerebral infarction without residual deficits
CPT/HCPCS: 0241U-QW; 32555; 36415; 70450-TC; 71045-TC-FY; 71046-TC-FY; 71250-TC; 74018-TC-FY; 74176-TC; 74230-TC-FY; 76604-TC; 76700-TC; 76705-TC; 80048; 80053; 80061; 81003; 82042; 82150; 82310; 82728; 82746; 82945; 82962; 82977; 83540; 83550; 83615; 83735; 83970; 83986; 84100; 84443; 84478; 84484; 85025; 85027; 85045; 85379; 85610; 85730; 86803; 87070; 87075; 87086; 87102; 87116; 87186; 87205; 87206; 87210; 87324; 87340; 87449; 88108; 88305-TC; 92611-GN; 93005; 93010; 93306-TC; 93970-TC; 94640; 97161-GP; 99285-25; C9803-CS; G0480; J1644; Q5106; U0003; U0005

== ENCOUNTER 2022-11-22 21:22 | Inpatient (IN) | payer OTHER ==
[2022-11-23] MEDS ORDERED: DEXTROSE 50%-WATER - 25 GM/50 ML VIAL IVPUSH ONE ×3 (00:04→05:59)
[2022-11-23] MEDS ORDERED: ALBUTEROL SO4 2.5/IPRATROPIUM 0.5 INH SOL 3 ML VIAL.NEB. NEB ONE (00:04)
[2022-11-23] MEDS ORDERED: DEXTROSE 50%-WATER 25 GM/50 ML DISP.SYRIN ONE ×2 (00:29→02:32)
[2022-11-23 00:43] LABS: VENOUS BASE EXCESS -1.8 mmol/L (-2-2); VENOUS O2 SATURATION 80.3 % (70-80); VENOUS PCO2 48.1 mmHg (38-52); VENOUS PH 7.323 (7.310-7.410)
[2022-11-23 00:48] LABS: BASO % 0.6 % (0-2.0); HEMATOCRIT 29.4 % (32.4-45.2); HEMOGLOBIN 9.4 GM/dL (10.7-15.3); LYMPH % 11.9 % (8-40); MCH 29.4 pg (25.7-33.7); MCHC 31.9 g/dl (32.0-36.0); MEAN CELL VOLUME 92.2 fl (80-96); MEAN PLT VOLUME 6.9 fl (7.5-11.1); MONO % 10.1 % (3.8-10.2); NEUT % 75.4 % (42.8-82.8); PLATELET COUNT 241 10^3/uL (134-434); RBC 3.19 M/mm3 (3.60-5.2); RDW 16.4 % (11.6-15.6); WHITE BLOOD COUNT 5.1 K/mm3 (4.0-10.0)
[2022-11-23 00:50] LABS: INR 0.94 (0.83-1.09); PROTHROMBIN TIME (PATIENT) 10.8 SEC (9.7-13.0)
[2022-11-23 01:02] LABS: CHLORIDE 93 mmol/L (98-107); SODIUM 128 mmol/L (136-145)
[2022-11-23 01:05] LABS: ALBUMIN 2.7 g/dl (3.4-5.0); CALCIUM 10.5 mg/dL (8.5-10.1); CO2 26 mmol/L (21-32); GLUCOSE,RANDOM 91 mg/dL (74-106); LIPASE 68 U/L (73-393)
[2022-11-23 01:06] LABS: MAGNESIUM 2.2 mg/dL (1.8-2.4)
[2022-11-23 01:08] LABS: CREATININE 5.8 mg/dL (0.55-1.3); SGOT/AST 18 U/L (15-37); SGPT/ALT 21 U/L (13-61)
[2022-11-23 01:10] LABS: BILIRUBIN,TOTAL 0.4 mg/dL (0.2-1); TOT PROT 5.8 g/dl (6.4-8.2)
[2022-11-23 01:11] LABS: ALK PHOS 110 U/L (45-117)
[2022-11-23] MEDS ORDERED: CALCIUM GLUCONATE 10% - 1,000 MG/10 ML VIAL IVPB ONE ×2 (01:17→17:29)
[2022-11-23] MEDS ORDERED: INSULIN REGULAR HUMAN 100 UNITS/ML *VIAL IVPUSH ONE ×2 (02:22→17:29)
[2022-11-23] MEDS ORDERED: CALCIUM GLUC IN NACL, ISO-OSM 1 GM/50 ML BAG IVPB ONE (02:32)
[2022-11-23] MEDS ORDERED: SODIUM ZIRCONIUM CYCLOSILICATE (LOKELMA) 5 GM PACKET PO ONE (02:41)
[2022-11-23] MEDS ORDERED: SODIUM ZIRCONIUM CYCLOSILICATE (LOKELMA) 5 GM PACKET ONE ×2 (03:50→10:23)
[2022-11-23] MEDS ORDERED: MAGNESIUM HYDROX 2400MG/30ML ORAL SUSPENSION 30 ML CUP PEG PRN (05:11)
[2022-11-23] MEDS ORDERED: hydrALAZINE HCL 50 MG TABLET (FP) GT SCH (06:00)
[2022-11-23] MEDS ORDERED: LABETALOL HCL 200 MG TABLET (FP) PEG SCH (06:00)
[2022-11-23 06:22] LABS: ANION GAP 10 MMOL/L (8-16); BLOOD UREA NITROGEN 49.2 mg/dL (7-18)
[2022-11-23] MEDS ORDERED: HEPARIN NA (PORCINE) 5,000 UNITS/ML 1ML VIAL ONE (06:53)
[2022-11-23] MEDS: INSULIN SLIDING SCALE (NOVOLOG) 1 VIAL SQ SCH ×4 (06:54→23:24)
[2022-11-23] MEDS: HEPARIN NA (PORCINE) 5,000 UNITS/ML 1ML VIAL SQ SCH ×3 (07:05→23:23)
[2022-11-23] MEDS ORDERED: SODIUM ZIRCONIUM CYCLOSILICATE (LOKELMA) 5 GM PACKET PO SCH (10:00)
[2022-11-23] MEDS ORDERED: ATORVASTATIN CA 80 MG TABLET (FP) ONE (10:23)
[2022-11-23] MEDS ORDERED: amLODIPine BESYLATE 10 MG TABLET (FP) ONE (10:23)
[2022-11-23] MEDS ORDERED: LISINOPRIL 20 MG TABLET ONE (10:23)
[2022-11-23] MEDS ORDERED: ASPIRIN 81 MG CHEWABLE TABLETS ONE (10:24)
[2022-11-23] MEDS ORDERED: LACOSAMIDE 50 MG TABLET PO ONE (10:32)
[2022-11-23] MEDS: ASPIRIN 81 MG CHEWABLE TABLETS PEG SCH (10:47)
[2022-11-23] MEDS: LACOSAMIDE 100 MG TABLET PO SCH ×2 (10:47→23:23)
[2022-11-23] MEDS: SODIUM ZIRCONIUM CYCLOSILICATE (LOKELMA) 5 GM PACKET PO SCH (10:47)
[2022-11-23] MEDS: amLODIPine BESYLATE 10 MG TABLET (FP) PEG SCH (10:48)
[2022-11-23] MEDS: FLUoxetine HCL 20 MG/5 ML 120 BOTTLE PEG SCH (10:48)
[2022-11-23] MEDS: LISINOPRIL 20 MG TABLET PO SCH (10:48)
[2022-11-23 12:14] LABS: BASO % 0.4 % (0-2.0); HEMOGLOBIN 9.4 GM/dL (10.7-15.3); LYMPH % 12.4 % (8-40); MCHC 32.6 g/dl (32.0-36.0); MEAN CELL VOLUME 91.9 fl (80-96); MEAN PLT VOLUME 7.2 fl (7.5-11.1); MONO % 8.6 % (3.8-10.2); NEUT % 77.6 % (42.8-82.8); PLATELET COUNT 226 10^3/uL (134-434); RBC 3.15 M/mm3 (3.60-5.2); RDW 16.3 % (11.6-15.6); WHITE BLOOD COUNT 5.1 K/mm3 (4.0-10.0)
[2022-11-23 12:35] LABS: CHLORIDE 95 mmol/L (98-107); SODIUM 129 mmol/L (136-145)
[2022-11-23 12:37] LABS: ALBUMIN 2.6 g/dl (3.4-5.0); BLOOD UREA NITROGEN 49.2 mg/dL (7-18); CALCIUM 10.4 mg/dL (8.5-10.1); CO2 23 mmol/L (21-32); GLUCOSE,RANDOM 103 mg/dL (74-106); MAGNESIUM 2.2 mg/dL (1.8-2.4)
[2022-11-23 12:40] LABS: PHOSPHOROUS 6.4 mg/dL (2.5-4.9); SGPT/ALT 20 U/L (13-61)
[2022-11-23 12:41] LABS: CREATININE 6.2 mg/dL (0.55-1.3); SGOT/AST 14 U/L (15-37)
[2022-11-23 12:42] LABS: BILIRUBIN,TOTAL 0.4 mg/dL (0.2-1); TOT PROT 5.5 g/dl (6.4-8.2)
[2022-11-23 12:43] LABS: ALK PHOS 101 U/L (45-117); ANION GAP 12 MMOL/L (8-16)
[2022-11-23 12:44] LABS: IRON SERUM 34 ug/dL (50-175)
[2022-11-23 12:45] LABS: TOTAL IRON BINDING CAPACITY 163 ug/dL (250-450)
[2022-11-23 12:49] LABS: N-TERMINAL BNP > 35000.0 pg/ml (5-125)
[2022-11-23 17:01] LABS: SODIUM 129 mmol/L (136-145)
[2022-11-23 17:02] LABS: CHLORIDE 94 mmol/L (98-107)
[2022-11-23 17:03] LABS: BLOOD UREA NITROGEN 51.3 mg/dL (7-18); CALCIUM 10.6 mg/dL (8.5-10.1); CO2 23 mmol/L (21-32); GLUCOSE,RANDOM 142 mg/dL (74-106)
[2022-11-23 17:06] LABS: CREATININE 6.3 mg/dL (0.55-1.3)
[2022-11-23 17:11] LABS: ANION GAP 12 MMOL/L (8-16)
[2022-11-23] MEDS ORDERED: DEXTROSE 50%-WATER 25 GM/50 ML DISP.SYRIN IVPUSH ONE (17:29)
[2022-11-23] MEDS ORDERED: CALCIUM GLUCONATE 10% - 1,000 MG/10 ML VIAL ONE (17:32)
[2022-11-23] MEDS ORDERED: MELATONIN 5 MG TABLETS PO ONE (19:46)
[2022-11-23] MEDS: INSULIN (LEVEMIR) 100 UNITS/ML UNITS SQ SCH ×2 (19:52→23:24)
[2022-11-23] MEDS: NYSTATIN 100,000 UNIT/GM TOPICAL CREAM 15 GM TUBE TP SCH ×2 (19:52→23:24)
[2022-11-23] MEDS: COLLAGENASE CLOSTRIDIUM HIST. 30 GRAMS TUBE TP SCH (19:52)
[2022-11-23] MEDS: SILVER SULFADIAZINE 1% TOP CREAM 400 GM JAR TP SCH (19:52)
[2022-11-23] MEDS: BACITRACIN ZINC 15 GM TUBE TOPICAL OINTMENT TP SCH ×2 (19:53→23:23)
[2022-11-23] MEDS ORDERED: SODIUM CHLORIDE 250 ML IV PRN (20:25)
[2022-11-23] MEDS ORDERED: EPOETIN ALFA-EPBX 4,000 UNIT/ML VIAL SQ ONE (20:30)
[2022-11-23] MEDS: ALBUTEROL SO4 2.5/IPRATROPIUM 0.5 INH SOL 3 ML VIAL.NEB. NEB PRN (20:48)
[2022-11-23] MEDS: ATORVASTATIN CA 80 MG TABLET (FP) PEG SCH (23:24)
[2022-11-24] MEDS ORDERED: TRIMETHOBENZAMIDE HCL 200MG/2ML INJ IM ONE (01:30)
[2022-11-24] MEDS: INSULIN SLIDING SCALE (NOVOLOG) 1 VIAL SQ SCH ×4 (06:07→21:29)
[2022-11-24] MEDS: HEPARIN NA (PORCINE) 5,000 UNITS/ML 1ML VIAL SQ SCH ×3 (06:07→21:28)
[2022-11-24] MEDS: INSULIN (LEVEMIR) 100 UNITS/ML UNITS SQ SCH ×2 (06:07→21:28)
[2022-11-24] MEDS ORDERED: hydrALAZINE HCL 10 MG TABLET PO ONE (06:28)
[2022-11-24] MEDS: FLUoxetine HCL 20 MG/5 ML 120 BOTTLE PEG SCH (09:25)
[2022-11-24] MEDS: SODIUM ZIRCONIUM CYCLOSILICATE (LOKELMA) 5 GM PACKET PO SCH (09:27)
[2022-11-24] MEDS: amLODIPine BESYLATE 10 MG TABLET (FP) PEG SCH (09:27)
[2022-11-24] MEDS: LISINOPRIL 20 MG TABLET PO SCH (09:28)
[2022-11-24] MEDS: ASPIRIN 81 MG CHEWABLE TABLETS PEG SCH (09:28)
[2022-11-24] MEDS ORDERED: Lacosamide 50 MG/5 ML ORAL SOLUTION UNIT CUPS PO SCH (10:00)
[2022-11-24] MEDS: NYSTATIN 100,000 UNIT/GM TOPICAL CREAM 15 GM TUBE TP SCH ×2 (10:46→21:28)
[2022-11-24] MEDS: BACITRACIN ZINC 15 GM TUBE TOPICAL OINTMENT TP SCH ×2 (10:46→21:28)
[2022-11-24] MEDS: COLLAGENASE CLOSTRIDIUM HIST. 30 GRAMS TUBE TP SCH (10:47)
[2022-11-24] MEDS: SILVER SULFADIAZINE 1% TOP CREAM 400 GM JAR TP SCH (11:14)
[2022-11-24] MEDS: Lacosamide 50 MG/5 ML ORAL SOLUTION UNIT CUPS PEG SCH ×2 (11:27→21:29)
[2022-11-24] MEDS ORDERED: FUROSEMIDE 40 MG/4 ML INJECTABLE VIAL IVPUSH ONE ×2 (13:16→16:34)
[2022-11-24] MEDS: TRIMETHOBENZAMIDE HCL 200MG/2ML INJ IM PRN (20:38)
[2022-11-24] MEDS: ATORVASTATIN CA 80 MG TABLET (FP) PEG SCH (21:28)
[2022-11-24] MEDS: LABETALOL HCL 200 MG TABLET (FP) PO SCH (21:29)
[2022-11-25] MEDS: LABETALOL HCL 200 MG TABLET (FP) PO SCH ×3 (05:39→21:13)
[2022-11-25] MEDS: HEPARIN NA (PORCINE) 5,000 UNITS/ML 1ML VIAL SQ SCH ×3 (05:39→21:13)
[2022-11-25] MEDS: INSULIN SLIDING SCALE (NOVOLOG) 1 VIAL SQ SCH ×4 (06:00→21:13)
[2022-11-25] MEDS: INSULIN (LEVEMIR) 100 UNITS/ML UNITS SQ SCH ×2 (06:00→21:13)
[2022-11-25] MEDS ORDERED: SODIUM CHLORIDE 250 ML IV PRN (09:07)
[2022-11-25] MEDS: Lacosamide 50 MG/5 ML ORAL SOLUTION UNIT CUPS PEG SCH ×2 (10:20→21:14)
[2022-11-25] MEDS: LISINOPRIL 20 MG TABLET PO SCH (10:20)
[2022-11-25] MEDS: amLODIPine BESYLATE 10 MG TABLET (FP) PEG SCH (10:20)
[2022-11-25] MEDS: SODIUM ZIRCONIUM CYCLOSILICATE (LOKELMA) 5 GM PACKET PO SCH (10:20)
[2022-11-25] MEDS: ASPIRIN 81 MG CHEWABLE TABLETS PEG SCH (10:20)
[2022-11-25] MEDS: BACITRACIN ZINC 15 GM TUBE TOPICAL OINTMENT TP SCH ×2 (10:23→21:12)
[2022-11-25] MEDS: SILVER SULFADIAZINE 1% TOP CREAM 400 GM JAR TP SCH (10:35)
[2022-11-25] MEDS: FLUoxetine HCL 20 MG/5 ML 120 BOTTLE PEG SCH (10:36)
[2022-11-25] MEDS: COLLAGENASE CLOSTRIDIUM HIST. 30 GRAMS TUBE TP SCH (10:36)
[2022-11-25] MEDS: NYSTATIN 100,000 UNIT/GM TOPICAL CREAM 15 GM TUBE TP SCH ×2 (10:37→21:13)
[2022-11-25 14:22] LABS: HEMATOCRIT 24.4 % (32.4-45.2); HEMOGLOBIN 7.8 GM/dL (10.7-15.3); MCH 29.6 pg (25.7-33.7); MCHC 32.2 g/dl (32.0-36.0); MEAN CELL VOLUME 91.8 fl (80-96); MEAN PLT VOLUME 7.8 fl (7.5-11.1); PLATELET COUNT 167 10^3/uL (134-434); RBC 2.65 M/mm3 (3.60-5.2); RDW 15.7 % (11.6-15.6)
[2022-11-25 14:30] LABS: WHITE BLOOD COUNT 1.9 K/mm3 (4.0-10.0)
[2022-11-25 14:47] LABS: ALBUMIN 2.3 g/dl (3.4-5.0)
[2022-11-25 14:48] LABS: MAGNESIUM 1.9 mg/dL (1.8-2.4)
[2022-11-25 14:50] LABS: CREATININE 3.2 mg/dL (0.55-1.3)
[2022-11-25 14:52] LABS: BILIRUBIN,TOTAL 0.4 mg/dL (0.2-1)
[2022-11-25 14:56] LABS: BLOOD UREA NITROGEN 14.8 mg/dL (7-18); CALCIUM 8.5 mg/dL (8.5-10.1)
[2022-11-25 15:16] LABS: ANISOCYTOSIS 0; MACROCYTOSIS 0
[2022-11-25] MEDS ORDERED: EPOETIN ALFA-EPBX 10,000 UNIT/ML VIAL IVPUSH ONE (16:00)
[2022-11-25] MEDS: ATORVASTATIN CA 80 MG TABLET (FP) PEG SCH (21:13)
[2022-11-26] MEDS: ACETAMINOPHEN 500 MG TABLET (FP) PO PRN (00:07)
[2022-11-26] MEDS: LABETALOL HCL 200 MG TABLET (FP) PO SCH ×3 (05:36→22:12)
[2022-11-26] MEDS: HEPARIN NA (PORCINE) 5,000 UNITS/ML 1ML VIAL SQ SCH ×3 (05:36→22:12)
[2022-11-26] MEDS: INSULIN (LEVEMIR) 100 UNITS/ML UNITS SQ SCH ×2 (06:17→22:12)
[2022-11-26] MEDS: INSULIN SLIDING SCALE (NOVOLOG) 1 VIAL SQ SCH ×4 (06:17→22:12)
[2022-11-26 08:01] LABS: BASO % 0.5 % (0-2.0); HEMATOCRIT 27.3 % (32.4-45.2); HEMOGLOBIN 8.8 GM/dL (10.7-15.3); LYMPH % 30.8 % (8-40); MCH 29.6 pg (25.7-33.7); MCHC 32.2 g/dl (32.0-36.0); MEAN CELL VOLUME 92.1 fl (80-96); MEAN PLT VOLUME 8.1 fl (7.5-11.1); MONO % 17.4 % (3.8-10.2); NEUT % 51.3 % (42.8-82.8); PLATELET COUNT 169 10^3/uL (134-434); RBC 2.96 M/mm3 (3.60-5.2); RDW 15.8 % (11.6-15.6); WHITE BLOOD COUNT 2.8 K/mm3 (4.0-10.0)
[2022-11-26] MEDS ORDERED: CEFEPIME 2 GM in DEXTROSE 5%-WATER 100 ML IVPB ONE (08:18)
[2022-11-26 08:23] LABS: BLOOD UREA NITROGEN 9.5 mg/dL (7-18)
[2022-11-26 08:24] LABS: ALBUMIN 2.5 g/dl (3.4-5.0)
[2022-11-26 08:25] LABS: CALCIUM 8.5 mg/dL (8.5-10.1)
[2022-11-26 08:26] LABS: MAGNESIUM 1.7 mg/dL (1.8-2.4); PHOSPHOROUS 2.7 mg/dL (2.5-4.9)
[2022-11-26 08:27] LABS: CREATININE 2.5 mg/dL (0.55-1.3); TOT PROT 5.4 g/dl (6.4-8.2)
[2022-11-26 08:28] LABS: BILIRUBIN,TOTAL 0.3 mg/dL (0.2-1)
[2022-11-26] MEDS ORDERED: CEFEPIME 1 GM in DEXTROSE 5%-WATER 100 ML IVPB ONE (09:00)
[2022-11-26] MEDS: Lacosamide 50 MG/5 ML ORAL SOLUTION UNIT CUPS PEG SCH ×2 (09:27→22:13)
[2022-11-26] MEDS: amLODIPine BESYLATE 10 MG TABLET (FP) PEG SCH (09:28)
[2022-11-26] MEDS: LISINOPRIL 20 MG TABLET PO SCH (09:28)
[2022-11-26] MEDS: SODIUM ZIRCONIUM CYCLOSILICATE (LOKELMA) 5 GM PACKET PO SCH (09:28)
[2022-11-26] MEDS: ASPIRIN 81 MG CHEWABLE TABLETS PEG SCH (09:28)
[2022-11-26] MEDS: FLUoxetine HCL 20 MG/5 ML 120 BOTTLE PEG SCH (09:35)
[2022-11-26] MEDS: ALBUTEROL SO4 2.5/IPRATROPIUM 0.5 INH SOL 3 ML VIAL.NEB. NEB PRN (10:09)
[2022-11-26] MEDS: BACITRACIN ZINC 15 GM TUBE TOPICAL OINTMENT TP SCH ×2 (10:35→22:12)
[2022-11-26] MEDS: NYSTATIN 100,000 UNIT/GM TOPICAL CREAM 15 GM TUBE TP SCH ×2 (10:35→22:12)
[2022-11-26] MEDS: SILVER SULFADIAZINE 1% TOP CREAM 400 GM JAR TP SCH (10:40)
[2022-11-26] MEDS: PANTOPRAZOLE SODIUM 40 MG VIAL IVPUSH SCH (11:39)
[2022-11-26] MEDS: DEXAMETHASONE SOD PHOSPHATE 10 MG/1 ML VIAL IVPUSH SCH (11:39)
[2022-11-26] MEDS: COLLAGENASE CLOSTRIDIUM HIST. 30 GRAMS TUBE TP SCH (11:40)
[2022-11-26] MEDS ORDERED: REMDESIVIR 200 MG in SODIUM CHLORIDE 250 ML IVPB ONE (12:00)
[2022-11-26] MEDS ORDERED: ALBUTEROL SO4 HFA INHALER IH PRN (15:24)
[2022-11-26] MEDS ORDERED: FUROSEMIDE 40 MG/4 ML INJECTABLE VIAL IVPUSH ONE ×2 (15:50→16:14)
[2022-11-26] MEDS: CEFTRIAXONE 1 GM in DEXTROSE 5%-WATER - 50 ML IVPB SCH (16:36)
[2022-11-26] MEDS ORDERED: hydrALAZINE HCL 10 MG TABLET PO ONE (21:26)
[2022-11-26] MEDS: ATORVASTATIN CA 80 MG TABLET (FP) PEG SCH (22:12)
[2022-11-27] MEDS: ACETAMINOPHEN 500 MG TABLET (FP) PO PRN (02:33)
[2022-11-27] MEDS: LABETALOL HCL 200 MG TABLET (FP) PO SCH (06:36)
[2022-11-27] MEDS: HEPARIN NA (PORCINE) 5,000 UNITS/ML 1ML VIAL SQ SCH ×3 (06:36→23:40)
[2022-11-27] MEDS: INSULIN SLIDING SCALE (NOVOLOG) 1 VIAL SQ SCH ×4 (06:36→23:10)
[2022-11-27] MEDS: INSULIN (LEVEMIR) 100 UNITS/ML UNITS SQ SCH ×2 (06:53→23:25)
[2022-11-27] MEDS ORDERED: SODIUM ZIRCONIUM CYCLOSILICATE (LOKELMA) 5 GM PACKET GT SCH (07:21)
[2022-11-27] MEDS ORDERED: SODIUM CHLORIDE 250 ML IV PRN (09:30)
[2022-11-27] MEDS ORDERED: EPOETIN ALFA-EPBX 10,000 UNIT/ML VIAL IVPUSH ONE (09:45)
[2022-11-27] MEDS: DEXAMETHASONE SOD PHOSPHATE 10 MG/1 ML VIAL IVPUSH SCH (10:18)
[2022-11-27] MEDS: amLODIPine BESYLATE 10 MG TABLET (FP) PEG SCH (10:18)
[2022-11-27] MEDS: CEFTRIAXONE 1 GM in DEXTROSE 5%-WATER - 50 ML IVPB SCH (10:19)
[2022-11-27] MEDS: LISINOPRIL 20 MG TABLET PO SCH (10:19)
[2022-11-27] MEDS: FLUoxetine HCL 20 MG/5 ML 120 BOTTLE PEG SCH (10:19)
[2022-11-27] MEDS: COLLAGENASE CLOSTRIDIUM HIST. 30 GRAMS TUBE TP SCH (10:20)
[2022-11-27] MEDS: Lacosamide 50 MG/5 ML ORAL SOLUTION UNIT CUPS PEG SCH ×2 (10:20→23:30)
[2022-11-27] MEDS: hydrALAZINE HCL 25 MG TABLET (FP) PEG SCH (13:17)
[2022-11-27] MEDS: ASPIRIN 81 MG CHEWABLE TABLETS PEG SCH (13:17)
[2022-11-27] MEDS: BACITRACIN ZINC 15 GM TUBE TOPICAL OINTMENT TP SCH ×2 (13:18→22:30)
[2022-11-27] MEDS: NYSTATIN 100,000 UNIT/GM TOPICAL CREAM 15 GM TUBE TP SCH ×2 (13:18→23:20)
[2022-11-27] MEDS: PANTOPRAZOLE SODIUM 40 MG VIAL IVPUSH SCH (13:19)
[2022-11-27] MEDS: SILVER SULFADIAZINE 1% TOP CREAM 400 GM JAR TP SCH (13:20)
[2022-11-27] MEDS: LABETALOL HCL 200 MG TABLET (FP) PEG SCH (14:39)
[2022-11-27] MEDS: ALBUTEROL SO4 2.5/IPRATROPIUM 0.5 INH SOL 3 ML VIAL.NEB. NEB PRN (15:51)
[2022-11-27] MEDS: ACETAMINOPHEN 650 MG/20.3 ML ORAL SOLUTION (CUPS) PEG PRN (18:47)
[2022-11-27] MEDS: ATORVASTATIN CA 80 MG TABLET (FP) PEG SCH (23:30)
[2022-11-28] MEDS: hydrALAZINE HCL 25 MG TABLET (FP) PEG SCH ×5 (00:39→22:28)
[2022-11-28] MEDS: LABETALOL HCL 200 MG TABLET (FP) PEG SCH ×4 (02:39→22:28)
[2022-11-28] MEDS: HEPARIN NA (PORCINE) 5,000 UNITS/ML 1ML VIAL SQ SCH ×3 (06:29→22:29)
[2022-11-28] MEDS: INSULIN SLIDING SCALE (NOVOLOG) 1 VIAL SQ SCH ×4 (07:30→22:25)
[2022-11-28] MEDS: INSULIN (LEVEMIR) 100 UNITS/ML UNITS SQ SCH ×2 (07:30→22:24)
[2022-11-28 08:47] LABS: BASO % 0.2 % (0-2.0); HEMATOCRIT 30.1 % (32.4-45.2); HEMOGLOBIN 9.7 GM/dL (10.7-15.3); MCH 29.6 pg (25.7-33.7); MCHC 32.2 g/dl (32.0-36.0); MEAN CELL VOLUME 91.9 fl (80-96); MEAN PLT VOLUME 8.1 fl (7.5-11.1); MONO % 6.2 % (3.8-10.2); NEUT % 80.6 % (42.8-82.8); PLATELET COUNT 193 10^3/uL (134-434); RBC 3.27 M/mm3 (3.60-5.2); RDW 15.8 % (11.6-15.6); WHITE BLOOD COUNT 4.5 K/mm3 (4.0-10.0)
[2022-11-28 09:06] LABS: CALCIUM 8.7 mg/dL (8.5-10.1)
[2022-11-28 09:07] LABS: ALBUMIN 2.6 g/dl (3.4-5.0); BLOOD UREA NITROGEN 10.3 mg/dL (7-18); MAGNESIUM 1.8 mg/dL (1.8-2.4)
[2022-11-28 09:09] LABS: CREATININE 2.6 mg/dL (0.55-1.3); PHOSPHOROUS 3.5 mg/dL (2.5-4.9)
[2022-11-28 09:11] LABS: BILIRUBIN,TOTAL 0.4 mg/dL (0.2-1); TOT PROT 5.7 g/dl (6.4-8.2)
[2022-11-28] MEDS: amLODIPine BESYLATE 10 MG TABLET (FP) PEG SCH (09:36)
[2022-11-28] MEDS: LISINOPRIL 20 MG TABLET PO SCH (09:36)
[2022-11-28] MEDS: ASPIRIN 81 MG CHEWABLE TABLETS PEG SCH (09:37)
[2022-11-28] MEDS: BACITRACIN ZINC 15 GM TUBE TOPICAL OINTMENT TP SCH ×2 (09:37→22:29)
[2022-11-28] MEDS: DEXAMETHASONE SOD PHOSPHATE 10 MG/1 ML VIAL IVPUSH SCH (09:37)
[2022-11-28] MEDS: CEFTRIAXONE 1 GM in DEXTROSE 5%-WATER - 50 ML IVPB SCH (09:38)
[2022-11-28] MEDS: NYSTATIN 100,000 UNIT/GM TOPICAL CREAM 15 GM TUBE TP SCH ×2 (09:38→22:28)
[2022-11-28] MEDS: PANTOPRAZOLE SODIUM 40 MG VIAL IVPUSH SCH (09:38)
[2022-11-28] MEDS: Lacosamide 50 MG/5 ML ORAL SOLUTION UNIT CUPS PEG SCH ×2 (09:39→22:30)
[2022-11-28] MEDS: FLUoxetine HCL 20 MG/5 ML 120 BOTTLE PEG SCH (09:44)
[2022-11-28] MEDS: TRIMETHOBENZAMIDE HCL 200MG/2ML INJ IM PRN (09:45)
[2022-11-28] MEDS: ALBUTEROL SO4 2.5/IPRATROPIUM 0.5 INH SOL 3 ML VIAL.NEB. NEB PRN ×3 (10:38→20:34)
[2022-11-28] MEDS: COLLAGENASE CLOSTRIDIUM HIST. 30 GRAMS TUBE TP SCH (11:55)
[2022-11-28] MEDS: SILVER SULFADIAZINE 1% TOP CREAM 400 GM JAR TP SCH (11:55)
[2022-11-28] MEDS: ATORVASTATIN CA 80 MG TABLET (FP) PEG SCH (22:28)
[2022-11-29] MEDS: HEPARIN NA (PORCINE) 5,000 UNITS/ML 1ML VIAL SQ SCH ×3 (06:05→22:00)
[2022-11-29] MEDS: LABETALOL HCL 200 MG TABLET (FP) PEG SCH ×3 (06:05→22:00)
[2022-11-29] MEDS: hydrALAZINE HCL 25 MG TABLET (FP) PEG SCH ×3 (06:05→22:00)
[2022-11-29] MEDS: INSULIN (LEVEMIR) 100 UNITS/ML UNITS SQ SCH ×2 (06:06→22:00)
[2022-11-29] MEDS: INSULIN SLIDING SCALE (NOVOLOG) 1 VIAL SQ SCH ×4 (06:06→22:00)
[2022-11-29 07:46] LABS: BASO % 0.1 % (0-2.0); HEMOGLOBIN 9.2 GM/dL (10.7-15.3); LYMPH % 20.7 % (8-40); MCH 28.8 pg (25.7-33.7); MCHC 31.6 g/dl (32.0-36.0); MEAN CELL VOLUME 91.1 fl (80-96); MEAN PLT VOLUME 7.6 fl (7.5-11.1); MONO % 9.4 % (3.8-10.2); NEUT % 69.8 % (42.8-82.8); PLATELET COUNT 194 10^3/uL (134-434); RBC 3.18 M/mm3 (3.60-5.2); RDW 15.8 % (11.6-15.6); WHITE BLOOD COUNT 2.7 K/mm3 (4.0-10.0)
[2022-11-29 08:01] LABS: CALCIUM 8.9 mg/dL (8.5-10.1)
[2022-11-29 08:02] LABS: ALBUMIN 2.5 g/dl (3.4-5.0); BLOOD UREA NITROGEN 15.5 mg/dL (7-18)
[2022-11-29 08:05] LABS: CREATININE 3.4 mg/dL (0.55-1.3)
[2022-11-29 08:07] LABS: BILIRUBIN,TOTAL 0.4 mg/dL (0.2-1); TOT PROT 5.5 g/dl (6.4-8.2)
[2022-11-29] MEDS ORDERED: cloNIDine-TTS 0.3 MG /24 HRS PATCH.TDWK TD SCH (10:00)
[2022-11-29] MEDS: PANTOPRAZOLE SODIUM 40 MG VIAL IVPUSH SCH (10:05)
[2022-11-29] MEDS: FLUoxetine HCL 20 MG/5 ML 120 BOTTLE PEG SCH (10:08)
[2022-11-29] MEDS: Lacosamide 50 MG/5 ML ORAL SOLUTION UNIT CUPS PEG SCH ×2 (10:09→22:00)
[2022-11-29] MEDS: ASPIRIN 81 MG CHEWABLE TABLETS PEG SCH (10:09)
[2022-11-29] MEDS: CEFTRIAXONE 1 GM in DEXTROSE 5%-WATER - 50 ML IVPB SCH (10:09)
[2022-11-29] MEDS: DEXAMETHASONE SOD PHOSPHATE 10 MG/1 ML VIAL IVPUSH SCH (10:10)
[2022-11-29] MEDS: LISINOPRIL 20 MG TABLET PO SCH (10:11)
[2022-11-29] MEDS: amLODIPine BESYLATE 10 MG TABLET (FP) PEG SCH (10:12)
[2022-11-29] MEDS: COLLAGENASE CLOSTRIDIUM HIST. 30 GRAMS TUBE TP SCH (10:12)
[2022-11-29] MEDS: SILVER SULFADIAZINE 1% TOP CREAM 400 GM JAR TP SCH (10:13)
[2022-11-29] MEDS: BACITRACIN ZINC 15 GM TUBE TOPICAL OINTMENT TP SCH ×2 (10:13→22:00)
[2022-11-29] MEDS ORDERED: SODIUM CHLORIDE 250 ML IV PRN (11:11)
[2022-11-29] MEDS: NYSTATIN 100,000 UNIT/GM TOPICAL CREAM 15 GM TUBE TP SCH ×2 (12:18→22:00)
[2022-11-29] MEDS: ATORVASTATIN CA 80 MG TABLET (FP) PEG SCH (22:00)
[2022-11-29] MEDS: ACETAMINOPHEN 650 MG/20.3 ML ORAL SOLUTION (CUPS) PEG PRN (23:25)
[2022-11-30] MEDS: hydrALAZINE HCL 25 MG TABLET (FP) PEG SCH ×3 (06:48→23:42)
[2022-11-30] MEDS: INSULIN (LEVEMIR) 100 UNITS/ML UNITS SQ SCH ×2 (06:48→23:42)
[2022-11-30] MEDS: LABETALOL HCL 200 MG TABLET (FP) PEG SCH ×3 (06:48→23:43)
[2022-11-30] MEDS: INSULIN SLIDING SCALE (NOVOLOG) 1 VIAL SQ SCH ×4 (06:48→23:43)
[2022-11-30] MEDS: BACITRACIN ZINC 15 GM TUBE TOPICAL OINTMENT TP SCH ×2 (09:52→23:42)
[2022-11-30] MEDS: ASPIRIN 81 MG CHEWABLE TABLETS PEG SCH (09:52)
[2022-11-30] MEDS: DEXAMETHASONE SOD PHOSPHATE 10 MG/1 ML VIAL IVPUSH SCH (09:53)
[2022-11-30] MEDS: NYSTATIN 100,000 UNIT/GM TOPICAL CREAM 15 GM TUBE TP SCH ×2 (09:53→23:42)
[2022-11-30] MEDS: PANTOPRAZOLE SODIUM 40 MG VIAL IVPUSH SCH (09:53)
[2022-11-30] MEDS: FLUoxetine HCL 20 MG/5 ML 120 BOTTLE PEG SCH (09:53)
[2022-11-30] MEDS: Lacosamide 50 MG/5 ML ORAL SOLUTION UNIT CUPS PEG SCH ×2 (09:54→23:44)
[2022-11-30] MEDS: COLLAGENASE CLOSTRIDIUM HIST. 30 GRAMS TUBE TP SCH (09:54)
[2022-11-30] MEDS: SILVER SULFADIAZINE 1% TOP CREAM 400 GM JAR TP SCH (09:54)
[2022-11-30] MEDS: ALBUTEROL SO4 HFA INHALER IH SCH ×2 (10:31→17:45)
[2022-11-30 13:31] LABS: HEMATOCRIT 28.4 % (32.4-45.2); HEMOGLOBIN 8.9 GM/dL (10.7-15.3); MCH 28.8 pg (25.7-33.7); MCHC 31.4 g/dl (32.0-36.0); MEAN CELL VOLUME 91.9 fl (80-96); MEAN PLT VOLUME 7.8 fl (7.5-11.1); PLATELET COUNT 194 10^3/uL (134-434); RBC 3.09 M/mm3 (3.60-5.2); RDW 15.7 % (11.6-15.6); WHITE BLOOD COUNT 3.4 K/mm3 (4.0-10.0)
[2022-11-30 13:52] LABS: CALCIUM 8.8 mg/dL (8.5-10.1)
[2022-11-30 13:53] LABS: ALBUMIN 2.5 g/dl (3.4-5.0); BLOOD UREA NITROGEN 23.2 mg/dL (7-18)
[2022-11-30 13:56] LABS: PHOSPHOROUS 4.5 mg/dL (2.5-4.9)
[2022-11-30 13:58] LABS: TOT PROT 5.5 g/dl (6.4-8.2)
[2022-11-30 14:00] LABS: BILIRUBIN,TOTAL 0.4 mg/dL (0.2-1); CREATININE 4.2 mg/dL (0.55-1.3)
[2022-11-30] MEDS ORDERED: EPOETIN ALFA-EPBX 10,000 UNIT/ML VIAL IVPUSH ONE (14:00)
[2022-11-30] MEDS ORDERED: SODIUM CHLORIDE 250 ML IV PRN (14:00)
[2022-11-30 14:13] VITALS: BMI 23.1
[2022-11-30] MEDS: amLODIPine BESYLATE 10 MG TABLET (FP) PEG SCH (16:30)
[2022-11-30] MEDS: LISINOPRIL 20 MG TABLET PO SCH (16:30)
[2022-11-30] MEDS: CEFTRIAXONE 1 GM in DEXTROSE 5%-WATER - 50 ML IVPB SCH (16:30)
[2022-11-30] MEDS: ATORVASTATIN CA 80 MG TABLET (FP) PEG SCH (23:42)
[2022-12-01] MEDS: ALBUTEROL SO4 HFA INHALER IH SCH ×3 (04:48→18:46)
[2022-12-01] MEDS: LABETALOL HCL 200 MG TABLET (FP) PEG SCH ×3 (07:37→22:00)
[2022-12-01] MEDS: hydrALAZINE HCL 25 MG TABLET (FP) PEG SCH ×3 (07:37→22:00)
[2022-12-01] MEDS: INSULIN (LEVEMIR) 100 UNITS/ML UNITS SQ SCH ×2 (07:38→22:00)
[2022-12-01] MEDS: INSULIN SLIDING SCALE (NOVOLOG) 1 VIAL SQ SCH ×4 (07:38→23:51)
[2022-12-01] MEDS: DEXAMETHASONE SOD PHOSPHATE 10 MG/1 ML VIAL IVPUSH SCH (09:28)
[2022-12-01] MEDS: BACITRACIN ZINC 15 GM TUBE TOPICAL OINTMENT TP SCH ×2 (09:28→22:00)
[2022-12-01] MEDS: PANTOPRAZOLE SODIUM 40 MG VIAL IVPUSH SCH (09:28)
[2022-12-01] MEDS: ASPIRIN 81 MG CHEWABLE TABLETS PEG SCH (09:28)
[2022-12-01] MEDS: NYSTATIN 100,000 UNIT/GM TOPICAL CREAM 15 GM TUBE TP SCH ×2 (09:28→22:00)
[2022-12-01] MEDS: LISINOPRIL 20 MG TABLET PO SCH (09:28)
[2022-12-01] MEDS: amLODIPine BESYLATE 10 MG TABLET (FP) PEG SCH (09:28)
[2022-12-01] MEDS: COLLAGENASE CLOSTRIDIUM HIST. 30 GRAMS TUBE TP SCH (09:29)
[2022-12-01] MEDS: FLUoxetine HCL 20 MG/5 ML 120 BOTTLE PEG SCH (09:29)
[2022-12-01] MEDS: CEFTRIAXONE 1 GM in DEXTROSE 5%-WATER - 50 ML IVPB SCH (09:29)
[2022-12-01] MEDS: SILVER SULFADIAZINE 1% TOP CREAM 400 GM JAR TP SCH (09:29)
[2022-12-01] MEDS: Lacosamide 50 MG/5 ML ORAL SOLUTION UNIT CUPS PEG SCH ×2 (09:29→22:00)
[2022-12-01] MEDS: TRIMETHOBENZAMIDE HCL 200MG/2ML INJ IM PRN (09:54)
[2022-12-01 12:33] LABS: BASO % 0.2 % (0-2.0); HEMATOCRIT 29.6 % (32.4-45.2); HEMOGLOBIN 9.8 GM/dL (10.7-15.3); LYMPH % 8.3 % (8-40); MCH 30.3 pg (25.7-33.7); MCHC 33.1 g/dl (32.0-36.0); MEAN CELL VOLUME 91.5 fl (80-96); MEAN PLT VOLUME 7.6 fl (7.5-11.1); MONO % 3.7 % (3.8-10.2); NEUT % 87.8 % (42.8-82.8); PLATELET COUNT 215 10^3/uL (134-434); RBC 3.23 M/mm3 (3.60-5.2); RDW 16.4 % (11.6-15.6); WHITE BLOOD COUNT 4.3 K/mm3 (4.0-10.0)
[2022-12-01 12:58] LABS: ALBUMIN 2.5 g/dl (3.4-5.0); BLOOD UREA NITROGEN 11.7 mg/dL (7-18); CALCIUM 8.9 mg/dL (8.5-10.1); MAGNESIUM 1.8 mg/dL (1.8-2.4)
[2022-12-01 13:01] LABS: CREATININE 2.7 mg/dL (0.55-1.3); PHOSPHOROUS 2.2 mg/dL (2.5-4.9)
[2022-12-01 13:02] LABS: BILIRUBIN,TOTAL 0.6 mg/dL (0.2-1)
[2022-12-01 13:03] LABS: TOT PROT 5.8 g/dl (6.4-8.2)
[2022-12-01] MEDS: HEPARIN NA (PORCINE) 5,000 UNITS/ML 1ML VIAL SQ SCH ×2 (14:27→22:00)
[2022-12-01] MEDS ORDERED: SODIUM CHLORIDE 250 ML IV PRN (18:03)
[2022-12-01] MEDS: ATORVASTATIN CA 80 MG TABLET (FP) PEG SCH (22:00)
[2022-12-02] MEDS: ALBUTEROL SO4 HFA INHALER IH SCH ×3 (01:18→17:02)
[2022-12-02] MEDS: LABETALOL HCL 200 MG TABLET (FP) PEG SCH ×3 (06:31→21:09)
[2022-12-02] MEDS: INSULIN SLIDING SCALE (NOVOLOG) 1 VIAL SQ SCH ×4 (06:31→22:19)
[2022-12-02] MEDS: INSULIN (LEVEMIR) 100 UNITS/ML UNITS SQ SCH ×2 (06:31→22:18)
[2022-12-02] MEDS: HEPARIN NA (PORCINE) 5,000 UNITS/ML 1ML VIAL SQ SCH ×3 (06:31→21:12)
[2022-12-02] MEDS: hydrALAZINE HCL 25 MG TABLET (FP) PEG SCH ×3 (06:31→21:10)
[2022-12-02 09:12] LABS: BASO % 0.1 % (0-2.0); HEMATOCRIT 28.8 % (32.4-45.2); HEMOGLOBIN 9.3 GM/dL (10.7-15.3); LYMPH % 15.4 % (8-40); MCH 29.4 pg (25.7-33.7); MCHC 32.2 g/dl (32.0-36.0); MEAN CELL VOLUME 91.3 fl (80-96); MEAN PLT VOLUME 7.7 fl (7.5-11.1); MONO % 8.5 % (3.8-10.2); PLATELET COUNT 211 10^3/uL (134-434); RBC 3.16 M/mm3 (3.60-5.2); RDW 16.5 % (11.6-15.6); WHITE BLOOD COUNT 4.1 K/mm3 (4.0-10.0)
[2022-12-02 09:29] LABS: ALBUMIN 2.4 g/dl (3.4-5.0); CALCIUM 9.1 mg/dL (8.5-10.1)
[2022-12-02 09:30] LABS: BLOOD UREA NITROGEN 19.3 mg/dL (7-18); MAGNESIUM 1.9 mg/dL (1.8-2.4)
[2022-12-02 09:32] LABS: CREATININE 3.3 mg/dL (0.55-1.3); PHOSPHOROUS 2.3 mg/dL (2.5-4.9)
[2022-12-02 09:33] LABS: TOT PROT 5.3 g/dl (6.4-8.2)
[2022-12-02 09:34] LABS: BILIRUBIN,TOTAL 0.3 mg/dL (0.2-1)
[2022-12-02] MEDS: POLYETHYLENE GLYCOL (HEALTHYLAX) 3350 17 GM PACKET PO SCH ×2 (10:46→21:11)
[2022-12-02] MEDS ORDERED: SODIUM PHOSPHATE - 15 MM in DEXTROSE 5%-WATER - 250 ML IVPB ONE (11:45)
[2022-12-02] MEDS: LISINOPRIL 20 MG TABLET PO SCH (12:03)
[2022-12-02] MEDS: ASPIRIN 81 MG CHEWABLE TABLETS PEG SCH (12:03)
[2022-12-02] MEDS: amLODIPine BESYLATE 10 MG TABLET (FP) PEG SCH (12:03)
[2022-12-02] MEDS: BACITRACIN ZINC 15 GM TUBE TOPICAL OINTMENT TP SCH ×2 (12:03→21:11)
[2022-12-02] MEDS: NYSTATIN 100,000 UNIT/GM TOPICAL CREAM 15 GM TUBE TP SCH ×2 (12:03→22:19)
[2022-12-02] MEDS: DEXAMETHASONE SOD PHOSPHATE 10 MG/1 ML VIAL IVPUSH SCH (12:03)
[2022-12-02] MEDS: SILVER SULFADIAZINE 1% TOP CREAM 400 GM JAR TP SCH (12:04)
[2022-12-02] MEDS: CEFTRIAXONE 1 GM in DEXTROSE 5%-WATER - 50 ML IVPB SCH (12:04)
[2022-12-02] MEDS: PANTOPRAZOLE SODIUM 40 MG VIAL IVPUSH SCH (12:04)
[2022-12-02] MEDS: Lacosamide 50 MG/5 ML ORAL SOLUTION UNIT CUPS PEG SCH ×2 (12:04→21:12)
[2022-12-02] MEDS: COLLAGENASE CLOSTRIDIUM HIST. 30 GRAMS TUBE TP SCH (12:04)
[2022-12-02] MEDS: FLUoxetine HCL 20 MG/5 ML 120 BOTTLE PEG SCH (12:04)
[2022-12-02] MEDS: BANATROL PLUS POWDER PACKET PO SCH ×2 (16:22→21:11)
[2022-12-02] MEDS: ATORVASTATIN CA 80 MG TABLET (FP) PEG SCH (21:10)
[2022-12-03] MEDS: hydrALAZINE HCL 25 MG TABLET (FP) PEG SCH ×3 (06:28→22:34)
[2022-12-03] MEDS: BANATROL PLUS POWDER PACKET PO SCH ×3 (06:29→22:35)
[2022-12-03] MEDS: HEPARIN NA (PORCINE) 5,000 UNITS/ML 1ML VIAL SQ SCH ×3 (06:29→22:42)
[2022-12-03] MEDS: ALBUTEROL SO4 HFA INHALER IH SCH ×3 (06:29→17:05)
[2022-12-03] MEDS: LABETALOL HCL 200 MG TABLET (FP) PEG SCH ×3 (06:30→22:34)
[2022-12-03] MEDS: INSULIN SLIDING SCALE (NOVOLOG) 1 VIAL SQ SCH ×4 (06:50→23:02)
[2022-12-03] MEDS: INSULIN (LEVEMIR) 100 UNITS/ML UNITS SQ SCH ×2 (07:00→22:42)
[2022-12-03 07:53] LABS: BASO % 0.1 % (0-2.0); HEMATOCRIT 29.5 % (32.4-45.2); HEMOGLOBIN 9.7 GM/dL (10.7-15.3); LYMPH % 14.8 % (8-40); MCH 30.2 pg (25.7-33.7); MCHC 33.1 g/dl (32.0-36.0); MEAN CELL VOLUME 91.2 fl (80-96); MEAN PLT VOLUME 7.3 fl (7.5-11.1); MONO % 8.3 % (3.8-10.2); NEUT % 76.8 % (42.8-82.8); PLATELET COUNT 190 10^3/uL (134-434); RBC 3.23 M/mm3 (3.60-5.2); RDW 15.9 % (11.6-15.6); WHITE BLOOD COUNT 4.4 K/mm3 (4.0-10.0)
[2022-12-03 09:23] LABS: ALBUMIN 2.6 g/dl (3.4-5.0); BILIRUBIN,TOTAL 0.4 mg/dL (0.2-1); BLOOD UREA NITROGEN 13.3 mg/dL (7-18); CALCIUM 9.1 mg/dL (8.5-10.1); CREATININE 2.3 mg/dL (0.55-1.3); MAGNESIUM 1.9 mg/dL (1.8-2.4); PHOSPHOROUS 2.3 mg/dL (2.5-4.9); TOT PROT 5.6 g/dl (6.4-8.2)
[2022-12-03] MEDS: ASPIRIN 81 MG CHEWABLE TABLETS PEG SCH (10:52)
[2022-12-03] MEDS: NYSTATIN 100,000 UNIT/GM TOPICAL CREAM 15 GM TUBE TP SCH ×2 (10:53→23:02)
[2022-12-03] MEDS: PANTOPRAZOLE SODIUM 40 MG VIAL IVPUSH SCH (10:53)
[2022-12-03] MEDS: amLODIPine BESYLATE 10 MG TABLET (FP) PEG SCH (10:53)
[2022-12-03] MEDS: COLLAGENASE CLOSTRIDIUM HIST. 30 GRAMS TUBE TP SCH (10:53)
[2022-12-03] MEDS: DEXAMETHASONE SOD PHOSPHATE 10 MG/1 ML VIAL IVPUSH SCH (10:53)
[2022-12-03] MEDS: SILVER SULFADIAZINE 1% TOP CREAM 400 GM JAR TP SCH (10:53)
[2022-12-03] MEDS: BACITRACIN ZINC 15 GM TUBE TOPICAL OINTMENT TP SCH ×2 (10:53→22:43)
[2022-12-03] MEDS: LISINOPRIL 20 MG TABLET PO SCH (10:53)
[2022-12-03] MEDS: POLYETHYLENE GLYCOL (HEALTHYLAX) 3350 17 GM PACKET PO SCH ×2 (10:53→22:42)
[2022-12-03] MEDS: Lacosamide 50 MG/5 ML ORAL SOLUTION UNIT CUPS PEG SCH ×2 (10:54→22:38)
[2022-12-03] MEDS: FLUoxetine HCL 20 MG/5 ML 120 BOTTLE PEG SCH (10:55)
[2022-12-03] MEDS ORDERED: DEXTROSE 50%-WATER 25 GM/50 ML DISP.SYRIN IVPUSH ONE (16:06)
[2022-12-03] MEDS ORDERED: DEXTROSE 50%-WATER 25 GM/50 ML DISP.SYRIN ONE (16:46)
[2022-12-03] MEDS ORDERED: ACETAMINOPHEN INJECTION 100 ML IVPB ONE (18:31)
[2022-12-03] MEDS: ATORVASTATIN CA 80 MG TABLET (FP) PEG SCH (22:35)
[2022-12-04] MEDS: ALBUTEROL SO4 HFA INHALER IH SCH ×3 (02:04→17:00)
[2022-12-04] MEDS: LABETALOL HCL 200 MG TABLET (FP) PEG SCH ×3 (07:13→23:28)
[2022-12-04] MEDS: BANATROL PLUS POWDER PACKET PO SCH ×3 (07:13→23:27)
[2022-12-04] MEDS: HEPARIN NA (PORCINE) 5,000 UNITS/ML 1ML VIAL SQ SCH ×3 (07:13→23:26)
[2022-12-04] MEDS: hydrALAZINE HCL 25 MG TABLET (FP) PEG SCH ×3 (07:13→23:27)
[2022-12-04] MEDS: INSULIN SLIDING SCALE (NOVOLOG) 1 VIAL SQ SCH ×4 (07:14→23:43)
[2022-12-04] MEDS: INSULIN (LEVEMIR) 100 UNITS/ML UNITS SQ SCH ×2 (07:14→23:26)
[2022-12-04] MEDS ORDERED: SODIUM CHLORIDE 250 ML IV PRN (08:06)
[2022-12-04] MEDS ORDERED: EPOETIN ALFA-EPBX 10,000 UNIT/ML VIAL SQ ONE (09:31)
[2022-12-04 09:34] LABS: HEMATOCRIT 28.6 % (32.4-45.2); HEMOGLOBIN 9.5 GM/dL (10.7-15.3); LYMPH % 12.2 % (8-40); MCHC 33.3 g/dl (32.0-36.0); MEAN CELL VOLUME 90.3 fl (80-96); MEAN PLT VOLUME 7.3 fl (7.5-11.1); MONO % 5.7 % (3.8-10.2); NEUT % 82.1 % (42.8-82.8); PLATELET COUNT 181 10^3/uL (134-434); RBC 3.16 M/mm3 (3.60-5.2); RDW 16.3 % (11.6-15.6); WHITE BLOOD COUNT 4.3 K/mm3 (4.0-10.0)
[2022-12-04 09:49] LABS: BLOOD UREA NITROGEN 21.4 mg/dL (7-18); CALCIUM 8.8 mg/dL (8.5-10.1)
[2022-12-04 09:50] LABS: ALBUMIN 2.4 g/dl (3.4-5.0); MAGNESIUM 1.6 mg/dL (1.8-2.4)
[2022-12-04 09:54] LABS: TOT PROT 5.1 g/dl (6.4-8.2)
[2022-12-04] MEDS: POLYETHYLENE GLYCOL (HEALTHYLAX) 3350 17 GM PACKET PO SCH ×2 (09:57→23:27)
[2022-12-04 10:03] LABS: BILIRUBIN,TOTAL 0.3 mg/dL (0.2-1)
[2022-12-04] MEDS: DEXAMETHASONE SOD PHOSPHATE 10 MG/1 ML VIAL IVPUSH SCH (11:14)
[2022-12-04] MEDS: ASPIRIN 81 MG CHEWABLE TABLETS PEG SCH (11:14)
[2022-12-04] MEDS: amLODIPine BESYLATE 10 MG TABLET (FP) PEG SCH (11:15)
[2022-12-04] MEDS: LISINOPRIL 20 MG TABLET PO SCH (11:15)
[2022-12-04] MEDS: PANTOPRAZOLE SODIUM 40 MG VIAL IVPUSH SCH (11:16)
[2022-12-04] MEDS: FLUoxetine HCL 20 MG/5 ML 120 BOTTLE PEG SCH (11:16)
[2022-12-04] MEDS: Lacosamide 50 MG/5 ML ORAL SOLUTION UNIT CUPS PEG SCH ×2 (11:17→23:28)
[2022-12-04] MEDS: SILVER SULFADIAZINE 1% TOP CREAM 400 GM JAR TP SCH (11:35)
[2022-12-04] MEDS: BACITRACIN ZINC 15 GM TUBE TOPICAL OINTMENT TP SCH ×2 (11:36→23:27)
[2022-12-04] MEDS: NYSTATIN 100,000 UNIT/GM TOPICAL CREAM 15 GM TUBE TP SCH ×2 (11:37→23:28)
[2022-12-04] MEDS: COLLAGENASE CLOSTRIDIUM HIST. 30 GRAMS TUBE TP SCH (11:37)
[2022-12-04] MEDS: ATORVASTATIN CA 80 MG TABLET (FP) PEG SCH (23:28)
[2022-12-05] MEDS: POLYETHYLENE GLYCOL (HEALTHYLAX) 3350 17 GM PACKET PO SCH ×3 (00:19→22:16)
[2022-12-05] MEDS: BANATROL PLUS POWDER PACKET PO SCH ×3 (00:19→22:17)
[2022-12-05] MEDS ORDERED: MAGNESIUM HYDROX 2400MG/30ML ORAL SUSPENSION 30 ML CUP PEG PRN (04:47)
[2022-12-05] MEDS ORDERED: ACETAMINOPHEN 650 MG/20.3 ML ORAL SOLUTION (CUPS) PEG PRN (04:47)
[2022-12-05] MEDS ORDERED: TRIMETHOBENZAMIDE HCL 200MG/2ML INJ IM PRN (04:47)
[2022-12-05] MEDS: ALBUTEROL SO4 HFA INHALER IH SCH ×4 (04:52→22:18)
[2022-12-05] MEDS: HEPARIN NA (PORCINE) 5,000 UNITS/ML 1ML VIAL SQ SCH ×3 (05:48→22:16)
[2022-12-05] MEDS: LABETALOL HCL 200 MG TABLET (FP) PEG SCH ×3 (05:48→22:16)
[2022-12-05] MEDS: hydrALAZINE HCL 25 MG TABLET (FP) PEG SCH ×3 (05:48→22:16)
[2022-12-05] MEDS: INSULIN (LEVEMIR) 100 UNITS/ML UNITS SQ SCH ×2 (06:25→22:24)
[2022-12-05] MEDS: INSULIN SLIDING SCALE (NOVOLOG) 1 VIAL SQ SCH ×5 (06:25→22:24)
[2022-12-05] MEDS ORDERED: ALBUTEROL SO4 2.5/IPRATROPIUM 0.5 INH SOL 3 ML VIAL.NEB. NEB ONE (06:52)
[2022-12-05] MEDS ORDERED: DEXAMETHASONE SOD PHOSPHATE 10 MG/1 ML VIAL IVPUSH SCH (10:00)
[2022-12-05] MEDS: BACITRACIN ZINC 15 GM TUBE TOPICAL OINTMENT TP SCH ×2 (10:48→22:19)
[2022-12-05] MEDS: PANTOPRAZOLE SODIUM 40 MG VIAL IVPUSH SCH (10:49)
[2022-12-05] MEDS: amLODIPine BESYLATE 10 MG TABLET (FP) PEG SCH (10:49)
[2022-12-05] MEDS: LISINOPRIL 20 MG TABLET PO SCH (10:49)
[2022-12-05] MEDS: Lacosamide 50 MG/5 ML ORAL SOLUTION UNIT CUPS PEG SCH ×2 (10:49→22:16)
[2022-12-05] MEDS: ASPIRIN 81 MG CHEWABLE TABLETS PEG SCH (10:49)
[2022-12-05] MEDS: FLUoxetine HCL 20 MG/5 ML 120 BOTTLE PEG SCH (10:50)
[2022-12-05] MEDS: NYSTATIN 100,000 UNIT/GM TOPICAL CREAM 15 GM TUBE TP SCH ×2 (10:52→22:20)
[2022-12-05] MEDS: COLLAGENASE CLOSTRIDIUM HIST. 30 GRAMS TUBE TP SCH (10:53)
[2022-12-05] MEDS: SILVER SULFADIAZINE 1% TOP CREAM 400 GM JAR TP SCH (10:55)
[2022-12-05] MEDS ORDERED: SODIUM ZIRCONIUM CYCLOSILICATE (LOKELMA) 5 GM PACKET PO SCH (13:15)
[2022-12-05] MEDS: ATORVASTATIN CA 80 MG TABLET (FP) PEG SCH (22:16)
[2022-12-06] MEDS: BANATROL PLUS POWDER PACKET PO SCH ×4 (02:20→22:14)
[2022-12-06] MEDS: POLYETHYLENE GLYCOL (HEALTHYLAX) 3350 17 GM PACKET PO SCH ×4 (02:20→22:14)
[2022-12-06] MEDS: HEPARIN NA (PORCINE) 5,000 UNITS/ML 1ML VIAL SQ SCH ×3 (06:16→22:13)
[2022-12-06] MEDS: LABETALOL HCL 200 MG TABLET (FP) PEG SCH ×3 (06:16→22:14)
[2022-12-06] MEDS: INSULIN SLIDING SCALE (NOVOLOG) 1 VIAL SQ SCH ×4 (06:16→22:28)
[2022-12-06] MEDS: INSULIN (LEVEMIR) 100 UNITS/ML UNITS SQ SCH ×2 (06:17→22:28)
[2022-12-06] MEDS: hydrALAZINE HCL 25 MG TABLET (FP) PEG SCH ×3 (06:17→22:14)
[2022-12-06] MEDS: Lacosamide 50 MG/5 ML ORAL SOLUTION UNIT CUPS PEG SCH ×2 (10:45→22:13)
[2022-12-06] MEDS: amLODIPine BESYLATE 10 MG TABLET (FP) PEG SCH (10:46)
[2022-12-06] MEDS: PANTOPRAZOLE SODIUM 40 MG VIAL IVPUSH SCH (10:46)
[2022-12-06] MEDS: ASPIRIN 81 MG CHEWABLE TABLETS PEG SCH (10:46)
[2022-12-06] MEDS: LISINOPRIL 20 MG TABLET PO SCH (10:46)
[2022-12-06] MEDS: FLUoxetine HCL 20 MG/5 ML 120 BOTTLE PEG SCH (10:48)
[2022-12-06] MEDS: cloNIDine-TTS 0.3 MG /24 HRS PATCH.TDWK TD SCH (10:53)
[2022-12-06] MEDS: COLLAGENASE CLOSTRIDIUM HIST. 30 GRAMS TUBE TP SCH (11:17)
[2022-12-06] MEDS: BACITRACIN ZINC 15 GM TUBE TOPICAL OINTMENT TP SCH ×2 (11:18→22:16)
[2022-12-06] MEDS: NYSTATIN 100,000 UNIT/GM TOPICAL CREAM 15 GM TUBE TP SCH ×2 (11:18→22:17)
[2022-12-06] MEDS: SILVER SULFADIAZINE 1% TOP CREAM 400 GM JAR TP SCH (11:20)
[2022-12-06] MEDS: DEXAMETHASONE 4 MG TABLET (FP) PO SCH (11:59)
[2022-12-06] MEDS: ALBUTEROL SO4 HFA INHALER IH SCH (12:00)
[2022-12-06] MEDS ORDERED: SODIUM CHLORIDE 250 ML IV PRN (12:01)
[2022-12-06] MEDS: ALBUTEROL SO4 2.5/IPRATROPIUM 0.5 INH SOL 3 ML VIAL.NEB. NEB SCH ×4 (12:01→20:15)
[2022-12-06] MEDS: PANTOPRAZOLE 40 MG TABLET PO SCH (12:22)
[2022-12-06] MEDS ORDERED: INSULIN (NOVOLOG) ASPART 100 UNITS/ML 10ML VIAL ONE (20:48)
[2022-12-06] MEDS: ATORVASTATIN CA 80 MG TABLET (FP) PEG SCH (22:14)
[2022-12-07] MEDS: HEPARIN NA (PORCINE) 5,000 UNITS/ML 1ML VIAL SQ SCH ×3 (05:33→21:14)
[2022-12-07] MEDS: LABETALOL HCL 200 MG TABLET (FP) PEG SCH ×3 (05:33→21:14)
[2022-12-07] MEDS: hydrALAZINE HCL 25 MG TABLET (FP) PEG SCH ×3 (05:33→21:14)
[2022-12-07] MEDS: INSULIN SLIDING SCALE (NOVOLOG) 1 VIAL SQ SCH ×4 (06:12→21:12)
[2022-12-07] MEDS: INSULIN (LEVEMIR) 100 UNITS/ML UNITS SQ SCH ×2 (06:12→21:12)
[2022-12-07] MEDS: ALBUTEROL SO4 2.5/IPRATROPIUM 0.5 INH SOL 3 ML VIAL.NEB. NEB SCH ×4 (08:05→20:11)
[2022-12-07] MEDS: POLYETHYLENE GLYCOL (HEALTHYLAX) 3350 17 GM PACKET PO SCH ×3 (11:14→21:11)
[2022-12-07] MEDS: BANATROL PLUS POWDER PACKET PO SCH ×3 (11:14→21:11)
[2022-12-07] MEDS: FLUoxetine HCL 20 MG/5 ML 120 BOTTLE PEG SCH (11:15)
[2022-12-07] MEDS: ASPIRIN 81 MG CHEWABLE TABLETS PEG SCH (11:16)
[2022-12-07] MEDS: DEXAMETHASONE 4 MG TABLET (FP) PO SCH (11:16)
[2022-12-07] MEDS: Lacosamide 50 MG/5 ML ORAL SOLUTION UNIT CUPS PEG SCH ×2 (11:17→21:15)
[2022-12-07] MEDS: BACITRACIN ZINC 15 GM TUBE TOPICAL OINTMENT TP SCH ×2 (11:18→21:17)
[2022-12-07] MEDS: COLLAGENASE CLOSTRIDIUM HIST. 30 GRAMS TUBE TP SCH (11:18)
[2022-12-07] MEDS: NYSTATIN 100,000 UNIT/GM TOPICAL CREAM 15 GM TUBE TP SCH ×2 (11:20→21:18)
[2022-12-07] MEDS: amLODIPine BESYLATE 10 MG TABLET (FP) PEG SCH (11:20)
[2022-12-07] MEDS: LISINOPRIL 20 MG TABLET PO SCH (11:21)
[2022-12-07] MEDS: SILVER SULFADIAZINE 1% TOP CREAM 400 GM JAR TP SCH (11:22)
[2022-12-07 13:19] LABS: BASO % 0.1 % (0-2.0); HEMATOCRIT 29.5 % (32.4-45.2); HEMOGLOBIN 9.6 GM/dL (10.7-15.3); LYMPH % 9.1 % (8-40); MCH 29.8 pg (25.7-33.7); MCHC 32.6 g/dl (32.0-36.0); MEAN CELL VOLUME 91.4 fl (80-96); MEAN PLT VOLUME 7.4 fl (7.5-11.1); MONO % 7.8 % (3.8-10.2); PLATELET COUNT 168 10^3/uL (134-434); RBC 3.22 M/mm3 (3.60-5.2); RDW 16.1 % (11.6-15.6); WHITE BLOOD COUNT 5.9 K/mm3 (4.0-10.0)
[2022-12-07] MEDS ORDERED: PANTOPRAZOLE SOD 40 MG SUSPENSION PACKET PO SCH (13:30)
[2022-12-07 14:00] LABS: BLOOD UREA NITROGEN 39.9 mg/dL (7-18); CALCIUM 8.8 mg/dL (8.5-10.1); MAGNESIUM 1.8 mg/dL (1.8-2.4)
[2022-12-07 14:03] LABS: PHOSPHOROUS 2.7 mg/dL (2.5-4.9)
[2022-12-07 14:04] LABS: CREATININE 4.3 mg/dL (0.55-1.3)
[2022-12-07] MEDS ORDERED: EPOETIN ALFA-EPBX 4,000 UNIT/ML VIAL IVPUSH ONE (15:00)
[2022-12-07] MEDS: PANTOPRAZOLE 40 MG TABLET PO SCH (15:15)
[2022-12-07] MEDS ORDERED: FAMOTIDINE 40 MG/5 ML ORAL SUSPENSION PEG SCH (17:00)
[2022-12-07] MEDS: FAMOTIDINE 40 MG/5 ML ORAL SUSPENSION PEG SCH (17:41)
[2022-12-07] MEDS: ATORVASTATIN CA 80 MG TABLET (FP) PEG SCH (21:14)
[2022-12-08] MEDS: HEPARIN NA (PORCINE) 5,000 UNITS/ML 1ML VIAL SQ SCH ×3 (05:47→23:30)
[2022-12-08] MEDS: hydrALAZINE HCL 25 MG TABLET (FP) PEG SCH ×3 (05:47→23:30)
[2022-12-08] MEDS: LABETALOL HCL 200 MG TABLET (FP) PEG SCH ×3 (05:47→23:31)
[2022-12-08] MEDS: INSULIN SLIDING SCALE (NOVOLOG) 1 VIAL SQ SCH ×4 (05:59→23:31)
[2022-12-08] MEDS: INSULIN (LEVEMIR) 100 UNITS/ML UNITS SQ SCH ×2 (05:59→23:31)
[2022-12-08] MEDS: ALBUTEROL SO4 2.5/IPRATROPIUM 0.5 INH SOL 3 ML VIAL.NEB. NEB SCH ×4 (07:30→20:00)
[2022-12-08 09:06] LABS: BASO % 0.1 % (0-2.0); HEMATOCRIT 29.4 % (32.4-45.2); HEMOGLOBIN 9.6 GM/dL (10.7-15.3); LYMPH % 10.2 % (8-40); MCHC 32.6 g/dl (32.0-36.0); MEAN PLT VOLUME 7.7 fl (7.5-11.1); MONO % 10.1 % (3.8-10.2); NEUT % 79.6 % (42.8-82.8); PLATELET COUNT 178 10^3/uL (134-434); RDW 16.3 % (11.6-15.6); WHITE BLOOD COUNT 7.5 K/mm3 (4.0-10.0)
[2022-12-08 09:29] LABS: CALCIUM 7.9 mg/dL (8.5-10.1)
[2022-12-08 09:30] LABS: ALBUMIN 2.2 g/dl (3.4-5.0); MAGNESIUM 1.7 mg/dL (1.8-2.4)
[2022-12-08 09:33] LABS: CREATININE 3.3 mg/dL (0.55-1.3); PHOSPHOROUS 1.4 mg/dL (2.5-4.9)
[2022-12-08 09:34] LABS: BILIRUBIN,TOTAL 0.5 mg/dL (0.2-1)
[2022-12-08] MEDS: ASPIRIN 81 MG CHEWABLE TABLETS PEG SCH (10:06)
[2022-12-08] MEDS: BANATROL PLUS POWDER PACKET PO SCH ×2 (10:06→23:31)
[2022-12-08] MEDS: BACITRACIN ZINC 15 GM TUBE TOPICAL OINTMENT TP SCH ×2 (10:07→23:34)
[2022-12-08] MEDS: DEXAMETHASONE 4 MG TABLET (FP) PO SCH (10:07)
[2022-12-08] MEDS: amLODIPine BESYLATE 10 MG TABLET (FP) PEG SCH (10:08)
[2022-12-08] MEDS: POLYETHYLENE GLYCOL (HEALTHYLAX) 3350 17 GM PACKET PO SCH ×2 (10:08→23:31)
[2022-12-08] MEDS: NYSTATIN 100,000 UNIT/GM TOPICAL CREAM 15 GM TUBE TP SCH ×2 (10:08→23:32)
[2022-12-08] MEDS: LISINOPRIL 20 MG TABLET PO SCH (10:08)
[2022-12-08] MEDS: FAMOTIDINE 40 MG/5 ML ORAL SUSPENSION PEG SCH (10:09)
[2022-12-08] MEDS: FLUoxetine HCL 20 MG/5 ML 120 BOTTLE PEG SCH (10:10)
[2022-12-08] MEDS: Lacosamide 50 MG/5 ML ORAL SOLUTION UNIT CUPS PEG SCH ×2 (10:10→23:30)
[2022-12-08] MEDS ORDERED: INSULIN (NOVOLOG) ASPART 100 UNITS/ML 10ML VIAL ONE ×3 (12:50→22:54)
[2022-12-08] MEDS: COLLAGENASE CLOSTRIDIUM HIST. 30 GRAMS TUBE TP SCH (17:05)
[2022-12-08] MEDS: SILVER SULFADIAZINE 1% TOP CREAM 400 GM JAR TP SCH (17:05)
[2022-12-08] MEDS: ATORVASTATIN CA 80 MG TABLET (FP) PEG SCH (23:31)
[2022-12-09] MEDS: LABETALOL HCL 200 MG TABLET (FP) PEG SCH ×3 (07:19→23:14)
[2022-12-09] MEDS: INSULIN SLIDING SCALE (NOVOLOG) 1 VIAL SQ SCH ×4 (07:19→23:21)
[2022-12-09] MEDS: HEPARIN NA (PORCINE) 5,000 UNITS/ML 1ML VIAL SQ SCH ×3 (07:19→23:11)
[2022-12-09] MEDS: hydrALAZINE HCL 25 MG TABLET (FP) PEG SCH ×3 (07:19→23:14)
[2022-12-09] MEDS: INSULIN (LEVEMIR) 100 UNITS/ML UNITS SQ SCH ×2 (07:20→23:21)
[2022-12-09] MEDS: ALBUTEROL SO4 2.5/IPRATROPIUM 0.5 INH SOL 3 ML VIAL.NEB. NEB SCH ×4 (07:30→20:11)
[2022-12-09] MEDS ORDERED: INSULIN (NOVOLOG) ASPART 100 UNITS/ML 10ML VIAL ONE (12:03)
[2022-12-09] MEDS ORDERED: SODIUM CHLORIDE 250 ML IV PRN (15:09)
[2022-12-09] MEDS ORDERED: EPOETIN ALFA-EPBX 4,000 UNIT/ML VIAL SQ ONE (15:15)
[2022-12-09] MEDS: ASPIRIN 81 MG CHEWABLE TABLETS PEG SCH (18:31)
[2022-12-09] MEDS: SILVER SULFADIAZINE 1% TOP CREAM 400 GM JAR TP SCH (18:32)
[2022-12-09] MEDS: BANATROL PLUS POWDER PACKET PO SCH ×2 (18:32→23:11)
[2022-12-09] MEDS: POLYETHYLENE GLYCOL (HEALTHYLAX) 3350 17 GM PACKET PO SCH ×2 (18:32→23:05)
[2022-12-09] MEDS: NYSTATIN 100,000 UNIT/GM TOPICAL CREAM 15 GM TUBE TP SCH ×2 (18:32→23:22)
[2022-12-09] MEDS: COLLAGENASE CLOSTRIDIUM HIST. 30 GRAMS TUBE TP SCH (18:32)
[2022-12-09] MEDS: BACITRACIN ZINC 15 GM TUBE TOPICAL OINTMENT TP SCH ×2 (18:32→23:23)
[2022-12-09] MEDS: FAMOTIDINE 40 MG/5 ML ORAL SUSPENSION PEG SCH (18:33)
[2022-12-09] MEDS: Lacosamide 50 MG/5 ML ORAL SOLUTION UNIT CUPS PEG SCH ×2 (18:33→23:09)
[2022-12-09] MEDS: LISINOPRIL 20 MG TABLET PO SCH (18:34)
[2022-12-09] MEDS: FLUoxetine HCL 20 MG/5 ML 120 BOTTLE PEG SCH (18:35)
[2022-12-09] MEDS: NIFEdipine E.R 60 MG TABLET PO SCH (18:35)
[2022-12-09] MEDS: ATORVASTATIN CA 80 MG TABLET (FP) PEG SCH (23:10)
[2022-12-10] MEDS: hydrALAZINE HCL 25 MG TABLET (FP) PEG SCH ×3 (06:33→23:55)
[2022-12-10] MEDS: HEPARIN NA (PORCINE) 5,000 UNITS/ML 1ML VIAL SQ SCH ×3 (06:34→23:55)
[2022-12-10] MEDS: LABETALOL HCL 200 MG TABLET (FP) PEG SCH ×3 (06:34→23:55)
[2022-12-10] MEDS: INSULIN (LEVEMIR) 100 UNITS/ML UNITS SQ SCH (06:41)
[2022-12-10] MEDS: INSULIN SLIDING SCALE (NOVOLOG) 1 VIAL SQ SCH ×3 (06:42→17:31)
[2022-12-10] MEDS: ALBUTEROL SO4 2.5/IPRATROPIUM 0.5 INH SOL 3 ML VIAL.NEB. NEB SCH ×4 (07:15→20:07)
[2022-12-10] MEDS: Lacosamide 50 MG/5 ML ORAL SOLUTION UNIT CUPS PEG SCH ×2 (11:15→23:56)
[2022-12-10] MEDS: ASPIRIN 81 MG CHEWABLE TABLETS PEG SCH (11:15)
[2022-12-10] MEDS: NIFEdipine E.R 60 MG TABLET PO SCH (11:15)
[2022-12-10] MEDS: LISINOPRIL 20 MG TABLET PO SCH (11:15)
[2022-12-10] MEDS: FAMOTIDINE 40 MG/5 ML ORAL SUSPENSION PEG SCH (11:16)
[2022-12-10] MEDS: BANATROL PLUS POWDER PACKET PO SCH ×2 (11:17→23:53)
[2022-12-10] MEDS: POLYETHYLENE GLYCOL (HEALTHYLAX) 3350 17 GM PACKET PO SCH ×2 (11:17→23:55)
[2022-12-10] MEDS: NYSTATIN 100,000 UNIT/GM TOPICAL CREAM 15 GM TUBE TP SCH ×2 (11:17→22:54)
[2022-12-10] MEDS: FLUoxetine HCL 20 MG/5 ML 120 BOTTLE PEG SCH (11:17)
[2022-12-10] MEDS: SILVER SULFADIAZINE 1% TOP CREAM 400 GM JAR TP SCH (11:18)
[2022-12-10] MEDS: COLLAGENASE CLOSTRIDIUM HIST. 30 GRAMS TUBE TP SCH (11:18)
[2022-12-10] MEDS: BACITRACIN ZINC 15 GM TUBE TOPICAL OINTMENT TP SCH ×2 (11:22→22:53)
[2022-12-10] MEDS: ATORVASTATIN CA 80 MG TABLET (FP) PEG SCH (23:56)
[2022-12-11] MEDS: INSULIN SLIDING SCALE (NOVOLOG) 1 VIAL SQ SCH ×5 (00:02→22:56)
[2022-12-11] MEDS: INSULIN (LEVEMIR) 100 UNITS/ML UNITS SQ SCH ×3 (00:03→22:58)
[2022-12-11] MEDS: HEPARIN NA (PORCINE) 5,000 UNITS/ML 1ML VIAL SQ SCH ×3 (05:42→22:56)
[2022-12-11] MEDS: hydrALAZINE HCL 25 MG TABLET (FP) PEG SCH ×3 (05:42→22:56)
[2022-12-11] MEDS: LABETALOL HCL 200 MG TABLET (FP) PEG SCH ×3 (05:42→22:56)
[2022-12-11] MEDS: ALBUTEROL SO4 2.5/IPRATROPIUM 0.5 INH SOL 3 ML VIAL.NEB. NEB SCH (07:57)
[2022-12-11] MEDS: SODIUM CHLORIDE 250 ML IV PRN ×2 (09:00→12:00)
[2022-12-11 09:51] LABS: BASO % 0.2 % (0-2.0); HEMATOCRIT 25.2 % (32.4-45.2); HEMOGLOBIN 8.4 GM/dL (10.7-15.3); LYMPH % 7.1 % (8-40); MCH 30.5 pg (25.7-33.7); MCHC 33.3 g/dl (32.0-36.0); MEAN CELL VOLUME 91.6 fl (80-96); MEAN PLT VOLUME 7.7 fl (7.5-11.1); MONO % 7.7 % (3.8-10.2); PLATELET COUNT 156 10^3/uL (134-434); RBC 2.75 M/mm3 (3.60-5.2); RDW 16.9 % (11.6-15.6)
[2022-12-11 10:18] LABS: BLOOD UREA NITROGEN 45.5 mg/dL (7-18); CALCIUM 8.5 mg/dL (8.5-10.1)
[2022-12-11 10:19] LABS: ALBUMIN 2.3 g/dl (3.4-5.0); MAGNESIUM 1.7 mg/dL (1.8-2.4)
[2022-12-11 10:21] LABS: PHOSPHOROUS 2.8 mg/dL (2.5-4.9)
[2022-12-11 10:22] LABS: CREATININE 3.8 mg/dL (0.55-1.3)
[2022-12-11 10:23] LABS: BILIRUBIN,TOTAL 0.4 mg/dL (0.2-1); TOT PROT 4.9 g/dl (6.4-8.2)
[2022-12-11] MEDS ORDERED: EPOETIN ALFA-EPBX 4,000 UNIT/ML VIAL IVPUSH ONE (11:00)
[2022-12-11] MEDS ORDERED: ALBUTEROL SO4 2.5/IPRATROPIUM 0.5 INH SOL 3 ML VIAL.NEB. NEB SCH (12:29)
[2022-12-11] MEDS: LISINOPRIL 20 MG TABLET PO SCH (14:12)
[2022-12-11] MEDS: ASPIRIN 81 MG CHEWABLE TABLETS PEG SCH (14:12)
[2022-12-11] MEDS: Lacosamide 50 MG/5 ML ORAL SOLUTION UNIT CUPS PEG SCH ×2 (14:12→22:56)
[2022-12-11] MEDS: NIFEdipine E.R 60 MG TABLET PO SCH (14:13)
[2022-12-11] MEDS: COLLAGENASE CLOSTRIDIUM HIST. 30 GRAMS TUBE TP SCH (14:15)
[2022-12-11] MEDS: FAMOTIDINE 40 MG/5 ML ORAL SUSPENSION PEG SCH (14:15)
[2022-12-11] MEDS: FLUoxetine HCL 20 MG/5 ML 120 BOTTLE PEG SCH (14:15)
[2022-12-11] MEDS: BANATROL PLUS POWDER PACKET PO SCH ×2 (14:16→22:57)
[2022-12-11] MEDS: POLYETHYLENE GLYCOL (HEALTHYLAX) 3350 17 GM PACKET PO SCH ×2 (14:16→22:57)
[2022-12-11] MEDS: BACITRACIN ZINC 15 GM TUBE TOPICAL OINTMENT TP SCH ×2 (14:16→23:00)
[2022-12-11] MEDS: SILVER SULFADIAZINE 1% TOP CREAM 400 GM JAR TP SCH (14:16)
[2022-12-11] MEDS: NYSTATIN 100,000 UNIT/GM TOPICAL CREAM 15 GM TUBE TP SCH ×2 (14:16→23:01)
[2022-12-11] MEDS: IPRATROPIUM/ALBUTEROL (COMBIVENT) RESPIMAT 20-100 MCG IH SCH ×2 (16:06→22:59)
[2022-12-11] MEDS: ATORVASTATIN CA 80 MG TABLET (FP) PEG SCH (22:56)
[2022-12-12] MEDS: HEPARIN NA (PORCINE) 5,000 UNITS/ML 1ML VIAL SQ SCH ×3 (06:42→23:54)
[2022-12-12] MEDS: hydrALAZINE HCL 25 MG TABLET (FP) PEG SCH ×3 (06:42→23:53)
[2022-12-12] MEDS: LABETALOL HCL 200 MG TABLET (FP) PEG SCH ×3 (06:42→23:53)
[2022-12-12] MEDS: INSULIN (LEVEMIR) 100 UNITS/ML UNITS SQ SCH ×2 (06:43→23:54)
[2022-12-12] MEDS: INSULIN SLIDING SCALE (NOVOLOG) 1 VIAL SQ SCH ×4 (06:43→23:58)
[2022-12-12 09:53] LABS: BASO % 0.3 % (0-2.0); HEMATOCRIT 25.3 % (32.4-45.2); HEMOGLOBIN 8.3 GM/dL (10.7-15.3); LYMPH % 8.9 % (8-40); MCH 30.3 pg (25.7-33.7); MCHC 32.9 g/dl (32.0-36.0); MEAN CELL VOLUME 92.3 fl (80-96); MEAN PLT VOLUME 7.4 fl (7.5-11.1); NEUT % 79.8 % (42.8-82.8); PLATELET COUNT 150 10^3/uL (134-434); RBC 2.74 M/mm3 (3.60-5.2); RDW 16.7 % (11.6-15.6); WHITE BLOOD COUNT 5.3 K/mm3 (4.0-10.0)
[2022-12-12 10:14] LABS: CALCIUM 8.4 mg/dL (8.5-10.1)
[2022-12-12 10:15] LABS: BLOOD UREA NITROGEN 27.9 mg/dL (7-18); MAGNESIUM 1.6 mg/dL (1.8-2.4)
[2022-12-12 10:18] LABS: CREATININE 2.7 mg/dL (0.55-1.3); PHOSPHOROUS 2.5 mg/dL (2.5-4.9)
[2022-12-12] MEDS: AMINO ACIDS/PROTEIN HYDROLYS 30 ML LIQUID.PKT PO SCH (10:27)
[2022-12-12] MEDS: Lacosamide 50 MG/5 ML ORAL SOLUTION UNIT CUPS PEG SCH ×2 (10:28→23:54)
[2022-12-12] MEDS: ASPIRIN 81 MG CHEWABLE TABLETS PEG SCH (10:28)
[2022-12-12] MEDS: LISINOPRIL 20 MG TABLET PO SCH (10:28)
[2022-12-12] MEDS: FAMOTIDINE 40 MG/5 ML ORAL SUSPENSION PEG SCH (10:31)
[2022-12-12] MEDS: NIFEdipine E.R 60 MG TABLET PO SCH (10:31)
[2022-12-12] MEDS: POLYETHYLENE GLYCOL (HEALTHYLAX) 3350 17 GM PACKET PO SCH ×2 (10:31→23:54)
[2022-12-12] MEDS: BANATROL PLUS POWDER PACKET PO SCH ×2 (10:32→23:54)
[2022-12-12] MEDS: NYSTATIN 100,000 UNIT/GM TOPICAL CREAM 15 GM TUBE TP SCH ×2 (10:32→23:57)
[2022-12-12] MEDS: FLUoxetine HCL 20 MG/5 ML 120 BOTTLE PEG SCH (10:33)
[2022-12-12] MEDS: IPRATROPIUM/ALBUTEROL (COMBIVENT) RESPIMAT 20-100 MCG IH SCH ×4 (10:33→23:55)
[2022-12-12] MEDS: COLLAGENASE CLOSTRIDIUM HIST. 30 GRAMS TUBE TP SCH (11:00)
[2022-12-12] MEDS: BACITRACIN ZINC 15 GM TUBE TOPICAL OINTMENT TP SCH ×2 (11:00→23:56)
[2022-12-12] MEDS: SILVER SULFADIAZINE 1% TOP CREAM 400 GM JAR TP SCH (11:00)
[2022-12-12] MEDS: ATORVASTATIN CA 80 MG TABLET (FP) PEG SCH (23:55)
[2022-12-13] MEDS: HEPARIN NA (PORCINE) 5,000 UNITS/ML 1ML VIAL SQ SCH ×3 (06:47→23:14)
[2022-12-13] MEDS: INSULIN (LEVEMIR) 100 UNITS/ML UNITS SQ SCH ×2 (06:47→23:19)
[2022-12-13] MEDS: INSULIN SLIDING SCALE (NOVOLOG) 1 VIAL SQ SCH ×4 (06:47→23:19)
[2022-12-13] MEDS: LABETALOL HCL 200 MG TABLET (FP) PEG SCH ×3 (06:48→23:14)
[2022-12-13] MEDS: hydrALAZINE HCL 25 MG TABLET (FP) PEG SCH ×3 (06:48→23:14)
[2022-12-13] MEDS: ASPIRIN 81 MG CHEWABLE TABLETS PEG SCH (09:22)
[2022-12-13] MEDS: LISINOPRIL 20 MG TABLET PO SCH (09:22)
[2022-12-13] MEDS: NIFEdipine E.R 60 MG TABLET PO SCH (09:23)
[2022-12-13] MEDS: Lacosamide 50 MG/5 ML ORAL SOLUTION UNIT CUPS PEG SCH ×2 (09:23→23:16)
[2022-12-13] MEDS: AMINO ACIDS/PROTEIN HYDROLYS 30 ML LIQUID.PKT PO SCH ×2 (09:23→09:49)
[2022-12-13] MEDS: POLYETHYLENE GLYCOL (HEALTHYLAX) 3350 17 GM PACKET PO SCH ×3 (09:23→23:14)
[2022-12-13] MEDS: BANATROL PLUS POWDER PACKET PO SCH ×3 (09:26→23:14)
[2022-12-13] MEDS: cloNIDine-TTS 0.3 MG /24 HRS PATCH.TDWK TD SCH (09:26)
[2022-12-13] MEDS: COLLAGENASE CLOSTRIDIUM HIST. 30 GRAMS TUBE TP SCH (09:45)
[2022-12-13] MEDS: SILVER SULFADIAZINE 1% TOP CREAM 400 GM JAR TP SCH (09:46)
[2022-12-13] MEDS: BACITRACIN ZINC 15 GM TUBE TOPICAL OINTMENT TP SCH ×2 (09:47→23:17)
[2022-12-13] MEDS: NYSTATIN 100,000 UNIT/GM TOPICAL CREAM 15 GM TUBE TP SCH ×2 (09:48→23:15)
[2022-12-13] MEDS: IPRATROPIUM/ALBUTEROL (COMBIVENT) RESPIMAT 20-100 MCG IH SCH ×4 (12:03→23:15)
[2022-12-13] MEDS: FAMOTIDINE 40 MG/5 ML ORAL SUSPENSION PEG SCH (12:18)
[2022-12-13] MEDS: FLUoxetine HCL 20 MG/5 ML 120 BOTTLE PEG SCH (12:18)
[2022-12-13 17:24] LABS: BASO % 0.7 % (0-2.0); HEMATOCRIT 25.8 % (32.4-45.2); HEMOGLOBIN 8.5 GM/dL (10.7-15.3); LYMPH % 11.2 % (8-40); MCH 30.5 pg (25.7-33.7); MCHC 33.1 g/dl (32.0-36.0); MEAN CELL VOLUME 92.1 fl (80-96); MEAN PLT VOLUME 8.2 fl (7.5-11.1); MONO % 8.8 % (3.8-10.2); NEUT % 79.3 % (42.8-82.8); PLATELET COUNT 216 10^3/uL (134-434); RDW 16.5 % (11.6-15.6); WHITE BLOOD COUNT 4.7 K/mm3 (4.0-10.0)
[2022-12-13] MEDS ORDERED: INSULIN (LEVEMIR) 100 UNITS/ML UNITS SQ ONE (18:46)
[2022-12-13] MEDS ORDERED: INSULIN (NOVOLOG) ASPART 100 UNITS/ML 10ML VIAL ONE (18:46)
[2022-12-13] MEDS: ATORVASTATIN CA 80 MG TABLET (FP) PEG SCH (23:13)
[2022-12-14] MEDS: hydrALAZINE HCL 25 MG TABLET (FP) PEG SCH ×3 (05:49→23:11)
[2022-12-14] MEDS: HEPARIN NA (PORCINE) 5,000 UNITS/ML 1ML VIAL SQ SCH ×3 (05:49→23:11)
[2022-12-14] MEDS: LABETALOL HCL 200 MG TABLET (FP) PEG SCH ×3 (05:49→23:11)
[2022-12-14] MEDS: INSULIN SLIDING SCALE (NOVOLOG) 1 VIAL SQ SCH ×4 (06:03→23:41)
[2022-12-14] MEDS: INSULIN (LEVEMIR) 100 UNITS/ML UNITS SQ SCH ×2 (06:03→23:41)
[2022-12-14] MEDS: FAMOTIDINE 40 MG/5 ML ORAL SUSPENSION PEG SCH (10:17)
[2022-12-14] MEDS: FLUoxetine HCL 20 MG/5 ML 120 BOTTLE PEG SCH (10:17)
[2022-12-14] MEDS: COLLAGENASE CLOSTRIDIUM HIST. 30 GRAMS TUBE TP SCH (10:17)
[2022-12-14] MEDS: Lacosamide 50 MG/5 ML ORAL SOLUTION UNIT CUPS PEG SCH ×2 (10:17→23:10)
[2022-12-14] MEDS: POLYETHYLENE GLYCOL (HEALTHYLAX) 3350 17 GM PACKET PO SCH ×2 (10:18→23:11)
[2022-12-14] MEDS: ASPIRIN 81 MG CHEWABLE TABLETS PEG SCH (10:18)
[2022-12-14] MEDS: NIFEdipine E.R 60 MG TABLET PO SCH (10:18)
[2022-12-14] MEDS: AMINO ACIDS/PROTEIN HYDROLYS 30 ML LIQUID.PKT PO SCH (10:18)
[2022-12-14] MEDS: BANATROL PLUS POWDER PACKET PO SCH ×2 (10:18→23:11)
[2022-12-14] MEDS: LISINOPRIL 20 MG TABLET PO SCH (10:18)
[2022-12-14] MEDS: IPRATROPIUM/ALBUTEROL (COMBIVENT) RESPIMAT 20-100 MCG IH SCH ×4 (10:19→23:12)
[2022-12-14] MEDS: NYSTATIN 100,000 UNIT/GM TOPICAL CREAM 15 GM TUBE TP SCH ×2 (10:21→23:41)
[2022-12-14] MEDS: SILVER SULFADIAZINE 1% TOP CREAM 400 GM JAR TP SCH (10:24)
[2022-12-14] MEDS: BACITRACIN ZINC 15 GM TUBE TOPICAL OINTMENT TP SCH ×2 (10:24→23:12)
[2022-12-14] MEDS ORDERED: SODIUM CHLORIDE 250 ML IV PRN (17:30)
[2022-12-14] MEDS ORDERED: EPOETIN ALFA-EPBX 4,000 UNIT/ML VIAL SQ ONE (18:00)
[2022-12-14] MEDS: ATORVASTATIN CA 80 MG TABLET (FP) PEG SCH (23:10)
[2022-12-15] MEDS: hydrALAZINE HCL 25 MG TABLET (FP) PEG SCH ×3 (05:13→21:20)
[2022-12-15] MEDS: LABETALOL HCL 200 MG TABLET (FP) PEG SCH ×3 (05:13→21:21)
[2022-12-15] MEDS: HEPARIN NA (PORCINE) 5,000 UNITS/ML 1ML VIAL SQ SCH ×3 (05:13→21:21)
[2022-12-15] MEDS: INSULIN (LEVEMIR) 100 UNITS/ML UNITS SQ SCH ×2 (06:08→22:00)
[2022-12-15] MEDS: INSULIN SLIDING SCALE (NOVOLOG) 1 VIAL SQ SCH ×4 (06:08→22:00)
[2022-12-15] MEDS ORDERED: ONDANSETRON 4 MG/2 ML VIAL IVPUSH ONE (07:05)
[2022-12-15] MEDS ORDERED: ALBUTEROL SO4 2.5/IPRATROPIUM 0.5 INH SOL 3 ML VIAL.NEB. NEB ONE (07:07)
[2022-12-15] MEDS: AMINO ACIDS/PROTEIN HYDROLYS 30 ML LIQUID.PKT PO SCH ×2 (08:49→09:52)
[2022-12-15] MEDS: IPRATROPIUM/ALBUTEROL (COMBIVENT) RESPIMAT 20-100 MCG IH SCH ×4 (09:51→21:43)
[2022-12-15] MEDS: LISINOPRIL 20 MG TABLET PO SCH (09:53)
[2022-12-15] MEDS: BANATROL PLUS POWDER PACKET PO SCH ×2 (09:53→21:21)
[2022-12-15] MEDS: POLYETHYLENE GLYCOL (HEALTHYLAX) 3350 17 GM PACKET PO SCH ×2 (09:53→21:21)
[2022-12-15] MEDS: ASPIRIN 81 MG CHEWABLE TABLETS PEG SCH (09:54)
[2022-12-15] MEDS: FAMOTIDINE 40 MG/5 ML ORAL SUSPENSION PEG SCH (09:54)
[2022-12-15] MEDS: NIFEdipine E.R 60 MG TABLET PO SCH (09:54)
[2022-12-15] MEDS: FLUoxetine HCL 20 MG/5 ML 120 BOTTLE PEG SCH (09:55)
[2022-12-15] MEDS: BACITRACIN ZINC 15 GM TUBE TOPICAL OINTMENT TP SCH ×2 (09:56→21:22)
[2022-12-15] MEDS: NYSTATIN 100,000 UNIT/GM TOPICAL CREAM 15 GM TUBE TP SCH ×2 (09:56→21:21)
[2022-12-15] MEDS: Lacosamide 50 MG/5 ML ORAL SOLUTION UNIT CUPS PEG SCH ×2 (09:56→21:22)
[2022-12-15] MEDS ORDERED: INSULIN (NOVOLOG) ASPART 100 UNITS/ML 10ML VIAL ONE (11:46)
[2022-12-15] MEDS: SILVER SULFADIAZINE 1% TOP CREAM 400 GM JAR TP SCH (15:22)
[2022-12-15] MEDS: COLLAGENASE CLOSTRIDIUM HIST. 30 GRAMS TUBE TP SCH (15:22)
[2022-12-15 16:24] LABS: BASO % 1.1 % (0-2.0); HEMATOCRIT 27.6 % (32.4-45.2); LYMPH % 18.5 % (8-40); MCH 30.2 pg (25.7-33.7); MCHC 32.6 g/dl (32.0-36.0); MEAN CELL VOLUME 92.7 fl (80-96); MEAN PLT VOLUME 7.8 fl (7.5-11.1); MONO % 11.9 % (3.8-10.2); NEUT % 68.5 % (42.8-82.8); PLATELET COUNT 183 10^3/uL (134-434); RBC 2.98 M/mm3 (3.60-5.2); RDW 16.3 % (11.6-15.6); WHITE BLOOD COUNT 4.1 K/mm3 (4.0-10.0)
[2022-12-15 16:43] LABS: ALBUMIN 2.7 g/dl (3.4-5.0); CALCIUM 8.7 mg/dL (8.5-10.1); MAGNESIUM 1.8 mg/dL (1.8-2.4)
[2022-12-15 16:44] LABS: BLOOD UREA NITROGEN 35.9 mg/dL (7-18)
[2022-12-15 16:47] LABS: CREATININE 3.4 mg/dL (0.55-1.3); PHOSPHOROUS 3.6 mg/dL (2.5-4.9)
[2022-12-15 16:48] LABS: BILIRUBIN,TOTAL 0.4 mg/dL (0.2-1); TOT PROT 5.8 g/dl (6.4-8.2)
[2022-12-15] MEDS: ATORVASTATIN CA 80 MG TABLET (FP) PEG SCH (21:21)
[2022-12-16] MEDS: hydrALAZINE HCL 25 MG TABLET (FP) PEG SCH ×3 (05:12→22:38)
[2022-12-16] MEDS: LABETALOL HCL 200 MG TABLET (FP) PEG SCH ×3 (05:12→22:37)
[2022-12-16] MEDS: HEPARIN NA (PORCINE) 5,000 UNITS/ML 1ML VIAL SQ SCH ×3 (05:12→22:37)
[2022-12-16] MEDS: INSULIN SLIDING SCALE (NOVOLOG) 1 VIAL SQ SCH ×4 (06:22→22:38)
[2022-12-16] MEDS: INSULIN (LEVEMIR) 100 UNITS/ML UNITS SQ SCH ×2 (06:22→22:39)
[2022-12-16 09:40] LABS: BASO % 0.6 % (0-2.0); HEMOGLOBIN 7.9 GM/dL (10.7-15.3); LYMPH % 8.1 % (8-40); MCH 30.5 pg (25.7-33.7); MCHC 32.9 g/dl (32.0-36.0); MEAN CELL VOLUME 92.8 fl (80-96); MEAN PLT VOLUME 7.6 fl (7.5-11.1); MONO % 9.2 % (3.8-10.2); NEUT % 82.1 % (42.8-82.8); PLATELET COUNT 162 10^3/uL (134-434); RBC 2.58 M/mm3 (3.60-5.2); RDW 16.1 % (11.6-15.6); WHITE BLOOD COUNT 4.7 K/mm3 (4.0-10.0)
[2022-12-16] MEDS: IPRATROPIUM/ALBUTEROL (COMBIVENT) RESPIMAT 20-100 MCG IH SCH ×4 (10:12→22:39)
[2022-12-16] MEDS: AMINO ACIDS/PROTEIN HYDROLYS 30 ML LIQUID.PKT PO SCH (10:12)
[2022-12-16] MEDS: LISINOPRIL 20 MG TABLET PO SCH (10:12)
[2022-12-16] MEDS: ASPIRIN 81 MG CHEWABLE TABLETS PEG SCH (10:12)
[2022-12-16] MEDS: NIFEdipine E.R 60 MG TABLET PO SCH (10:12)
[2022-12-16] MEDS: FAMOTIDINE 40 MG/5 ML ORAL SUSPENSION PEG SCH (10:13)
[2022-12-16] MEDS: NYSTATIN 100,000 UNIT/GM TOPICAL CREAM 15 GM TUBE TP SCH ×2 (10:14→22:39)
[2022-12-16] MEDS: FLUoxetine HCL 20 MG/5 ML 120 BOTTLE PEG SCH (10:14)
[2022-12-16] MEDS: Lacosamide 50 MG/5 ML ORAL SOLUTION UNIT CUPS PEG SCH ×2 (10:14→22:37)
[2022-12-16] MEDS: POLYETHYLENE GLYCOL (HEALTHYLAX) 3350 17 GM PACKET PO SCH ×2 (10:25→22:38)
[2022-12-16] MEDS: BANATROL PLUS POWDER PACKET PO SCH ×2 (10:25→22:38)
[2022-12-16 10:27] LABS: ALBUMIN 2.4 g/dl (3.4-5.0); BLOOD UREA NITROGEN 41.2 mg/dL (7-18); CALCIUM 8.9 mg/dL (8.5-10.1); MAGNESIUM 1.8 mg/dL (1.8-2.4)
[2022-12-16 10:30] LABS: PHOSPHOROUS 4.5 mg/dL (2.5-4.9)
[2022-12-16 10:31] LABS: CREATININE 3.8 mg/dL (0.55-1.3)
[2022-12-16 10:32] LABS: TOT PROT 5.5 g/dl (6.4-8.2)
[2022-12-16 10:36] LABS: BILIRUBIN,TOTAL 0.6 mg/dL (0.2-1)
[2022-12-16] MEDS ORDERED: SODIUM CHLORIDE 250 ML IV PRN (11:05)
[2022-12-16] MEDS: COLLAGENASE CLOSTRIDIUM HIST. 30 GRAMS TUBE TP SCH (12:11)
[2022-12-16] MEDS: BACITRACIN ZINC 15 GM TUBE TOPICAL OINTMENT TP SCH ×2 (12:11→22:40)
[2022-12-16] MEDS: SILVER SULFADIAZINE 1% TOP CREAM 400 GM JAR TP SCH (12:12)
[2022-12-16] MEDS ORDERED: EPOETIN ALFA-EPBX 10,000 UNIT/ML VIAL IVPUSH ONE (15:00)
[2022-12-16] MEDS: ATORVASTATIN CA 80 MG TABLET (FP) PEG SCH (22:38)
[2022-12-17] MEDS ORDERED: ALBUTEROL SO4 2.5/IPRATROPIUM 0.5 INH SOL 3 ML VIAL.NEB. NEB ONE (03:05)
[2022-12-17] MEDS ORDERED: methylPREDNISolone NA SUCC 40 MG/1 ML VIAL IVPUSH ONE (03:27)
[2022-12-17 05:12] LABS: ARTERIAL BLD GAS O2 SATURATION 97.2 % (95-98); ARTERIAL BLOOD GAS PO2 95.3 mmHg (80-100); ARTERIAL BLOOD GAS pH 7.405 (7.350-7.450)
[2022-12-17 05:44] LABS: ALLENS TEST POSITIVE
[2022-12-17] MEDS: LABETALOL HCL 200 MG TABLET (FP) PEG SCH ×3 (05:56→21:31)
[2022-12-17] MEDS: hydrALAZINE HCL 25 MG TABLET (FP) PEG SCH ×3 (05:56→21:31)
[2022-12-17] MEDS: HEPARIN NA (PORCINE) 5,000 UNITS/ML 1ML VIAL SQ SCH ×3 (05:57→21:31)
[2022-12-17] MEDS: INSULIN SLIDING SCALE (NOVOLOG) 1 VIAL SQ SCH ×4 (06:03→21:33)
[2022-12-17] MEDS: INSULIN (LEVEMIR) 100 UNITS/ML UNITS SQ SCH ×2 (06:03→21:32)
[2022-12-17] MEDS ORDERED: SODIUM CHLORIDE 250 ML IV PRN ×2 (10:40→22:49)
[2022-12-17] MEDS: AMINO ACIDS/PROTEIN HYDROLYS 30 ML LIQUID.PKT PO SCH (10:44)
[2022-12-17] MEDS: ASPIRIN 81 MG CHEWABLE TABLETS PEG SCH (11:28)
[2022-12-17] MEDS: BANATROL PLUS POWDER PACKET PO SCH (11:29)
[2022-12-17] MEDS: POLYETHYLENE GLYCOL (HEALTHYLAX) 3350 17 GM PACKET PO SCH ×2 (11:29→21:32)
[2022-12-17] MEDS: FAMOTIDINE 40 MG/5 ML ORAL SUSPENSION PEG SCH (11:32)
[2022-12-17] MEDS: Lacosamide 50 MG/5 ML ORAL SOLUTION UNIT CUPS PEG SCH ×2 (11:33→21:31)
[2022-12-17] MEDS: LISINOPRIL 20 MG TABLET PO SCH (11:34)
[2022-12-17] MEDS: FLUoxetine HCL 20 MG/5 ML 120 BOTTLE PEG SCH (11:34)
[2022-12-17] MEDS: NIFEdipine E.R 60 MG TABLET PO SCH (11:34)
[2022-12-17] MEDS ORDERED: AMINO ACIDS 4.25%/D5W 1,000 ML IV SCH (12:00)
[2022-12-17] MEDS: IPRATROPIUM/ALBUTEROL (COMBIVENT) RESPIMAT 20-100 MCG IH SCH ×4 (12:37→21:32)
[2022-12-17] MEDS: SILVER SULFADIAZINE 1% TOP CREAM 400 GM JAR TP SCH (18:30)
[2022-12-17] MEDS: COLLAGENASE CLOSTRIDIUM HIST. 30 GRAMS TUBE TP SCH (18:30)
[2022-12-17] MEDS: NYSTATIN 100,000 UNIT/GM TOPICAL CREAM 15 GM TUBE TP SCH ×2 (18:30→21:33)
[2022-12-17] MEDS: BACITRACIN ZINC 15 GM TUBE TOPICAL OINTMENT TP SCH ×2 (18:30→21:32)
[2022-12-17] MEDS: ATORVASTATIN CA 80 MG TABLET (FP) PEG SCH (21:32)
[2022-12-17] MEDS ORDERED: MAGNESIUM HYDROX 2400MG/30ML ORAL SUSPENSION 30 ML CUP PEG PRN (22:49)
[2022-12-17] MEDS ORDERED: TRIMETHOBENZAMIDE HCL 200MG/2ML INJ IM PRN (22:49)
[2022-12-17] MEDS ORDERED: ACETAMINOPHEN 650 MG/20.3 ML ORAL SOLUTION (CUPS) PEG PRN (22:49)
[2022-12-18] MEDS: HEPARIN NA (PORCINE) 5,000 UNITS/ML 1ML VIAL SQ SCH ×3 (05:33→23:17)
[2022-12-18] MEDS: LABETALOL HCL 200 MG TABLET (FP) PEG SCH ×3 (05:33→23:15)
[2022-12-18] MEDS: hydrALAZINE HCL 25 MG TABLET (FP) PEG SCH ×3 (05:33→23:16)
[2022-12-18] MEDS ORDERED: ALBUTEROL SO4 2.5/IPRATROPIUM 0.5 INH SOL 3 ML VIAL.NEB. NEB ONE (06:03)
[2022-12-18] MEDS: INSULIN SLIDING SCALE (NOVOLOG) 1 VIAL SQ SCH ×4 (06:18→23:18)
[2022-12-18] MEDS: INSULIN (LEVEMIR) 100 UNITS/ML UNITS SQ SCH ×2 (06:18→23:17)
[2022-12-18] MEDS: AMINO ACIDS/PROTEIN HYDROLYS 30 ML LIQUID.PKT GT SCH ×2 (08:33→09:52)
[2022-12-18] MEDS: LISINOPRIL 20 MG TABLET PO SCH (09:18)
[2022-12-18] MEDS: ASPIRIN 81 MG CHEWABLE TABLETS PEG SCH (09:18)
[2022-12-18] MEDS: Lacosamide 50 MG/5 ML ORAL SOLUTION UNIT CUPS PEG SCH ×2 (09:18→23:18)
[2022-12-18] MEDS: NIFEdipine E.R 60 MG TABLET PO SCH (09:18)
[2022-12-18] MEDS: POLYETHYLENE GLYCOL (HEALTHYLAX) 3350 17 GM PACKET PO SCH ×3 (09:19→23:16)
[2022-12-18] MEDS: BACITRACIN ZINC 15 GM TUBE TOPICAL OINTMENT TP SCH ×2 (09:19→23:16)
[2022-12-18] MEDS ORDERED: BUDESONIDE/FORMETEROL FUMARATE 160/4.5 mcg INHALER IH SCH (10:00)
[2022-12-18] MEDS: COLLAGENASE CLOSTRIDIUM HIST. 30 GRAMS TUBE TP SCH (10:59)
[2022-12-18] MEDS: NYSTATIN 100,000 UNIT/GM TOPICAL CREAM 15 GM TUBE TP SCH ×2 (10:59→23:17)
[2022-12-18] MEDS: FAMOTIDINE 40 MG/5 ML ORAL SUSPENSION PEG SCH (11:00)
[2022-12-18] MEDS: FLUoxetine HCL 20 MG/5 ML 120 BOTTLE PEG SCH (11:01)
[2022-12-18] MEDS: SILVER SULFADIAZINE 1% TOP CREAM 400 GM JAR TP SCH (11:01)
[2022-12-18] MEDS: BUDESONIDE/FORMETEROL FUMARATE 160/4.5 mcg INHALER IH SCH ×2 (11:02→23:18)
[2022-12-18] MEDS: IPRATROPIUM/ALBUTEROL (COMBIVENT) RESPIMAT 20-100 MCG IH SCH ×4 (13:24→22:15)
[2022-12-18] MEDS ORDERED: ATORVASTATIN CA 80 MG TABLET (FP) PEG SCH (22:00)
[2022-12-18] MEDS ORDERED: ALBUTEROL SO4 0.083% IH SOL 2.5 MG/3 ML VIAL.NEB. NEB ONE ×2 (22:36→23:13)
[2022-12-19] MEDS ORDERED: ALBUTEROL SO4 0.083% IH SOL 2.5 MG/3 ML VIAL.NEB. NEB ONE (06:02)
[2022-12-19] MEDS: HEPARIN NA (PORCINE) 5,000 UNITS/ML 1ML VIAL SQ SCH ×2 (06:06→15:04)
[2022-12-19] MEDS: hydrALAZINE HCL 25 MG TABLET (FP) PEG SCH ×2 (06:06→15:02)
[2022-12-19] MEDS: INSULIN (LEVEMIR) 100 UNITS/ML UNITS SQ SCH (06:06)
[2022-12-19] MEDS: LABETALOL HCL 200 MG TABLET (FP) PEG SCH ×2 (06:06→15:02)
[2022-12-19] MEDS: INSULIN SLIDING SCALE (NOVOLOG) 1 VIAL SQ SCH ×3 (06:07→16:33)
[2022-12-19] MEDS: Lacosamide 50 MG/5 ML ORAL SOLUTION UNIT CUPS PEG SCH (09:08)
[2022-12-19] MEDS: AMINO ACIDS/PROTEIN HYDROLYS 30 ML LIQUID.PKT GT SCH (09:08)
[2022-12-19] MEDS: LISINOPRIL 20 MG TABLET PO SCH (09:09)
[2022-12-19] MEDS: BACITRACIN ZINC 15 GM TUBE TOPICAL OINTMENT TP SCH (09:09)
[2022-12-19] MEDS: ASPIRIN 81 MG CHEWABLE TABLETS PEG SCH (09:09)
[2022-12-19] MEDS: POLYETHYLENE GLYCOL (HEALTHYLAX) 3350 17 GM PACKET PO SCH (09:10)
[2022-12-19] MEDS: NYSTATIN 100,000 UNIT/GM TOPICAL CREAM 15 GM TUBE TP SCH (09:10)
[2022-12-19] MEDS: NIFEdipine E.R 60 MG TABLET PO SCH (09:11)
[2022-12-19] MEDS: BUDESONIDE/FORMETEROL FUMARATE 160/4.5 mcg INHALER IH SCH (09:12)
[2022-12-19] MEDS: SILVER SULFADIAZINE 1% TOP CREAM 400 GM JAR TP SCH (09:12)
[2022-12-19] MEDS: COLLAGENASE CLOSTRIDIUM HIST. 30 GRAMS TUBE TP SCH (09:12)
[2022-12-19] MEDS: FAMOTIDINE 40 MG/5 ML ORAL SUSPENSION PEG SCH (09:48)
[2022-12-19] MEDS: FLUoxetine HCL 20 MG/5 ML 120 BOTTLE PEG SCH (09:48)
[2022-12-19 15:37] LABS: BASO % 0.9 % (0-2.0); EOS % 0.4 % (0-4.5); HEMATOCRIT 24.6 % (32.4-45.2); HEMOGLOBIN 8.1 GM/dL (10.7-15.3); LYMPH % 7.7 % (8-40); MCH 30.4 pg (25.7-33.7); MCHC 32.8 g/dl (32.0-36.0); MEAN CELL VOLUME 92.7 fl (80-96); MEAN PLT VOLUME 7.5 fl (7.5-11.1); MONO % 6.1 % (3.8-10.2); NEUT % 84.9 % (42.8-82.8); PLATELET COUNT 205 10^3/uL (134-434); RBC 2.65 M/mm3 (3.60-5.2); WHITE BLOOD COUNT 4.1 K/mm3 (4.0-10.0)
[2022-12-19 15:55] LABS: ALBUMIN 2.6 g/dl (3.4-5.0); BLOOD UREA NITROGEN 24.1 mg/dL (7-18)
[2022-12-19 15:58] LABS: CREATININE 2.6 mg/dL (0.55-1.3)
[2022-12-19 16:00] LABS: BILIRUBIN,TOTAL 0.4 mg/dL (0.2-1); TOT PROT 5.5 g/dl (6.4-8.2)
[2022-12-19] MEDS ORDERED: methylPREDNISolone NA SUCC 40 MG/1 ML VIAL IVPUSH SCH (18:00)
[2022-12-19] MEDS: IPRATROPIUM/ALBUTEROL (COMBIVENT) RESPIMAT 20-100 MCG IH SCH (19:09)
[2022-12-19] MEDS ORDERED: TRIMETHOBENZAMIDE HCL 200MG/2ML INJ IM PRN ×2 (20:44→23:43)
[2022-12-19] MEDS ORDERED: MAGNESIUM HYDROX 2400MG/30ML ORAL SUSPENSION 30 ML CUP PEG PRN ×2 (20:44→23:43)
[2022-12-19] MEDS ORDERED: SODIUM CHLORIDE 250 ML IV PRN (20:44)
[2022-12-19] MEDS ORDERED: ACETAMINOPHEN 650 MG/20.3 ML ORAL SOLUTION (CUPS) PEG PRN ×2 (20:44→23:43)
[2022-12-19] MEDS ORDERED: hydrALAZINE HCL 25 MG TABLET (FP) PEG SCH (22:00)
[2022-12-19] MEDS ORDERED: INSULIN (LEVEMIR) 100 UNITS/ML UNITS SQ SCH (22:00)
[2022-12-19] MEDS ORDERED: ATORVASTATIN CA 80 MG TABLET (FP) PEG SCH (22:00)
[2022-12-19] MEDS ORDERED: MUPIROCIN 2% TOPICAL OINTMENT FOR DECOLONIZATION NS SCH (22:00)
[2022-12-19] MEDS ORDERED: HEPARIN NA (PORCINE) 5,000 UNITS/ML 1ML VIAL SQ SCH (22:00)
[2022-12-19] MEDS ORDERED: POLYETHYLENE GLYCOL (HEALTHYLAX) 3350 17 GM PACKET PO SCH (22:00)
[2022-12-19] MEDS ORDERED: BACITRACIN ZINC 15 GM TUBE TOPICAL OINTMENT TP SCH (22:00)
[2022-12-19] MEDS ORDERED: BUDESONIDE/FORMETEROL FUMARATE 160/4.5 mcg INHALER IH SCH (22:00)
[2022-12-19] MEDS ORDERED: LABETALOL HCL 200 MG TABLET (FP) PEG SCH (22:00)
[2022-12-19] MEDS ORDERED: INSULIN SLIDING SCALE (NOVOLOG) 1 VIAL SQ SCH (22:00)
[2022-12-19] MEDS ORDERED: CHLORHEXIDINE GLUCONATE 4% CLEANSER FOR DECOLONIZATION TP SCH (22:00)
[2022-12-19] MEDS ORDERED: NYSTATIN 100,000 UNIT/GM TOPICAL CREAM 15 GM TUBE TP SCH (22:00)
[2022-12-19] MEDS ORDERED: Lacosamide 50 MG/5 ML ORAL SOLUTION UNIT CUPS PEG SCH (22:00)
[2022-12-20] MEDS: methylPREDNISolone NA SUCC 40 MG/1 ML VIAL IVPUSH SCH ×3 (01:25→18:13)
[2022-12-20] MEDS: LABETALOL HCL 200 MG TABLET (FP) PEG SCH ×3 (05:13→21:35)
[2022-12-20] MEDS: HEPARIN NA (PORCINE) 5,000 UNITS/ML 1ML VIAL SQ SCH ×3 (05:19→21:33)
[2022-12-20] MEDS ORDERED: hydrALAZINE HCL 25 MG TABLET (FP) PEG SCH (06:00)
[2022-12-20] MEDS: INSULIN (LEVEMIR) 100 UNITS/ML UNITS SQ SCH ×3 (06:28→21:54)
[2022-12-20] MEDS: INSULIN SLIDING SCALE (NOVOLOG) 1 VIAL SQ SCH ×4 (06:28→21:52)
[2022-12-20] MEDS ORDERED: AMINO ACIDS/PROTEIN HYDROLYS 30 ML LIQUID.PKT GT SCH (08:00)
[2022-12-20] MEDS ORDERED: IPRATROPIUM/ALBUTEROL (COMBIVENT) RESPIMAT 20-100 MCG IH SCH (08:00)
[2022-12-20 08:35] LABS: ALBUMIN 2.8 g/dl (3.4-5.0); BILIRUBIN,TOTAL 0.5 mg/dL (0.2-1); BLOOD UREA NITROGEN 13.5 mg/dL (7-18); CALCIUM 9.2 mg/dL (8.5-10.1); CREATININE 1.9 mg/dL (0.55-1.3); TOT PROT 6.1 g/dl (6.4-8.2)
[2022-12-20 08:51] LABS: HEMATOCRIT 27.9 % (32.4-45.2); HEMOGLOBIN 9.1 GM/dL (10.7-15.3); MCH 30.2 pg (25.7-33.7); MCHC 32.6 g/dl (32.0-36.0); MEAN CELL VOLUME 92.5 fl (80-96); MEAN PLT VOLUME 7.8 fl (7.5-11.1); PLATELET COUNT 232 10^3/uL (134-434); RBC 3.02 M/mm3 (3.60-5.2); RDW 16.1 % (11.6-15.6); WHITE BLOOD COUNT 3.8 K/mm3 (4.0-10.0)
[2022-12-20] MEDS ORDERED: FAMOTIDINE 40 MG/5 ML ORAL SUSPENSION PEG SCH (10:00)
[2022-12-20] MEDS ORDERED: LISINOPRIL 20 MG TABLET PO SCH (10:00)
[2022-12-20] MEDS ORDERED: ASPIRIN 81 MG CHEWABLE TABLETS PEG SCH ×2 (10:00)
[2022-12-20] MEDS ORDERED: SILVER SULFADIAZINE 1% TOP CREAM 400 GM JAR TP SCH (10:00)
[2022-12-20] MEDS ORDERED: NIFEdipine E.R 60 MG TABLET PO SCH (10:00)
[2022-12-20] MEDS ORDERED: cloNIDine-TTS 0.3 MG /24 HRS PATCH.TDWK TD SCH ×3 (10:00)
[2022-12-20] MEDS ORDERED: COLLAGENASE CLOSTRIDIUM HIST. 30 GRAMS TUBE TP SCH (10:00)
[2022-12-20] MEDS ORDERED: FLUoxetine HCL 20 MG/5 ML 120 BOTTLE PEG SCH (10:00)
[2022-12-20] MEDS: AMINO ACIDS/PROTEIN HYDROLYS 30 ML LIQUID.PKT GT SCH (10:01)
[2022-12-20] MEDS: LISINOPRIL 20 MG TABLET PO SCH (10:02)
[2022-12-20] MEDS: NIFEdipine E.R 60 MG TABLET PO SCH (10:02)
[2022-12-20] MEDS: BACITRACIN ZINC 15 GM TUBE TOPICAL OINTMENT TP SCH ×2 (10:08→21:36)
[2022-12-20] MEDS: IPRATROPIUM/ALBUTEROL (COMBIVENT) RESPIMAT 20-100 MCG IH SCH ×4 (10:08→21:36)
[2022-12-20] MEDS: MUPIROCIN 2% TOPICAL OINTMENT FOR DECOLONIZATION NS SCH ×2 (10:08→21:34)
[2022-12-20] MEDS: FAMOTIDINE 40 MG/5 ML ORAL SUSPENSION PEG SCH (10:09)
[2022-12-20] MEDS: NYSTATIN 100,000 UNIT/GM TOPICAL CREAM 15 GM TUBE TP SCH ×2 (10:09→21:36)
[2022-12-20] MEDS: SILVER SULFADIAZINE 1% TOP CREAM 400 GM JAR TP SCH (10:11)
[2022-12-20] MEDS: BUDESONIDE/FORMETEROL FUMARATE 160/4.5 mcg INHALER IH SCH ×2 (10:11→21:34)
[2022-12-20] MEDS: FLUoxetine HCL 20 MG/5 ML 120 BOTTLE PEG SCH (10:12)
[2022-12-20] MEDS: COLLAGENASE CLOSTRIDIUM HIST. 30 GRAMS TUBE TP SCH (10:12)
[2022-12-20] MEDS: Lacosamide 50 MG/5 ML ORAL SOLUTION UNIT CUPS PEG SCH ×2 (10:12→21:34)
[2022-12-20 10:56] LABS: ANISOCYTOSIS 0; HELMET CELLS 0; HOWELL-JOLLY BODIES 0; MACROCYTOSIS 0; OVALOCYTE 0; ROULEAU 0; SICKELED CELLS 0; TARGET CELLS 0; TEAR DROP CELLS 0; TOXIC GRANULATION 0
[2022-12-20] MEDS ORDERED: MAGNESIUM HYDROX 2400MG/30ML ORAL SUSPENSION 30 ML CUP PEG PRN (12:34)
[2022-12-20] MEDS: POLYETHYLENE GLYCOL (HEALTHYLAX) 3350 17 GM PACKET PO SCH ×2 (13:03→21:34)
[2022-12-20] MEDS: hydrALAZINE HCL 50 MG TABLET (FP) PEG SCH ×2 (13:48→21:35)
[2022-12-20] MEDS: ATORVASTATIN CA 80 MG TABLET (FP) PEG SCH (21:35)
[2022-12-20] MEDS: CHLORHEXIDINE GLUCONATE 4% CLEANSER FOR DECOLONIZATION TP SCH (21:36)
[2022-12-21] MEDS: methylPREDNISolone NA SUCC 40 MG/1 ML VIAL IVPUSH SCH ×3 (01:09→18:29)
[2022-12-21] MEDS: hydrALAZINE HCL 50 MG TABLET (FP) PEG SCH ×3 (05:25→22:08)
[2022-12-21] MEDS: LABETALOL HCL 200 MG TABLET (FP) PEG SCH ×3 (05:25→22:11)
[2022-12-21] MEDS: HEPARIN NA (PORCINE) 5,000 UNITS/ML 1ML VIAL SQ SCH ×3 (05:25→22:09)
[2022-12-21] MEDS: INSULIN (LEVEMIR) 100 UNITS/ML UNITS SQ SCH ×2 (06:27→22:10)
[2022-12-21] MEDS: INSULIN SLIDING SCALE (NOVOLOG) 1 VIAL SQ SCH ×4 (06:27→22:11)
[2022-12-21] MEDS: BACITRACIN ZINC 15 GM TUBE TOPICAL OINTMENT TP SCH ×2 (11:04→22:08)
[2022-12-21] MEDS: AMINO ACIDS/PROTEIN HYDROLYS 30 ML LIQUID.PKT GT SCH (11:04)
[2022-12-21] MEDS: MUPIROCIN 2% TOPICAL OINTMENT FOR DECOLONIZATION NS SCH ×2 (11:04→22:08)
[2022-12-21] MEDS: IPRATROPIUM/ALBUTEROL (COMBIVENT) RESPIMAT 20-100 MCG IH SCH ×5 (11:04→22:40)
[2022-12-21] MEDS: FLUoxetine HCL 20 MG/5 ML 120 BOTTLE PEG SCH (11:05)
[2022-12-21] MEDS: LISINOPRIL 20 MG TABLET PO SCH (11:05)
[2022-12-21] MEDS: POLYETHYLENE GLYCOL (HEALTHYLAX) 3350 17 GM PACKET PO SCH ×2 (11:05→22:09)
[2022-12-21] MEDS: NIFEdipine E.R 60 MG TABLET PO SCH (11:05)
[2022-12-21] MEDS: COLLAGENASE CLOSTRIDIUM HIST. 30 GRAMS TUBE TP SCH (11:05)
[2022-12-21] MEDS: FAMOTIDINE 40 MG/5 ML ORAL SUSPENSION PEG SCH (11:05)
[2022-12-21] MEDS: SILVER SULFADIAZINE 1% TOP CREAM 400 GM JAR TP SCH (11:05)
[2022-12-21] MEDS: BUDESONIDE/FORMETEROL FUMARATE 160/4.5 mcg INHALER IH SCH ×2 (11:06→22:12)
[2022-12-21] MEDS: Lacosamide 50 MG/5 ML ORAL SOLUTION UNIT CUPS PEG SCH ×2 (11:06→22:12)
[2022-12-21] MEDS: NYSTATIN 100,000 UNIT/GM TOPICAL CREAM 15 GM TUBE TP SCH ×2 (11:21→22:11)
[2022-12-21] MEDS ORDERED: SODIUM CHLORIDE 250 ML IV PRN (12:08)
[2022-12-21] MEDS ORDERED: EPOETIN ALFA-EPBX 4,000 UNIT/ML VIAL IVPUSH ONE (12:45)
[2022-12-21] MEDS: CHLORHEXIDINE GLUCONATE 4% CLEANSER FOR DECOLONIZATION TP SCH (22:10)
[2022-12-21] MEDS: ATORVASTATIN CA 80 MG TABLET (FP) PEG SCH (22:11)
[2022-12-22] MEDS: methylPREDNISolone NA SUCC 40 MG/1 ML VIAL IVPUSH SCH ×2 (01:18→09:20)
[2022-12-22] MEDS ORDERED: hydrALAZINE HCL 20 MG/ML VIAL IVPUSH ONE (01:51)
[2022-12-22] MEDS ORDERED: LISINOPRIL 20 MG TABLET PO SCH (02:46)
[2022-12-22] MEDS ORDERED: LISINOPRIL 20 MG TABLET GT ONE (02:52)
[2022-12-22] MEDS: NICARDIPINE 25 MG in DEXTROSE 5%-WATER - 240 ML IVPB SCH ×2 (03:35→06:45)
[2022-12-22] MEDS: hydrALAZINE HCL 50 MG TABLET (FP) PEG SCH ×3 (05:15→21:21)
[2022-12-22] MEDS: LABETALOL HCL 200 MG TABLET (FP) PEG SCH ×3 (05:15→21:21)
[2022-12-22] MEDS: HEPARIN NA (PORCINE) 5,000 UNITS/ML 1ML VIAL SQ SCH ×3 (05:15→21:20)
[2022-12-22] MEDS: INSULIN SLIDING SCALE (NOVOLOG) 1 VIAL SQ SCH ×4 (06:50→21:28)
[2022-12-22] MEDS: INSULIN (LEVEMIR) 100 UNITS/ML UNITS SQ SCH ×2 (07:03→21:29)
[2022-12-22 07:22] LABS: HEMATOCRIT 30.2 % (32.4-45.2); HEMOGLOBIN 9.9 GM/dL (10.7-15.3); MCH 30.3 pg (25.7-33.7); MCHC 32.8 g/dl (32.0-36.0); MEAN CELL VOLUME 92.3 fl (80-96); MEAN PLT VOLUME 7.6 fl (7.5-11.1); PLATELET COUNT 262 10^3/uL (134-434); RBC 3.27 M/mm3 (3.60-5.2); RDW 15.5 % (11.6-15.6); WHITE BLOOD COUNT 3.6 K/mm3 (4.0-10.0)
[2022-12-22 07:51] LABS: CALCIUM 9.5 mg/dL (8.5-10.1)
[2022-12-22 09:15] LABS: ANISOCYTOSIS 1+; MACROCYTOSIS 0
[2022-12-22] MEDS: AMINO ACIDS/PROTEIN HYDROLYS 30 ML LIQUID.PKT GT SCH ×2 (09:19→17:07)
[2022-12-22] MEDS: LISINOPRIL 20 MG TABLET PO SCH (09:20)
[2022-12-22] MEDS: NIFEdipine E.R 60 MG TABLET PO SCH (09:20)
[2022-12-22] MEDS: BACITRACIN ZINC 15 GM TUBE TOPICAL OINTMENT TP SCH ×2 (09:20→21:22)
[2022-12-22] MEDS: POLYETHYLENE GLYCOL (HEALTHYLAX) 3350 17 GM PACKET PO SCH ×2 (09:20→21:20)
[2022-12-22] MEDS: COLLAGENASE CLOSTRIDIUM HIST. 30 GRAMS TUBE TP SCH (09:21)
[2022-12-22] MEDS: IPRATROPIUM/ALBUTEROL (COMBIVENT) RESPIMAT 20-100 MCG IH SCH ×4 (09:21→21:23)
[2022-12-22] MEDS: MUPIROCIN 2% TOPICAL OINTMENT FOR DECOLONIZATION NS SCH ×2 (09:21→21:23)
[2022-12-22] MEDS: NYSTATIN 100,000 UNIT/GM TOPICAL CREAM 15 GM TUBE TP SCH ×2 (09:21→21:22)
[2022-12-22] MEDS: SILVER SULFADIAZINE 1% TOP CREAM 400 GM JAR TP SCH (09:22)
[2022-12-22] MEDS: Lacosamide 50 MG/5 ML ORAL SOLUTION UNIT CUPS PEG SCH ×2 (09:22→21:24)
[2022-12-22] MEDS: BUDESONIDE/FORMETEROL FUMARATE 160/4.5 mcg INHALER IH SCH ×2 (09:22→21:24)
[2022-12-22] MEDS: FAMOTIDINE 40 MG/5 ML ORAL SUSPENSION PEG SCH (09:47)
[2022-12-22] MEDS: FLUoxetine HCL 20 MG/5 ML 120 BOTTLE PEG SCH (09:47)
[2022-12-22] MEDS ORDERED: AMINO ACIDS 4.25%/D5W 1,000 ML IV SCH (11:45)
[2022-12-22] MEDS ORDERED: MULTIVIT INJECTION ADULT 10 ML in AMINO ACIDS 4.25%/D5W 1,000 ML IV SCH (12:15)
[2022-12-22] MEDS: ATORVASTATIN CA 80 MG TABLET (FP) PEG SCH (21:21)
[2022-12-22] MEDS: CHLORHEXIDINE GLUCONATE 4% CLEANSER FOR DECOLONIZATION TP SCH (21:21)
[2022-12-22] MEDS ORDERED: FAT EMUL/SOY/MCT/OLIV/FISH OIL 250 ML IV SCH (22:00)
[2022-12-22] MEDS ORDERED: SMOFLIPID - FAT EMUL/SOY/MCT/OLIV/FISH OIL 250 ML EMULSION IV SCH (22:00)
[2022-12-23] MEDS: LABETALOL HCL 200 MG TABLET (FP) PEG SCH ×3 (06:15→21:39)
[2022-12-23] MEDS: hydrALAZINE HCL 50 MG TABLET (FP) PEG SCH ×3 (06:16→21:38)
[2022-12-23] MEDS: HEPARIN NA (PORCINE) 5,000 UNITS/ML 1ML VIAL SQ SCH ×3 (06:16→21:39)
[2022-12-23] MEDS: INSULIN (LEVEMIR) 100 UNITS/ML UNITS SQ SCH ×2 (06:34→22:29)
[2022-12-23] MEDS: INSULIN SLIDING SCALE (NOVOLOG) 1 VIAL SQ SCH ×4 (06:34→22:30)
[2022-12-23] MEDS ORDERED: predniSONE 10 MG TABLET (UD) PEG ONE (10:00)
[2022-12-23] MEDS: BACITRACIN ZINC 15 GM TUBE TOPICAL OINTMENT TP SCH ×2 (10:14→21:39)
[2022-12-23] MEDS: AMINO ACIDS/PROTEIN HYDROLYS 30 ML LIQUID.PKT GT SCH ×2 (10:14→17:50)
[2022-12-23] MEDS: IPRATROPIUM/ALBUTEROL (COMBIVENT) RESPIMAT 20-100 MCG IH SCH ×4 (10:14→21:40)
[2022-12-23] MEDS: MUPIROCIN 2% TOPICAL OINTMENT FOR DECOLONIZATION NS SCH ×2 (10:14→21:39)
[2022-12-23] MEDS: FLUoxetine HCL 20 MG/5 ML 120 BOTTLE PEG SCH (10:15)
[2022-12-23] MEDS: LISINOPRIL 20 MG TABLET PO SCH (10:16)
[2022-12-23] MEDS: NIFEdipine E.R 60 MG TABLET PO SCH (10:16)
[2022-12-23] MEDS: FAMOTIDINE 40 MG/5 ML ORAL SUSPENSION PEG SCH (10:16)
[2022-12-23] MEDS: NYSTATIN 100,000 UNIT/GM TOPICAL CREAM 15 GM TUBE TP SCH ×2 (10:17→21:40)
[2022-12-23] MEDS: POLYETHYLENE GLYCOL (HEALTHYLAX) 3350 17 GM PACKET PO SCH ×2 (10:17→21:40)
[2022-12-23] MEDS: Lacosamide 50 MG/5 ML ORAL SOLUTION UNIT CUPS PEG SCH ×2 (10:18→22:01)
[2022-12-23] MEDS: BUDESONIDE/FORMETEROL FUMARATE 160/4.5 mcg INHALER IH SCH ×2 (10:18→22:30)
[2022-12-23] MEDS: COLLAGENASE CLOSTRIDIUM HIST. 30 GRAMS TUBE TP SCH (11:54)
[2022-12-23] MEDS: SILVER SULFADIAZINE 1% TOP CREAM 400 GM JAR TP SCH (11:55)
[2022-12-23] MEDS ORDERED: EPOETIN ALFA-EPBX 4,000 UNIT/ML VIAL IVPUSH ONE (14:00)
[2022-12-23 14:13] LABS: HEMATOCRIT 28.4 % (32.4-45.2); HEMOGLOBIN 9.2 GM/dL (10.7-15.3); LYMPH % 4.7 % (8-40); MCH 29.5 pg (25.7-33.7); MCHC 32.3 g/dl (32.0-36.0); MEAN CELL VOLUME 91.4 fl (80-96); MEAN PLT VOLUME 7.5 fl (7.5-11.1); MONO % 4.5 % (3.8-10.2); NEUT % 90.8 % (42.8-82.8); PLATELET COUNT 273 10^3/uL (134-434); RBC 3.11 M/mm3 (3.60-5.2); RDW 15.5 % (11.6-15.6); WHITE BLOOD COUNT 6.2 K/mm3 (4.0-10.0)
[2022-12-23 14:30] LABS: CALCIUM 9.3 mg/dL (8.5-10.1)
[2022-12-23 14:31] LABS: BLOOD UREA NITROGEN 41.9 mg/dL (7-18)
[2022-12-23 14:33] LABS: CREATININE 3.1 mg/dL (0.55-1.3)
[2022-12-23] MEDS: CHLORHEXIDINE GLUCONATE 4% CLEANSER FOR DECOLONIZATION TP SCH (21:40)
[2022-12-23] MEDS: ATORVASTATIN CA 80 MG TABLET (FP) PEG SCH (21:40)
[2022-12-24] MEDS: hydrALAZINE HCL 50 MG TABLET (FP) PEG SCH (05:10)
[2022-12-24] MEDS: LABETALOL HCL 200 MG TABLET (FP) PEG SCH (05:10)
[2022-12-24] MEDS: HEPARIN NA (PORCINE) 5,000 UNITS/ML 1ML VIAL SQ SCH (05:10)
[2022-12-24] MEDS: INSULIN SLIDING SCALE (NOVOLOG) 1 VIAL SQ SCH ×2 (06:34→10:55)
[2022-12-24] MEDS: INSULIN (LEVEMIR) 100 UNITS/ML UNITS SQ SCH (06:34)
[2022-12-24 06:45] LABS: HEMATOCRIT 30.7 % (32.4-45.2); HEMOGLOBIN 10.1 GM/dL (10.7-15.3); MCH 29.9 pg (25.7-33.7); MCHC 32.8 g/dl (32.0-36.0); MEAN CELL VOLUME 91.1 fl (80-96); MEAN PLT VOLUME 7.4 fl (7.5-11.1); PLATELET COUNT 247 10^3/uL (134-434); RBC 3.37 M/mm3 (3.60-5.2); RDW 15.2 % (11.6-15.6); WHITE BLOOD COUNT 4.1 K/mm3 (4.0-10.0)
[2022-12-24 06:56] LABS: CHLORIDE 100 mmol/L (98-107); SODIUM 140 mmol/L (136-145)
[2022-12-24 06:57] LABS: CALCIUM 9.3 mg/dL (8.5-10.1)
[2022-12-24 06:58] LABS: BLOOD UREA NITROGEN 22.1 mg/dL (7-18); CO2 30 mmol/L (21-32); GLUCOSE,RANDOM 110 mg/dL (74-106); MAGNESIUM 1.9 mg/dL (1.8-2.4)
[2022-12-24 07:01] LABS: ANION GAP 11 MMOL/L (8-16); CREATININE 2.1 mg/dL (0.55-1.3)
[2022-12-24 08:06] VITALS: RESP 17
[2022-12-24] MEDS ORDERED: POTASSIUM CHLORIDE ORAL LIQUID 20 MEQ/15 ML PEG ONE (08:09)
[2022-12-24] MEDS: AMINO ACIDS/PROTEIN HYDROLYS 30 ML LIQUID.PKT GT SCH (09:04)
[2022-12-24] MEDS: POLYETHYLENE GLYCOL (HEALTHYLAX) 3350 17 GM PACKET PO SCH (09:08)
[2022-12-24] MEDS: FLUoxetine HCL 20 MG/5 ML 120 BOTTLE PEG SCH (09:33)
[2022-12-24] MEDS: FAMOTIDINE 40 MG/5 ML ORAL SUSPENSION PEG SCH (09:34)
[2022-12-24] MEDS: LISINOPRIL 20 MG TABLET PO SCH (09:34)
[2022-12-24] MEDS: NIFEdipine E.R 60 MG TABLET PO SCH (09:34)
[2022-12-24] MEDS: NYSTATIN 100,000 UNIT/GM TOPICAL CREAM 15 GM TUBE TP SCH (09:35)
[2022-12-24] MEDS: BACITRACIN ZINC 15 GM TUBE TOPICAL OINTMENT TP SCH (09:35)
[2022-12-24] MEDS: IPRATROPIUM/ALBUTEROL (COMBIVENT) RESPIMAT 20-100 MCG IH SCH (09:37)
[2022-12-24] MEDS: MUPIROCIN 2% TOPICAL OINTMENT FOR DECOLONIZATION NS SCH (09:37)
[2022-12-24] MEDS: COLLAGENASE CLOSTRIDIUM HIST. 30 GRAMS TUBE TP SCH (09:39)
[2022-12-24] MEDS: SILVER SULFADIAZINE 1% TOP CREAM 400 GM JAR TP SCH (09:39)
[2022-12-24] MEDS: BUDESONIDE/FORMETEROL FUMARATE 160/4.5 mcg INHALER IH SCH (09:39)
[2022-12-24] MEDS: Lacosamide 50 MG/5 ML ORAL SOLUTION UNIT CUPS PEG SCH (09:40)
[2022-12-24] MEDS ORDERED: predniSONE 10 MG TABLET (UD) PEG ONE (10:00)
[2022-12-24 14:01] VITALS: BP 128/61; TEMP 98.6
[2022-12-24 14:05] VITALS: PULSE 70
== END 2022-12-24 15:18 | DRG 189 ==
LOC: JER 21:22 → INTOOBSV 11-23 03:22 → UNDOADMOB 11-23 03:22 → JERBED 11-23 03:22 → J2W 11-23 13:35 → JERBED 11-23 13:35 → J2W 11-24 13:15 → OBSVTOIN 11-26 11:01 → J7W 12-04 21:33 → J4S 12-17 22:08 → J2W 12-19 15:35
PROVIDERS: ADMIT Internal Medicine; ATTEND Internal Medicine
PROC: 5A1D70Z Performance of Urinary Filtration, Intermittent, Less than 6 Hours Per Day (ICD-10-PCS; 2022-11-23)
PROC: XW033E5 Introduction of Remdesivir Anti-infective into Peripheral Vein, Percutaneous Approach, New Technology Group 5 (ICD-10-PCS; principal; 2022-11-26)
PROC: 3E0333Z Introduction of Anti-inflammatory into Peripheral Vein, Percutaneous Approach (ICD-10-PCS; 2022-11-26)
PROC: 5A1D70Z Performance of Urinary Filtration, Intermittent, Less than 6 Hours Per Day (ICD-10-PCS; 2022-12-07)
PROC: 5A1D70Z Performance of Urinary Filtration, Intermittent, Less than 6 Hours Per Day (ICD-10-PCS; 2022-12-08)
PROC: 5A1D70Z Performance of Urinary Filtration, Intermittent, Less than 6 Hours Per Day (ICD-10-PCS; 2022-12-11)
PROC: 5A1D70Z Performance of Urinary Filtration, Intermittent, Less than 6 Hours Per Day (ICD-10-PCS; 2022-12-14)
PROC: 5A1D70Z Performance of Urinary Filtration, Intermittent, Less than 6 Hours Per Day (ICD-10-PCS; 2022-12-16)
PROC: 5A1D70Z Performance of Urinary Filtration, Intermittent, Less than 6 Hours Per Day (ICD-10-PCS; 2022-12-19)
PROC: 5A1D70Z Performance of Urinary Filtration, Intermittent, Less than 6 Hours Per Day (ICD-10-PCS; 2022-12-19)
PROC: 5A1D70Z Performance of Urinary Filtration, Intermittent, Less than 6 Hours Per Day (ICD-10-PCS; 2022-12-23)
DX: J96.21 Acute and chronic respiratory failure with hypoxia (principal); U07.1 COVID-19; G93.41 Metabolic encephalopathy; J69.0 Pneumonitis due to inhalation of food and vomit; N18.6 End stage renal disease; I12.0 Hypertensive chronic kidney disease with stage 5 chronic kidney disease or end stage renal disease; E87.1 Hypo-osmolality and hyponatremia; J98.11 Atelectasis; J90 Pleural effusion, not elsewhere classified; R64 Cachexia; E11.22 Type 2 diabetes mellitus with diabetic chronic kidney disease; E78.00 Pure hypercholesterolemia, unspecified; I44.0 Atrioventricular block, first degree; E87.5 Hyperkalemia; D63.1 Anemia in chronic kidney disease; R49.0 Dysphonia; R13.10 Dysphagia, unspecified; E87.70 Fluid overload, unspecified; R79.89 Other specified abnormal findings of blood chemistry; F32.A Depression, unspecified; Z86.73 Personal history of transient ischemic attack (TIA), and cerebral infarction without residual deficits; Z74.01 Bed confinement status; Z93.0 Tracheostomy status; Z99.2 Dependence on renal dialysis; Z89.421 Acquired absence of other right toe(s); Z68.22 Body mass index [BMI] 22.0-22.9, adult
CPT/HCPCS: 0241U-QW; 36415; 36600; 71045-TC-FY; 74230-TC-FY; 80048; 80053; 82010; 82728; 82803; 82962; 83036; 83540; 83550; 83605; 83690; 83735; 83880; 84100; 84484; 85025; 85027; 85045; 85610; 85730; 86803; 87040; 87340; 92611-GN; 93005; 93010; 93971; 94640; 97162-GP; 99285-25; C9399; C9803-CS; G0378; J1100; J1644; J3535; Q5106; U0003; U0005

== ENCOUNTER 2023-01-02 12:21 | Inpatient (IN) | payer OTHER ==
[2023-01-02] MEDS ORDERED: ONDANSETRON 4 MG/2 ML VIAL IVPUSH ONE (13:04)
[2023-01-02] MEDS ORDERED: ACETAMINOPHEN 1000 MG/100 ML BAG IVPB ONE (13:04)
[2023-01-02] MEDS ORDERED: FAMOTIDINE 20 MG/50 ML IVPB 20 MG/50 ML MG IVPB ONE ×2 (13:04→14:15)
[2023-01-02 14:06] LABS: HEMATOCRIT 28.8 % (32.4-45.2); HEMOGLOBIN 9.8 GM/dL (10.7-15.3); MCH 30.4 pg (25.7-33.7); MEAN CELL VOLUME 89.4 fl (80-96); MEAN PLT VOLUME 8.3 fl (7.5-11.1); PLATELET COUNT 201 10^3/uL (134-434); RBC 3.22 M/mm3 (3.60-5.2); RDW 15.6 % (11.6-15.6); WHITE BLOOD COUNT 9.9 K/mm3 (4.0-10.0)
[2023-01-02 14:15] LABS: INR 0.97 (0.83-1.09); PROTHROMBIN TIME (PATIENT) 11.3 SEC (9.7-13.0)
[2023-01-02] MEDS ORDERED: ACETAMINOPHEN INJECTION 100 ML IVPB ONE (14:15)
[2023-01-02] MEDS ORDERED: ONDANSETRON 4 MG/2 ML VIAL ONE (14:15)
[2023-01-02 14:16] LABS: CHLORIDE 92 mmol/L (98-107); SODIUM 132 mmol/L (136-145)
[2023-01-02 14:18] LABS: ACTIVATED PTT 25.7 SECONDS (25.2-36.5); CALCIUM 8.9 mg/dL (8.5-10.1)
[2023-01-02 14:19] LABS: ALBUMIN 2.4 g/dl (3.4-5.0); ANION GAP 13 MMOL/L (8-16); CO2 27 mmol/L (21-32); GLUCOSE,RANDOM 126 mg/dL (74-106); LIPASE 55 U/L (73-393); MAGNESIUM 2.2 mg/dL (1.8-2.4)
[2023-01-02 14:22] LABS: SGOT/AST 17 U/L (15-37); SGPT/ALT 28 U/L (13-61)
[2023-01-02 14:23] LABS: BILIRUBIN,TOTAL 0.4 mg/dL (0.2-1); TOT PROT 5.5 g/dl (6.4-8.2)
[2023-01-02 14:25] LABS: ALK PHOS 91 U/L (45-117); BLOOD UREA NITROGEN 51.6 mg/dL (7-18)
[2023-01-02 14:27] LABS: ANISOCYTOSIS 0; HELMET CELLS 0; HOWELL-JOLLY BODIES 0; MACROCYTOSIS 0; OVALOCYTE 0; ROULEAU 0; SICKELED CELLS 0; TARGET CELLS 0; TEAR DROP CELLS 0; TOXIC GRANULATION 0
[2023-01-02] MEDS ORDERED: SODIUM CHLORIDE 250 ML IV PRN (15:03)
[2023-01-02] MEDS ORDERED: HEPARIN NA (PORCINE) 5,000 UNITS/ML 1ML VIAL IVPUSH ONE (15:15)
[2023-01-02] MEDS ORDERED: EPOETIN ALFA-EPBX 4,000 UNIT/ML VIAL SQ ONE (15:15)
[2023-01-02] MEDS ORDERED: PIPERACILLIN/TAZOB 3.375 GM 3.375 GM in DEXTROSE 5%-WATER - 50 ML IVPB ONE (16:22)
[2023-01-02] MEDS ORDERED: PIPERACILLIN/TAZOB 3.375 GM 3.375 GM/50 ML BAG IVPB ONE (16:24)
[2023-01-02] MEDS ORDERED: MELATONIN 5 MG TABLETS PO PRN (22:59)
[2023-01-03] MEDS: PIPERACILLIN/TAZOB 2.25 GM 2.25 GM in DEXTROSE 5%-WATER - 50 ML IVPB SCH ×3 (02:20→17:26)
[2023-01-03] MEDS: INSULIN SLIDING SCALE (NOVOLOG) 1 VIAL SQ SCH ×4 (06:29→22:50)
[2023-01-03] MEDS: LABETALOL HCL 200 MG TABLET (FP) PEG SCH ×3 (06:38→22:34)
[2023-01-03] MEDS: hydrALAZINE HCL 50 MG TABLET (FP) PEG SCH ×3 (06:39→22:34)
[2023-01-03] MEDS: cloNIDine-TTS 0.3 MG /24 HRS PATCH.TDWK TD SCH (09:19)
[2023-01-03] MEDS: Lacosamide 50 MG/5 ML ORAL SOLUTION UNIT CUPS PEG SCH ×2 (09:19→22:45)
[2023-01-03] MEDS: amLODIPine BESYLATE 5 MG TABLET (FP) PEG SCH (09:19)
[2023-01-03] MEDS: LISINOPRIL 20 MG TABLET PEG SCH (09:19)
[2023-01-03] MEDS: FLUoxetine HCL 20 MG/5 ML 120 BOTTLE PEG SCH (09:23)
[2023-01-03] MEDS ORDERED: LACOSAMIDE 100 MG TABLET PO SCH (10:00)
[2023-01-03 10:19] LABS: HEMATOCRIT 26.9 % (32.4-45.2); HEMOGLOBIN 9.1 GM/dL (10.7-15.3); MCH 30.5 pg (25.7-33.7); MEAN CELL VOLUME 89.8 fl (80-96); MEAN PLT VOLUME 8.2 fl (7.5-11.1); PLATELET COUNT 167 10^3/uL (134-434); RDW 15.7 % (11.6-15.6); WHITE BLOOD COUNT 6.1 K/mm3 (4.0-10.0)
[2023-01-03 10:22] LABS: INR 1.06 (0.83-1.09); PROTHROMBIN TIME (PATIENT) 12.3 SEC (9.7-13.0)
[2023-01-03 10:39] LABS: CHLORIDE 97 mmol/L (98-107); SODIUM 138 mmol/L (136-145)
[2023-01-03] MEDS ORDERED: POTASSIUM CHLORIDE ORAL LIQUID 20 MEQ/15 ML PEG ONE (10:44)
[2023-01-03 10:45] LABS: ALBUMIN 2.3 g/dl (3.4-5.0); ANION GAP 10 MMOL/L (8-16); CO2 31 mmol/L (21-32); GLUCOSE,RANDOM 108 mg/dL (74-106); MAGNESIUM 1.9 mg/dL (1.8-2.4)
[2023-01-03 10:46] LABS: CREATININE 2.3 mg/dL (0.55-1.3)
[2023-01-03 10:47] LABS: SGOT/AST 16 U/L (15-37)
[2023-01-03 10:48] LABS: BILIRUBIN,TOTAL 0.3 mg/dL (0.2-1); PHOSPHOROUS 1.9 mg/dL (2.5-4.9); SGPT/ALT 24 U/L (13-61); TOT PROT 5.3 g/dl (6.4-8.2)
[2023-01-03 10:50] LABS: ALK PHOS 89 U/L (45-117)
[2023-01-03 10:58] LABS: BLOOD UREA NITROGEN 20.5 mg/dL (7-18); N-TERMINAL BNP > 35000.0 pg/ml (5-125)
[2023-01-03] MEDS: NYSTATIN 100,000 UNIT/GM TOPICAL CREAM 15 GM TUBE TP SCH ×2 (12:16→23:03)
[2023-01-03] MEDS: BUDESONIDE/FORMETEROL FUMARATE 160/4.5 mcg INHALER IH SCH ×2 (12:16→22:44)
[2023-01-03] MEDS ORDERED: SODIUM CHLORIDE 250 ML IV PRN (13:14)
[2023-01-03 14:51] VITALS: BMI 25.0
[2023-01-03] MEDS ORDERED: DEXTROSE 50%-WATER - 25 GM/50 ML VIAL IVPUSH PRN (16:30)
[2023-01-03] MEDS ORDERED: ONDANSETRON 4 MG/2 ML VIAL IVPUSH ONE (17:00)
[2023-01-03] MEDS ORDERED: VANCOMYCIN 250 MG/5 ML ORAL SOLUTION PEG SCH (18:00)
[2023-01-03 18:47] LABS: EPI CELLS >36 /uL (0-25.1); HYALINE CASTS 4 /uL (0-3.1); PH,URINE 5.5 (5.0-8.0); URINE APPEARANCE TURBID; URINE BACTERIA 212 /uL (0-1359); URINE BILIRUBIN NEGATIVE (NEGATIVE); URINE COLOR YELLOW; URINE GLUCOSE (UA) 2+ (NEGATIVE); URINE KETONE NEGATIVE (NEGATIVE); URINE LEUK ESTERASE 3+ (NEGATIVE); URINE NITRITE NEGATIVE (NEGATIVE); URINE PROTEIN 4+ (NEGATIVE); URINE UROBILINOGEN 0.2 mg/dL (0.2-1.0); URINE WBC 8208 /uL (0-25.8)
[2023-01-03] MEDS: ATORVASTATIN CA 80 MG TABLET (FP) PEG SCH (22:34)
[2023-01-03] MEDS: MELATONIN 5 MG TABLETS NR PRN (22:35)
[2023-01-03] MEDS: MINERAL OIL/PET HY-PHL TOPICAL OINTMENT 454 GM JAR TP SCH (23:03)
[2023-01-04] MEDS ORDERED: VANCOMYCIN 250 MG/5 ML ORAL SOLUTION PEG SCH
[2023-01-04] MEDS ORDERED: PIPERACILLIN/TAZOB 2.25 GM 2.25 GM in DEXTROSE 5%-WATER - 50 ML IVPB SCH (02:00)
[2023-01-04] MEDS: PIPERACILLIN/TAZOB 2.25 GM 2.25 GM in DEXTROSE 5%-WATER - 50 ML IVPB SCH ×2 (02:42→10:48)
[2023-01-04] MEDS ORDERED: methylPREDNISolone NA SUCC 40 MG/1 ML VIAL IVPUSH ONE (05:00)
[2023-01-04] MEDS: hydrALAZINE HCL 50 MG TABLET (FP) PEG SCH ×3 (06:20→22:46)
[2023-01-04] MEDS: LABETALOL HCL 200 MG TABLET (FP) PEG SCH ×3 (06:20→22:45)
[2023-01-04] MEDS: INSULIN SLIDING SCALE (NOVOLOG) 1 VIAL SQ SCH ×3 (06:20→17:49)
[2023-01-04 08:34] LABS: URINE RBC 292 /uL (0-23.9)
[2023-01-04 08:37] LABS: YEAST NEGATIVE (NEGATIVE)
[2023-01-04] MEDS: methylPREDNISolone NA SUCC 40 MG/1 ML VIAL IVPUSH SCH ×2 (09:00→12:26)
[2023-01-04 10:18] LABS: HEMATOCRIT 28.2 % (32.4-45.2); HEMOGLOBIN 9.4 GM/dL (10.7-15.3); MCHC 33.2 g/dl (32.0-36.0); MEAN CELL VOLUME 90.4 fl (80-96); MEAN PLT VOLUME 8.6 fl (7.5-11.1); PLATELET COUNT 173 10^3/uL (134-434); RBC 3.12 M/mm3 (3.60-5.2); RDW 15.7 % (11.6-15.6); WHITE BLOOD COUNT 10.6 K/mm3 (4.0-10.0)
[2023-01-04 10:32] LABS: INR 1.03 (0.83-1.09)
[2023-01-04 10:43] LABS: MAGNESIUM 2.1 mg/dL (1.8-2.4)
[2023-01-04] MEDS: LISINOPRIL 20 MG TABLET PEG SCH (10:47)
[2023-01-04] MEDS: amLODIPine BESYLATE 5 MG TABLET (FP) PEG SCH (10:48)
[2023-01-04] MEDS: Lacosamide 50 MG/5 ML ORAL SOLUTION UNIT CUPS PEG SCH ×2 (10:50→22:48)
[2023-01-04] MEDS: MINERAL OIL/PET HY-PHL TOPICAL OINTMENT 454 GM JAR TP SCH ×2 (10:52→22:47)
[2023-01-04] MEDS: BUDESONIDE/FORMETEROL FUMARATE 160/4.5 mcg INHALER IH SCH ×2 (10:53→22:48)
[2023-01-04] MEDS: NYSTATIN 100,000 UNIT/GM TOPICAL CREAM 15 GM TUBE TP SCH ×2 (10:53→22:48)
[2023-01-04] MEDS: FLUoxetine HCL 20 MG/5 ML 120 BOTTLE PEG SCH (10:59)
[2023-01-04 11:37] LABS: ANISOCYTOSIS 1+; MACROCYTOSIS 1+
[2023-01-04 12:41] LABS: CALCIUM 8.6 mg/dL (8.5-10.1)
[2023-01-04 12:42] LABS: ALBUMIN 2.5 g/dl (3.4-5.0); BLOOD UREA NITROGEN 27.5 mg/dL (7-18)
[2023-01-04 12:45] LABS: BILIRUBIN,TOTAL 0.4 mg/dL (0.2-1); TOT PROT 5.6 g/dl (6.4-8.2)
[2023-01-04] MEDS ORDERED: EPOETIN ALFA-EPBX 4,000 UNIT/ML VIAL IVPUSH ONE (15:00)
[2023-01-04] MEDS: CARBAMIDE PEROXIDE 6.5% OTIC 15 ML BOTTLE AU SCH ×2 (16:18→22:47)
[2023-01-04] MEDS: ATORVASTATIN CA 80 MG TABLET (FP) PEG SCH (22:45)
[2023-01-04] MEDS: HEPARIN NA (PORCINE) 5,000 UNITS/ML 1ML VIAL SQ SCH (22:46)
[2023-01-04] MEDS: MELATONIN 5 MG TABLETS NR PRN (22:46)
[2023-01-05] MEDS: INSULIN SLIDING SCALE (NOVOLOG) 1 VIAL SQ SCH ×4 (00:51→16:35)
[2023-01-05] MEDS: ALBUTEROL SO4 2.5/IPRATROPIUM 0.5 INH SOL 3 ML VIAL.NEB. NEB PRN ×3 (02:07→21:13)
[2023-01-05] MEDS: LABETALOL HCL 200 MG TABLET (FP) PEG SCH ×3 (05:47→23:21)
[2023-01-05] MEDS: hydrALAZINE HCL 50 MG TABLET (FP) PEG SCH ×3 (05:47→23:22)
[2023-01-05 09:26] LABS: BASO % 0.4 % (0-2.0); HEMATOCRIT 26.7 % (32.4-45.2); HEMOGLOBIN 8.8 GM/dL (10.7-15.3); LYMPH % 6.7 % (8-40); MCH 29.8 pg (25.7-33.7); MCHC 32.9 g/dl (32.0-36.0); MEAN CELL VOLUME 90.6 fl (80-96); MEAN PLT VOLUME 8.3 fl (7.5-11.1); MONO % 10.9 % (3.8-10.2); PLATELET COUNT 203 10^3/uL (134-434); RBC 2.95 M/mm3 (3.60-5.2); RDW 15.3 % (11.6-15.6); WHITE BLOOD COUNT 5.6 K/mm3 (4.0-10.0)
[2023-01-05 09:38] LABS: INR 1.05 (0.83-1.09); PROTHROMBIN TIME (PATIENT) 12.2 SEC (9.7-13.0)
[2023-01-05 09:48] LABS: ALBUMIN 2.4 g/dl (3.4-5.0); CALCIUM 8.3 mg/dL (8.5-10.1)
[2023-01-05 09:49] LABS: BLOOD UREA NITROGEN 12.2 mg/dL (7-18)
[2023-01-05 09:52] LABS: CREATININE 1.9 mg/dL (0.55-1.3)
[2023-01-05 09:53] LABS: BILIRUBIN,TOTAL 0.4 mg/dL (0.2-1); TOT PROT 5.4 g/dl (6.4-8.2)
[2023-01-05] MEDS: FLUoxetine HCL 20 MG/5 ML 120 BOTTLE PEG SCH (10:00)
[2023-01-05] MEDS: LISINOPRIL 20 MG TABLET PEG SCH (10:00)
[2023-01-05] MEDS: HEPARIN NA (PORCINE) 5,000 UNITS/ML 1ML VIAL SQ SCH ×2 (10:01→23:24)
[2023-01-05] MEDS: amLODIPine BESYLATE 5 MG TABLET (FP) PEG SCH (10:01)
[2023-01-05] MEDS: BUDESONIDE/FORMETEROL FUMARATE 160/4.5 mcg INHALER IH SCH ×2 (10:03→23:22)
[2023-01-05] MEDS: MINERAL OIL/PET HY-PHL TOPICAL OINTMENT 454 GM JAR TP SCH ×2 (10:03→23:23)
[2023-01-05] MEDS: NYSTATIN 100,000 UNIT/GM TOPICAL CREAM 15 GM TUBE TP SCH ×2 (10:04→23:24)
[2023-01-05] MEDS: CARBAMIDE PEROXIDE 6.5% OTIC 15 ML BOTTLE AU SCH ×2 (10:05→23:24)
[2023-01-05] MEDS: Lacosamide 50 MG/5 ML ORAL SOLUTION UNIT CUPS PEG SCH ×2 (10:06→23:22)
[2023-01-05] MEDS: ASPIRIN 81 MG CHEWABLE TABLETS PEG SCH (10:11)
[2023-01-05] MEDS ORDERED: PEG 3350/NA SULF BICARB CL/KCL 4000 ML SOLN.RECON GT ONE (10:30)
[2023-01-05] MEDS: DEXTROSE 5%-WATER - 1,000 ML IV SCH (10:45)
[2023-01-05] MEDS: ZINC OXIDE 20% TOPICAL OINTMENT 30 GM TUBE TP SCH (12:14)
[2023-01-05] MEDS: POTASSIUM CHLORIDE ORAL LIQUID 20 MEQ/15 ML PO SCH ×2 (13:12→23:22)
[2023-01-05] MEDS ORDERED: ACETAMINOPHEN 1000 MG/100 ML BAG IVPB PRN (15:33)
[2023-01-05] MEDS ORDERED: BISACODYL 10 MG SUPP.RECT PR ONE (18:00)
[2023-01-05] MEDS: ATORVASTATIN CA 80 MG TABLET (FP) PEG SCH (23:22)
[2023-01-06] MEDS: INSULIN SLIDING SCALE (NOVOLOG) 1 VIAL SQ SCH ×5 (00:16→21:17)
[2023-01-06] MEDS: ALBUTEROL SO4 2.5/IPRATROPIUM 0.5 INH SOL 3 ML VIAL.NEB. NEB PRN ×2 (02:53→21:40)
[2023-01-06] MEDS ORDERED: LABETALOL HCL 100 MG TABLET (FP) ONE (06:06)
[2023-01-06] MEDS: LABETALOL HCL 200 MG TABLET (FP) PEG SCH ×3 (06:12→23:11)
[2023-01-06] MEDS: hydrALAZINE HCL 50 MG TABLET (FP) PEG SCH ×3 (06:12→23:11)
[2023-01-06] MEDS ORDERED: SODIUM CHLORIDE 250 ML IV PRN (10:28)
[2023-01-06] MEDS: DEXTROSE 5%-WATER - 1,000 ML IV SCH ×2 (11:42→14:10)
[2023-01-06] MEDS: ASPIRIN 81 MG CHEWABLE TABLETS PEG SCH (11:42)
[2023-01-06] MEDS: CARBAMIDE PEROXIDE 6.5% OTIC 15 ML BOTTLE AU SCH ×2 (13:55→23:12)
[2023-01-06] MEDS: MINERAL OIL/PET HY-PHL TOPICAL OINTMENT 454 GM JAR TP SCH ×2 (13:55→23:12)
[2023-01-06] MEDS: NYSTATIN 100,000 UNIT/GM TOPICAL CREAM 15 GM TUBE TP SCH ×2 (13:55→23:12)
[2023-01-06] MEDS: Lacosamide 50 MG/5 ML ORAL SOLUTION UNIT CUPS PEG SCH ×2 (13:56→23:13)
[2023-01-06] MEDS: amLODIPine BESYLATE 5 MG TABLET (FP) PEG SCH (13:56)
[2023-01-06] MEDS: LISINOPRIL 20 MG TABLET PEG SCH (13:56)
[2023-01-06] MEDS: FLUoxetine HCL 20 MG/5 ML 120 BOTTLE PEG SCH (13:56)
[2023-01-06] MEDS: BUDESONIDE/FORMETEROL FUMARATE 160/4.5 mcg INHALER IH SCH ×2 (13:56→23:12)
[2023-01-06] MEDS: ZINC OXIDE 20% TOPICAL OINTMENT 30 GM TUBE TP SCH (13:57)
[2023-01-06] MEDS: CEFTRIAXONE 1 GM in DEXTROSE 5%-WATER - 50 ML IVPB SCH (18:04)
[2023-01-06] MEDS ORDERED: DEXTROSE 50%-WATER 25 GM/50 ML DISP.SYRIN IVPUSH PRN (21:19)
[2023-01-06] MEDS: ATORVASTATIN CA 80 MG TABLET (FP) PEG SCH (23:11)
[2023-01-06] MEDS: HEPARIN NA (PORCINE) 5,000 UNITS/ML 1ML VIAL SQ SCH (23:12)
[2023-01-07] MEDS: ALBUTEROL SO4 2.5/IPRATROPIUM 0.5 INH SOL 3 ML VIAL.NEB. NEB PRN ×2 (02:04→07:54)
[2023-01-07] MEDS: hydrALAZINE HCL 50 MG TABLET (FP) PEG SCH ×3 (07:00→22:22)
[2023-01-07] MEDS: LABETALOL HCL 200 MG TABLET (FP) PEG SCH ×3 (07:00→22:23)
[2023-01-07] MEDS: INSULIN SLIDING SCALE (NOVOLOG) 1 VIAL SQ SCH ×4 (07:09→22:24)
[2023-01-07 09:18] LABS: PROTHROMBIN TIME (PATIENT) 11.6 SEC (9.7-13.0)
[2023-01-07 09:26] LABS: BASO % 0.6 % (0-2.0); EOS % 0.2 % (0-4.5); HEMATOCRIT 26.8 % (32.4-45.2); HEMOGLOBIN 8.9 GM/dL (10.7-15.3); LYMPH % 9.1 % (8-40); MCH 29.8 pg (25.7-33.7); MCHC 33.1 g/dl (32.0-36.0); MEAN PLT VOLUME 7.6 fl (7.5-11.1); MONO % 8.2 % (3.8-10.2); NEUT % 81.9 % (42.8-82.8); PLATELET COUNT 201 10^3/uL (134-434); RBC 2.98 M/mm3 (3.60-5.2); RDW 15.4 % (11.6-15.6); WHITE BLOOD COUNT 5.3 K/mm3 (4.0-10.0)
[2023-01-07 09:41] LABS: CALCIUM 8.4 mg/dL (8.5-10.1)
[2023-01-07 09:42] LABS: ALBUMIN 2.5 g/dl (3.4-5.0); MAGNESIUM 1.8 mg/dL (1.8-2.4)
[2023-01-07 09:44] LABS: CREATININE 1.7 mg/dL (0.55-1.3)
[2023-01-07 09:45] LABS: BILIRUBIN,TOTAL 0.5 mg/dL (0.2-1); TOT PROT 5.4 g/dl (6.4-8.2)
[2023-01-07] MEDS: LISINOPRIL 20 MG TABLET PEG SCH (10:02)
[2023-01-07] MEDS: FLUoxetine HCL 20 MG/5 ML 120 BOTTLE PEG SCH (10:03)
[2023-01-07] MEDS: CEFTRIAXONE 1 GM in DEXTROSE 5%-WATER - 50 ML IVPB SCH (10:03)
[2023-01-07] MEDS: ASPIRIN 81 MG CHEWABLE TABLETS PEG SCH (10:03)
[2023-01-07] MEDS: DEXTROSE 5%-WATER - 1,000 ML IV SCH (10:03)
[2023-01-07] MEDS: amLODIPine BESYLATE 5 MG TABLET (FP) PEG SCH (10:03)
[2023-01-07] MEDS: Lacosamide 50 MG/5 ML ORAL SOLUTION UNIT CUPS PEG SCH ×2 (10:04→22:25)
[2023-01-07] MEDS: ZINC OXIDE 20% TOPICAL OINTMENT 30 GM TUBE TP SCH (10:04)
[2023-01-07] MEDS: BUDESONIDE/FORMETEROL FUMARATE 160/4.5 mcg INHALER IH SCH ×2 (10:04→22:24)
[2023-01-07] MEDS: NYSTATIN 100,000 UNIT/GM TOPICAL CREAM 15 GM TUBE TP SCH ×2 (10:05→22:23)
[2023-01-07] MEDS: CARBAMIDE PEROXIDE 6.5% OTIC 15 ML BOTTLE AU SCH ×3 (10:05→22:22)
[2023-01-07] MEDS: MINERAL OIL/PET HY-PHL TOPICAL OINTMENT 454 GM JAR TP SCH ×2 (10:05→22:22)
[2023-01-07] MEDS: ALBUTEROL SO4 2.5/IPRATROPIUM 0.5 INH SOL 3 ML VIAL.NEB. NEB SCH ×3 (11:46→20:05)
[2023-01-07] MEDS ORDERED: FUROSEMIDE 40 MG/4 ML INJECTABLE VIAL IVPUSH ONE (11:47)
[2023-01-07] MEDS: HEPARIN NA (PORCINE) 5,000 UNITS/ML 1ML VIAL SQ SCH ×2 (11:50→22:23)
[2023-01-07 13:02] LABS: ARTERIAL BLD GAS O2 SATURATION 94.9 % (95-98); ARTERIAL BLOOD GAS BASE EXCESS 3.4 mmol/L (-2-2); ARTERIAL BLOOD GAS PO2 71.6 mmHg (80-100); ARTERIAL BLOOD GAS pH 7.442 (7.350-7.450)
[2023-01-07 13:05] LABS: ALLENS TEST POSITIVE
[2023-01-07] MEDS: ATORVASTATIN CA 80 MG TABLET (FP) PEG SCH (22:23)
[2023-01-08] MEDS: MELATONIN 5 MG TABLETS NR PRN (00:25)
[2023-01-08] MEDS ORDERED: LABETALOL HCL 100 MG TABLET (FP) ONE (06:11)
[2023-01-08] MEDS: INSULIN SLIDING SCALE (NOVOLOG) 1 VIAL SQ SCH ×4 (06:50→22:08)
[2023-01-08] MEDS: LABETALOL HCL 200 MG TABLET (FP) PEG SCH ×3 (06:50→21:47)
[2023-01-08] MEDS: hydrALAZINE HCL 50 MG TABLET (FP) PEG SCH ×3 (06:50→21:47)
[2023-01-08] MEDS ORDERED: ONDANSETRON 4 MG/2 ML VIAL IVPUSH ONE (08:30)
[2023-01-08] MEDS ORDERED: SODIUM CHLORIDE 250 ML IV PRN (08:41)
[2023-01-08] MEDS: ALBUTEROL SO4 2.5/IPRATROPIUM 0.5 INH SOL 3 ML VIAL.NEB. NEB SCH ×5 (08:45→20:03)
[2023-01-08] MEDS: CARBAMIDE PEROXIDE 6.5% OTIC 15 ML BOTTLE AU SCH ×2 (09:50→21:35)
[2023-01-08] MEDS: CEFTRIAXONE 1 GM in DEXTROSE 5%-WATER - 50 ML IVPB SCH (09:56)
[2023-01-08] MEDS: HEPARIN NA (PORCINE) 5,000 UNITS/ML 1ML VIAL SQ SCH ×2 (09:57→21:38)
[2023-01-08] MEDS: MINERAL OIL/PET HY-PHL TOPICAL OINTMENT 454 GM JAR TP SCH ×2 (09:57→21:34)
[2023-01-08] MEDS: ASPIRIN 81 MG CHEWABLE TABLETS PEG SCH (09:57)
[2023-01-08] MEDS: FLUoxetine HCL 20 MG/5 ML 120 BOTTLE PEG SCH (09:57)
[2023-01-08] MEDS: NYSTATIN 100,000 UNIT/GM TOPICAL CREAM 15 GM TUBE TP SCH ×2 (09:57→21:41)
[2023-01-08] MEDS: LISINOPRIL 20 MG TABLET PEG SCH (09:57)
[2023-01-08] MEDS: amLODIPine BESYLATE 5 MG TABLET (FP) PEG SCH (09:57)
[2023-01-08] MEDS: METOCLOPRAMIDE HCL INJECTION 10 MG/2 ML VIAL IVPUSH SCH ×2 (09:57→17:55)
[2023-01-08] MEDS: BUDESONIDE/FORMETEROL FUMARATE 160/4.5 mcg INHALER IH SCH ×2 (09:58→21:48)
[2023-01-08] MEDS: ZINC OXIDE 20% TOPICAL OINTMENT 30 GM TUBE TP SCH (09:58)
[2023-01-08] MEDS: Lacosamide 50 MG/5 ML ORAL SOLUTION UNIT CUPS PEG SCH ×2 (09:58→21:49)
[2023-01-08 13:32] LABS: HEMATOCRIT 25.6 % (32.4-45.2); HEMOGLOBIN 8.3 GM/dL (10.7-15.3); MCH 29.5 pg (25.7-33.7); MCHC 32.5 g/dl (32.0-36.0); MEAN CELL VOLUME 90.7 fl (80-96); MEAN PLT VOLUME 7.3 fl (7.5-11.1); PLATELET COUNT 164 10^3/uL (134-434); RBC 2.82 M/mm3 (3.60-5.2); RDW 15.8 % (11.6-15.6); WHITE BLOOD COUNT 5.4 K/mm3 (4.0-10.0)
[2023-01-08 13:39] LABS: INR 0.94 (0.83-1.09); PROTHROMBIN TIME (PATIENT) 10.9 SEC (9.7-13.0)
[2023-01-08 13:50] LABS: CALCIUM 8.7 mg/dL (8.5-10.1)
[2023-01-08 13:51] LABS: ALBUMIN 2.6 g/dl (3.4-5.0); BLOOD UREA NITROGEN 16.1 mg/dL (7-18); MAGNESIUM 1.7 mg/dL (1.8-2.4)
[2023-01-08 13:54] LABS: CREATININE 2.5 mg/dL (0.55-1.3)
[2023-01-08 13:55] LABS: BILIRUBIN,TOTAL 0.3 mg/dL (0.2-1); TOT PROT 5.6 g/dl (6.4-8.2)
[2023-01-08 14:07] LABS: ANISOCYTOSIS 0; MACROCYTOSIS 0
[2023-01-08] MEDS: ALBUMIN HUMAN 25% 12.5 GM/50 ML VIAL IV SCH (15:42)
[2023-01-08] MEDS: ATORVASTATIN CA 80 MG TABLET (FP) PEG SCH (21:42)
[2023-01-09] MEDS: METOCLOPRAMIDE HCL INJECTION 10 MG/2 ML VIAL IVPUSH SCH (00:51)
[2023-01-09] MEDS: LABETALOL HCL 200 MG TABLET (FP) PEG SCH ×3 (06:11→22:34)
[2023-01-09] MEDS: hydrALAZINE HCL 50 MG TABLET (FP) PEG SCH ×4 (06:11→22:33)
[2023-01-09] MEDS: INSULIN SLIDING SCALE (NOVOLOG) 1 VIAL SQ SCH ×4 (06:16→22:34)
[2023-01-09] MEDS: ALBUTEROL SO4 2.5/IPRATROPIUM 0.5 INH SOL 3 ML VIAL.NEB. NEB SCH ×4 (07:40→20:56)
[2023-01-09] MEDS: BUDESONIDE/FORMETEROL FUMARATE 160/4.5 mcg INHALER IH SCH ×2 (11:00→22:34)
[2023-01-09] MEDS: CEFTRIAXONE 1 GM in DEXTROSE 5%-WATER - 50 ML IVPB SCH (11:31)
[2023-01-09] MEDS: ASPIRIN 81 MG CHEWABLE TABLETS PEG SCH (11:32)
[2023-01-09] MEDS: amLODIPine BESYLATE 5 MG TABLET (FP) PEG SCH (11:32)
[2023-01-09] MEDS: LISINOPRIL 20 MG TABLET PEG SCH ×2 (11:32→19:36)
[2023-01-09] MEDS ORDERED: SODIUM CHLORIDE 250 ML IV PRN (11:36)
[2023-01-09] MEDS: CARBAMIDE PEROXIDE 6.5% OTIC 15 ML BOTTLE AU SCH ×2 (12:14→22:33)
[2023-01-09] MEDS: HEPARIN NA (PORCINE) 5,000 UNITS/ML 1ML VIAL SQ SCH ×2 (12:15→22:33)
[2023-01-09] MEDS: FLUoxetine HCL 20 MG/5 ML 120 BOTTLE PEG SCH (12:15)
[2023-01-09] MEDS: Lacosamide 50 MG/5 ML ORAL SOLUTION UNIT CUPS PEG SCH ×2 (12:16→22:36)
[2023-01-09] MEDS: MINERAL OIL/PET HY-PHL TOPICAL OINTMENT 454 GM JAR TP SCH ×2 (12:17→22:33)
[2023-01-09] MEDS: NYSTATIN 100,000 UNIT/GM TOPICAL CREAM 15 GM TUBE TP SCH ×2 (12:18→22:33)
[2023-01-09] MEDS: ZINC OXIDE 20% TOPICAL OINTMENT 30 GM TUBE TP SCH (12:18)
[2023-01-09] MEDS ORDERED: FUROSEMIDE 40 MG/4 ML INJECTABLE VIAL IVPUSH ONE ×2 (12:24→17:00)
[2023-01-09 12:39] VITALS: RESP 18
[2023-01-09] MEDS ORDERED: INSULIN (NOVOLOG) ASPART 100 UNITS/ML 10ML VIAL ONE (21:29)
[2023-01-09] MEDS: ATORVASTATIN CA 80 MG TABLET (FP) PEG SCH (22:33)
[2023-01-10] MEDS: INSULIN SLIDING SCALE (NOVOLOG) 1 VIAL SQ SCH ×4 (07:28→23:04)
[2023-01-10] MEDS: hydrALAZINE HCL 50 MG TABLET (FP) PEG SCH ×3 (07:28→23:03)
[2023-01-10] MEDS: LABETALOL HCL 200 MG TABLET (FP) PEG SCH ×3 (07:28→23:04)
[2023-01-10] MEDS: ALBUTEROL SO4 2.5/IPRATROPIUM 0.5 INH SOL 3 ML VIAL.NEB. NEB SCH ×4 (07:51→19:42)
[2023-01-10] MEDS: CEFTRIAXONE 1 GM in DEXTROSE 5%-WATER - 50 ML IVPB SCH (10:52)
[2023-01-10] MEDS: LISINOPRIL 20 MG TABLET PEG SCH (10:53)
[2023-01-10] MEDS: HEPARIN NA (PORCINE) 5,000 UNITS/ML 1ML VIAL SQ SCH ×2 (10:53→23:04)
[2023-01-10] MEDS: ASPIRIN 81 MG CHEWABLE TABLETS PEG SCH (10:53)
[2023-01-10] MEDS: amLODIPine BESYLATE 5 MG TABLET (FP) PEG SCH (10:53)
[2023-01-10] MEDS: CARBAMIDE PEROXIDE 6.5% OTIC 15 ML BOTTLE AU SCH ×2 (10:54→23:04)
[2023-01-10] MEDS: MINERAL OIL/PET HY-PHL TOPICAL OINTMENT 454 GM JAR TP SCH ×2 (10:54→23:03)
[2023-01-10] MEDS: cloNIDine-TTS 0.3 MG /24 HRS PATCH.TDWK TD SCH (11:26)
[2023-01-10] MEDS: FLUoxetine HCL 20 MG/5 ML 120 BOTTLE PEG SCH (11:27)
[2023-01-10] MEDS: BUDESONIDE/FORMETEROL FUMARATE 160/4.5 mcg INHALER IH SCH ×2 (11:51→23:04)
[2023-01-10] MEDS: ZINC OXIDE 20% TOPICAL OINTMENT 30 GM TUBE TP SCH (11:52)
[2023-01-10] MEDS: NYSTATIN 100,000 UNIT/GM TOPICAL CREAM 15 GM TUBE TP SCH ×2 (11:52→23:04)
[2023-01-10] MEDS ORDERED: LABETALOL HCL 100 MG TABLET (FP) ONE (14:10)
[2023-01-10] MEDS ORDERED: EPOETIN ALFA-EPBX 4,000 UNIT/ML VIAL SQ ONE (16:21)
[2023-01-10] MEDS: ATORVASTATIN CA 80 MG TABLET (FP) PEG SCH (23:04)
[2023-01-10] MEDS: MELATONIN 5 MG TABLETS NR PRN (23:05)
[2023-01-11] MEDS: hydrALAZINE HCL 50 MG TABLET (FP) PEG SCH ×3 (07:03→22:32)
[2023-01-11] MEDS: INSULIN SLIDING SCALE (NOVOLOG) 1 VIAL SQ SCH ×4 (07:04→22:47)
[2023-01-11] MEDS: LABETALOL HCL 200 MG TABLET (FP) PEG SCH ×3 (07:04→22:34)
[2023-01-11] MEDS ORDERED: SODIUM CHLORIDE 250 ML IV PRN (07:27)
[2023-01-11] MEDS ORDERED: EPOETIN ALFA 10,000 UNIT/1 ML VIAL SQ ONE (09:00)
[2023-01-11] MEDS: ALBUTEROL SO4 2.5/IPRATROPIUM 0.5 INH SOL 3 ML VIAL.NEB. NEB SCH ×4 (09:02→19:40)
[2023-01-11] MEDS: MINERAL OIL/PET HY-PHL TOPICAL OINTMENT 454 GM JAR TP SCH ×2 (09:44→22:33)
[2023-01-11] MEDS: CARBAMIDE PEROXIDE 6.5% OTIC 15 ML BOTTLE AU SCH ×2 (09:45→22:32)
[2023-01-11] MEDS: ASPIRIN 81 MG CHEWABLE TABLETS PEG SCH (09:45)
[2023-01-11] MEDS: NYSTATIN 100,000 UNIT/GM TOPICAL CREAM 15 GM TUBE TP SCH ×2 (09:51→22:36)
[2023-01-11] MEDS: HEPARIN NA (PORCINE) 5,000 UNITS/ML 1ML VIAL SQ SCH ×2 (09:51→22:33)
[2023-01-11] MEDS: LISINOPRIL 20 MG TABLET PEG SCH (09:52)
[2023-01-11] MEDS: amLODIPine BESYLATE 5 MG TABLET (FP) PEG SCH (09:52)
[2023-01-11] MEDS: CEFTRIAXONE 1 GM in DEXTROSE 5%-WATER - 50 ML IVPB SCH (09:52)
[2023-01-11] MEDS: FLUoxetine HCL 20 MG/5 ML 120 BOTTLE PEG SCH (09:52)
[2023-01-11] MEDS: BUDESONIDE/FORMETEROL FUMARATE 160/4.5 mcg INHALER IH SCH ×2 (09:53→22:35)
[2023-01-11] MEDS: ZINC OXIDE 20% TOPICAL OINTMENT 30 GM TUBE TP SCH (09:53)
[2023-01-11 10:41] LABS: BLOOD UREA NITROGEN 20.1 mg/dL (7-18); CALCIUM 8.8 mg/dL (8.5-10.1); MAGNESIUM 1.7 mg/dL (1.8-2.4)
[2023-01-11 10:42] LABS: ALBUMIN 2.4 g/dl (3.4-5.0)
[2023-01-11 10:45] LABS: CREATININE 2.2 mg/dL (0.55-1.3)
[2023-01-11 10:46] LABS: BILIRUBIN,TOTAL 0.4 mg/dL (0.2-1); TOT PROT 5.2 g/dl (6.4-8.2)
[2023-01-11] MEDS: ATORVASTATIN CA 80 MG TABLET (FP) PEG SCH (22:34)
[2023-01-12] MEDS: LABETALOL HCL 200 MG TABLET (FP) PEG SCH ×2 (06:55→15:00)
[2023-01-12] MEDS: hydrALAZINE HCL 50 MG TABLET (FP) PEG SCH ×2 (06:55→15:00)
[2023-01-12] MEDS: INSULIN SLIDING SCALE (NOVOLOG) 1 VIAL SQ SCH ×3 (07:02→16:49)
[2023-01-12] MEDS: ALBUTEROL SO4 2.5/IPRATROPIUM 0.5 INH SOL 3 ML VIAL.NEB. NEB SCH ×3 (08:00→16:33)
[2023-01-12] MEDS: LISINOPRIL 20 MG TABLET PEG SCH (10:40)
[2023-01-12] MEDS: FLUoxetine HCL 20 MG/5 ML 120 BOTTLE PEG SCH (10:41)
[2023-01-12] MEDS: ASPIRIN 81 MG CHEWABLE TABLETS PEG SCH (10:41)
[2023-01-12] MEDS: MINERAL OIL/PET HY-PHL TOPICAL OINTMENT 454 GM JAR TP SCH (10:41)
[2023-01-12] MEDS: amLODIPine BESYLATE 5 MG TABLET (FP) PEG SCH (10:41)
[2023-01-12] MEDS: CEFTRIAXONE 1 GM in DEXTROSE 5%-WATER - 50 ML IVPB SCH (10:42)
[2023-01-12] MEDS: BUDESONIDE/FORMETEROL FUMARATE 160/4.5 mcg INHALER IH SCH (10:42)
[2023-01-12] MEDS: ZINC OXIDE 20% TOPICAL OINTMENT 30 GM TUBE TP SCH (10:42)
[2023-01-12] MEDS: NYSTATIN 100,000 UNIT/GM TOPICAL CREAM 15 GM TUBE TP SCH (11:23)
[2023-01-12] MEDS: CARBAMIDE PEROXIDE 6.5% OTIC 15 ML BOTTLE AU SCH (11:24)
[2023-01-12] MEDS: HEPARIN NA (PORCINE) 5,000 UNITS/ML 1ML VIAL SQ SCH (11:24)
[2023-01-12 13:18] LABS: ALBUMIN 2.5 g/dl (3.4-5.0); CALCIUM 8.8 mg/dL (8.5-10.1)
[2023-01-12 13:19] LABS: MAGNESIUM 1.7 mg/dL (1.8-2.4)
[2023-01-12 13:21] LABS: CREATININE 2.1 mg/dL (0.55-1.3)
[2023-01-12 13:23] LABS: BILIRUBIN,TOTAL 0.5 mg/dL (0.2-1); TOT PROT 5.3 g/dl (6.4-8.2)
[2023-01-12] MEDS ORDERED: metroNIDAZOLE 250 MG TABLET GT SCH (14:00)
[2023-01-12] MEDS ORDERED: amLODIPine BESYLATE 5 MG TABLET (FP) PEG ONE (16:58)
[2023-01-12] MEDS ORDERED: amLODIPine BESYLATE 5 MG TABLET (FP) PEG SCH (16:59)
[2023-01-12 19:19] VITALS: BP 126/69; PULSE 74; TEMP 98.9
[2023-01-13] MEDS ORDERED: CEFUROXIME AXETIL 500 MG TABLET GT SCH (10:00)
== END 2023-01-12 20:04 | DRG 248 ==
LOC: JER 12:21 → JERBED 17:17 → J8W 20:34
PROVIDERS: ADMIT Internal Medicine; ATTEND Nurse Practitioner Family
PROC: 0DBL8ZX Excision of Transverse Colon, Via Natural or Artificial Opening Endoscopic, Diagnostic (ICD-10-PCS; principal; 2023-01-06 11:00)
DX: A04.72 Enterocolitis due to Clostridium difficile, not specified as recurrent (principal); J96.21 Acute and chronic respiratory failure with hypoxia; J18.9 Pneumonia, unspecified organism; L89.152 Pressure ulcer of sacral region, stage 2; J90 Pleural effusion, not elsewhere classified; Z93.0 Tracheostomy status; I12.0 Hypertensive chronic kidney disease with stage 5 chronic kidney disease or end stage renal disease; E11.22 Type 2 diabetes mellitus with diabetic chronic kidney disease; N18.6 End stage renal disease; K63.3 Ulcer of intestine; Z93.1 Gastrostomy status; K80.20 Calculus of gallbladder without cholecystitis without obstruction; E78.5 Hyperlipidemia, unspecified; J98.11 Atelectasis; D63.1 Anemia in chronic kidney disease; R11.2 Nausea with vomiting, unspecified; K64.8 Other hemorrhoids; K59.00 Constipation, unspecified; K36 Other appendicitis; Z99.2 Dependence on renal dialysis; Z89.421 Acquired absence of other right toe(s); Z86.73 Personal history of transient ischemic attack (TIA), and cerebral infarction without residual deficits; Z74.01 Bed confinement status
CPT/HCPCS: 0241U-QW; 36415; 36600; 71045-TC-FY; 74176-TC; 74177-TC; 80053; 81003; 82803; 82962; 83605; 83690; 83735; 83880; 84100; 84484; 84703; 85025; 85027; 85610; 85730; 86140; 86803; 86850; 86900; 86901; 87045; 87046; 87086; 87186; 87205; 87324; 87340; 87449; 88305-TC; 93005; 93010; 94640; 99285-25; C9803-CS; J0885; J1644; Q5106; U0003; U0005

== ENCOUNTER 2023-02-17 03:29 | Inpatient (IN) | payer OTHER ==
[2023-02-17] MEDS ORDERED: ONDANSETRON 4 MG/2 ML VIAL IVPUSH ONE (03:51)
[2023-02-17] MEDS ORDERED: ONDANSETRON 4 MG/2 ML VIAL ONE (04:06)
[2023-02-17 04:20] LABS: HEMATOCRIT 14.3 % (32.4-45.2); MCH 32.7 pg (25.7-33.7); MCHC 34.3 g/dl (32.0-36.0); MEAN CELL VOLUME 95.3 fl (80-96); MEAN PLT VOLUME 7.2 fl (7.5-11.1); PLATELET COUNT 244 10^3/uL (134-434); RDW 20.6 % (11.6-15.6); RETICULOCYTES 6.82 % (0.5-1.5); WHITE BLOOD COUNT 8.6 K/mm3 (4.0-10.0)
[2023-02-17 04:21] LABS: HEMOGLOBIN 4.9 GM/dL (10.7-15.3)
[2023-02-17] MEDS ORDERED: FUROSEMIDE 40 MG/4 ML INJECTABLE VIAL IVPUSH ONE (04:22)
[2023-02-17 04:33] LABS: INR 1.06 (0.83-1.09); PROTHROMBIN TIME (PATIENT) 12.3 SEC (9.7-13.0)
[2023-02-17 04:40] LABS: CALCIUM 8.4 mg/dL (8.5-10.1)
[2023-02-17 04:41] LABS: ALBUMIN 2.4 g/dl (3.4-5.0); BLOOD UREA NITROGEN 46.5 mg/dL (7-18); MAGNESIUM 2.1 mg/dL (1.8-2.4)
[2023-02-17 04:43] LABS: PHOSPHOROUS 3.6 mg/dL (2.5-4.9)
[2023-02-17 04:44] LABS: CREATININE 2.8 mg/dL (0.55-1.3)
[2023-02-17] MEDS: ALBUTEROL SO4 2.5/IPRATROPIUM 0.5 INH SOL 3 ML VIAL.NEB. NEB SCH ×2 (04:47→05:01)
[2023-02-17] MEDS ORDERED: FUROSEMIDE 40 MG/4 ML INJECTABLE VIAL ONE (04:50)
[2023-02-17 04:51] LABS: BILIRUBIN,TOTAL 0.3 mg/dL (0.2-1)
[2023-02-17 05:35] LABS: N-TERMINAL BNP 58345.7 pg/ml (5-125)
[2023-02-17] MEDS ORDERED: PANTOPRAZOLE SODIUM 40 MG VIAL IVPUSH SCH ×2 (07:32→10:00)
[2023-02-17 08:34] LABS: ANISOCYTOSIS 1+; MACROCYTOSIS 1+
[2023-02-17] MEDS ORDERED: PANTOPRAZOLE SODIUM 160 MG in SODIUM CHLORIDE 290 ML IVPB SCH (09:45)
[2023-02-17] MEDS ORDERED: methylPREDNISolone NA SUCC 40 MG/1 ML VIAL IVPUSH ONE (10:20)
[2023-02-17] MEDS ORDERED: ALBUTEROL SO4 2.5/IPRATROPIUM 0.5 INH SOL 3 ML VIAL.NEB. NEB PRN (10:21)
[2023-02-17] MEDS ORDERED: ALBUTEROL SO4 2.5/IPRATROPIUM 0.5 INH SOL 3 ML VIAL.NEB. NEB ONE (10:23)
[2023-02-17] MEDS ORDERED: PANTOPRAZOLE SODIUM 40 MG VIAL ONE ×2 (10:23→22:31)
[2023-02-17] MEDS ORDERED: methylPREDNISolone NA SUCC 125 MG/2 ML VIAL ONE (10:23)
[2023-02-17] MEDS: PANTOPRAZOLE SODIUM 40 MG VIAL IVPUSH SCH ×2 (10:34→22:53)
[2023-02-17] MEDS ORDERED: morphine SULFATE 4 MG/ML VIAL IVPUSH ONE (12:11)
[2023-02-17] MEDS ORDERED: SODIUM CHLORIDE 250 ML IV PRN (19:03)
[2023-02-18 07:02] LABS: INR 1.06 (0.83-1.09); PROTHROMBIN TIME (PATIENT) 12.3 SEC (9.7-13.0)
[2023-02-18 07:18] LABS: CALCIUM 8.9 mg/dL (8.5-10.1)
[2023-02-18 07:19] LABS: ALBUMIN 2.9 g/dl (3.4-5.0); MAGNESIUM 2.2 mg/dL (1.8-2.4)
[2023-02-18 07:22] LABS: CREATININE 3.5 mg/dL (0.55-1.3); PHOSPHOROUS 5.9 mg/dL (2.5-4.9)
[2023-02-18 07:23] LABS: TOT PROT 6.8 g/dl (6.4-8.2)
[2023-02-18 07:24] LABS: BILIRUBIN,TOTAL 0.6 mg/dL (0.2-1)
[2023-02-18 07:30] LABS: BLOOD UREA NITROGEN 66.7 mg/dL (7-18)
[2023-02-18 07:50] LABS: BASO % 0.4 % (0-2.0); HEMATOCRIT 26.3 % (32.4-45.2); HEMOGLOBIN 9.2 GM/dL (10.7-15.3); LYMPH % 3.8 % (8-40); MCH 32.5 pg (25.7-33.7); MEAN CELL VOLUME 92.9 fl (80-96); MEAN PLT VOLUME 7.8 fl (7.5-11.1); MONO % 5.8 % (3.8-10.2); PLATELET COUNT 241 10^3/uL (134-434); RBC 2.83 M/mm3 (3.60-5.2); RDW 18.1 % (11.6-15.6); WHITE BLOOD COUNT 8.4 K/mm3 (4.0-10.0)
[2023-02-18] MEDS ORDERED: LABETALOL HCL 5 MG/1 ML (100MG/20 ML VIAL) IVPUSH SCH (09:00)
[2023-02-18] MEDS ORDERED: LABETALOL HCL 20 MG/4 ML VIAL ONE (09:09)
[2023-02-18] MEDS ORDERED: PANTOPRAZOLE SODIUM 40 MG VIAL ONE (09:09)
[2023-02-18] MEDS: PANTOPRAZOLE SODIUM 40 MG VIAL IVPUSH SCH ×2 (09:10→21:31)
[2023-02-18] MEDS ORDERED: cloNIDine-TTS 0.3 MG /24 HRS PATCH.TDWK TD SCH (10:00)
[2023-02-18] MEDS ORDERED: ONDANSETRON 4 MG/2 ML VIAL IVPUSH PRN (13:05)
[2023-02-18] MEDS ORDERED: ONDANSETRON 4 MG/2 ML VIAL IVPUSH ONE ×2 (13:06→14:42)
[2023-02-18] MEDS ORDERED: EPOETIN ALFA-EPBX 10,000 UNIT/ML VIAL IVPUSH ONE (13:45)
[2023-02-18] MEDS ORDERED: PATIENT'S OWN MEDICATION (NON-FORMULARY) (Menthol/Zinc Oxide [Calmoseptine Ointment] 71 GM TD SCH (14:00)
[2023-02-18] MEDS ORDERED: ONDANSETRON 4 MG/2 ML VIAL ONE (14:40)
[2023-02-18] MEDS ORDERED: ALBUTEROL SO4 2.5/IPRATROPIUM 0.5 INH SOL 3 ML VIAL.NEB. NEB PRN (15:23)
[2023-02-18] MEDS: ATORVASTATIN CA 80 MG TABLET (FP) PEG SCH (21:31)
[2023-02-18] MEDS: LABETALOL HCL 200 MG TABLET (FP) PEG SCH (21:32)
[2023-02-18] MEDS: hydrALAZINE HCL 50 MG TABLET (FP) PEG SCH (21:32)
[2023-02-18] MEDS: POLYETHYLENE GLYCOL (HEALTHYLAX) 3350 17 GM PACKET PO SCH (21:33)
[2023-02-18] MEDS: BUDESONIDE/FORMETEROL FUMARATE 160/4.5 mcg INHALER IH SCH (23:42)
[2023-02-18] MEDS: NYSTATIN 100,000 UNIT/GM TOPICAL CREAM 15 GM TUBE TP SCH (23:43)
[2023-02-18] MEDS: LACOSAMIDE 50 MG TABLET PO SCH (23:44)
[2023-02-19] MEDS ORDERED: ONDANSETRON 4 MG/2 ML VIAL IVPUSH ONE (01:24)
[2023-02-19] MEDS: LABETALOL HCL 200 MG TABLET (FP) PEG SCH ×3 (05:59→21:08)
[2023-02-19] MEDS: hydrALAZINE HCL 50 MG TABLET (FP) PEG SCH ×3 (06:00→21:08)
[2023-02-19 07:05] LABS: CREATININE 2.3 mg/dL (0.55-1.3)
[2023-02-19 07:14] LABS: BASO % 0.3 % (0-2.0); HEMATOCRIT 24.7 % (32.4-45.2); HEMOGLOBIN 8.6 GM/dL (10.7-15.3); LYMPH % 4.7 % (8-40); MCH 32.7 pg (25.7-33.7); MCHC 34.9 g/dl (32.0-36.0); MEAN CELL VOLUME 93.4 fl (80-96); MEAN PLT VOLUME 7.8 fl (7.5-11.1); MONO % 7.7 % (3.8-10.2); NEUT % 87.3 % (42.8-82.8); PLATELET COUNT 231 10^3/uL (134-434); RBC 2.65 M/mm3 (3.60-5.2); RDW 17.5 % (11.6-15.6); WHITE BLOOD COUNT 7.3 K/mm3 (4.0-10.0)
[2023-02-19] MEDS: PANTOPRAZOLE SODIUM 40 MG VIAL IVPUSH SCH ×2 (09:52→21:08)
[2023-02-19] MEDS: LISINOPRIL 20 MG TABLET PEG SCH (09:52)
[2023-02-19] MEDS: amLODIPine BESYLATE 10 MG TABLET (FP) PEG SCH (09:52)
[2023-02-19] MEDS: POLYETHYLENE GLYCOL (HEALTHYLAX) 3350 17 GM PACKET PO SCH ×2 (09:53→21:07)
[2023-02-19] MEDS: LACOSAMIDE 50 MG TABLET PO SCH ×2 (09:53→21:07)
[2023-02-19] MEDS ORDERED: SODIUM CHLORIDE 250 ML IV PRN (10:28)
[2023-02-19] MEDS: BUDESONIDE/FORMETEROL FUMARATE 160/4.5 mcg INHALER IH SCH ×2 (10:30→21:07)
[2023-02-19] MEDS: ONDANSETRON 4 MG/2 ML VIAL IVPUSH ONE ×2 (10:30→16:36)
[2023-02-19] MEDS: NYSTATIN 100,000 UNIT/GM TOPICAL CREAM 15 GM TUBE TP SCH ×2 (11:24→21:08)
[2023-02-19] MEDS ORDERED: ONDANSETRON 4 MG/2 ML VIAL ONE (16:35)
[2023-02-19] MEDS: ALPRAZolam 0.25 MG TABLET GT PRN (16:47)
[2023-02-19] MEDS: ATORVASTATIN CA 80 MG TABLET (FP) PEG SCH (21:08)
[2023-02-20] MEDS: hydrALAZINE HCL 50 MG TABLET (FP) PEG SCH ×3 (06:34→21:35)
[2023-02-20] MEDS: LABETALOL HCL 200 MG TABLET (FP) PEG SCH ×3 (06:34→21:35)
[2023-02-20] MEDS ORDERED: SODIUM CHLORIDE 250 ML IV PRN (07:48)
[2023-02-20 08:01] LABS: HEMATOCRIT 23.6 % (32.4-45.2); HEMOGLOBIN 8.1 GM/dL (10.7-15.3); MCH 32.4 pg (25.7-33.7); MCHC 34.6 g/dl (32.0-36.0); MEAN CELL VOLUME 93.6 fl (80-96); MEAN PLT VOLUME 7.5 fl (7.5-11.1); PLATELET COUNT 218 10^3/uL (134-434); RBC 2.52 M/mm3 (3.60-5.2); RDW 17.3 % (11.6-15.6); WHITE BLOOD COUNT 5.1 K/mm3 (4.0-10.0)
[2023-02-20 08:01] LABS: CALCIUM 8.2 mg/dL (8.5-10.1); MAGNESIUM 1.9 mg/dL (1.8-2.4)
[2023-02-20 08:02] LABS: BLOOD UREA NITROGEN 37.8 mg/dL (7-18)
[2023-02-20 08:04] LABS: CREATININE 3.1 mg/dL (0.55-1.3); PHOSPHOROUS 3.7 mg/dL (2.5-4.9)
[2023-02-20 08:06] LABS: TOT PROT 5.1 g/dl (6.4-8.2)
[2023-02-20 08:09] LABS: BILIRUBIN,TOTAL 0.5 mg/dL (0.2-1)
[2023-02-20 08:19] LABS: ALBUMIN 2.2 g/dl (3.4-5.0)
[2023-02-20] MEDS ORDERED: EPOETIN ALFA-EPBX 10,000 UNIT/ML VIAL SQ ONE (08:30)
[2023-02-20] MEDS: POLYETHYLENE GLYCOL (HEALTHYLAX) 3350 17 GM PACKET PO SCH ×2 (09:48→13:04)
[2023-02-20] MEDS: LACOSAMIDE 50 MG TABLET PO SCH (09:48)
[2023-02-20] MEDS: PANTOPRAZOLE SODIUM 40 MG VIAL IVPUSH SCH ×2 (09:48→21:33)
[2023-02-20] MEDS: NYSTATIN 100,000 UNIT/GM TOPICAL CREAM 15 GM TUBE TP SCH ×2 (09:48→21:35)
[2023-02-20] MEDS: LISINOPRIL 20 MG TABLET PEG SCH (12:39)
[2023-02-20] MEDS: BUDESONIDE/FORMETEROL FUMARATE 160/4.5 mcg INHALER IH SCH ×2 (12:40→21:35)
[2023-02-20] MEDS: amLODIPine BESYLATE 10 MG TABLET (FP) PEG SCH (12:40)
[2023-02-20] MEDS: ALPRAZolam 0.25 MG TABLET GT PRN ×2 (12:41→21:35)
[2023-02-20] MEDS ORDERED: ZINC OXIDE 20% TOPICAL OINTMENT 30 GM TUBE TP SCH (13:45)
[2023-02-20] MEDS ORDERED: ALBUTEROL SO4 2.5/IPRATROPIUM 0.5 INH SOL 3 ML VIAL.NEB. NEB PRN (17:01)
[2023-02-20] MEDS: POLYETHYLENE GLYCOL (HEALTHYLAX) 3350 17 GM PACKET PEG SCH (21:34)
[2023-02-20] MEDS: Lacosamide 50 MG/5 ML ORAL SOLUTION UNIT CUPS PEG SCH (21:34)
[2023-02-20] MEDS: ATORVASTATIN CA 80 MG TABLET (FP) PEG SCH (21:34)
[2023-02-20] MEDS: ZINC OXIDE 20% TOPICAL OINTMENT 30 GM TUBE TP SCH (21:35)
[2023-02-21] MEDS: hydrALAZINE HCL 50 MG TABLET (FP) PEG SCH ×3 (06:13→21:46)
[2023-02-21] MEDS: LABETALOL HCL 200 MG TABLET (FP) PEG SCH ×3 (06:13→21:46)
[2023-02-21] MEDS: NYSTATIN 100,000 UNIT/GM TOPICAL CREAM 15 GM TUBE TP SCH ×2 (09:55→21:47)
[2023-02-21] MEDS: amLODIPine BESYLATE 10 MG TABLET (FP) PEG SCH (09:55)
[2023-02-21] MEDS: POLYETHYLENE GLYCOL (HEALTHYLAX) 3350 17 GM PACKET PEG SCH ×2 (09:55→21:45)
[2023-02-21] MEDS: LISINOPRIL 20 MG TABLET PEG SCH (09:55)
[2023-02-21] MEDS: PANTOPRAZOLE SODIUM 40 MG VIAL IVPUSH SCH ×2 (09:55→21:46)
[2023-02-21] MEDS: ALPRAZolam 0.25 MG TABLET GT PRN ×2 (09:56→21:47)
[2023-02-21] MEDS: Lacosamide 50 MG/5 ML ORAL SOLUTION UNIT CUPS PEG SCH ×2 (09:56→21:46)
[2023-02-21] MEDS: BUDESONIDE/FORMETEROL FUMARATE 160/4.5 mcg INHALER IH SCH ×2 (09:56→21:46)
[2023-02-21] MEDS: ZINC OXIDE 20% TOPICAL OINTMENT 30 GM TUBE TP SCH ×2 (09:56→21:46)
[2023-02-21 10:09] LABS: BASO % 0.4 % (0-2.0); EOS % 1.3 % (0-4.5); HEMATOCRIT 27.5 % (32.4-45.2); HEMOGLOBIN 9.4 GM/dL (10.7-15.3); LYMPH % 8.7 % (8-40); MCH 32.2 pg (25.7-33.7); MCHC 34.2 g/dl (32.0-36.0); MEAN CELL VOLUME 94.2 fl (80-96); MEAN PLT VOLUME 7.7 fl (7.5-11.1); NEUT % 81.6 % (42.8-82.8); PLATELET COUNT 220 10^3/uL (134-434); RBC 2.92 M/mm3 (3.60-5.2); RDW 17.2 % (11.6-15.6); WHITE BLOOD COUNT 5.8 K/mm3 (4.0-10.0)
[2023-02-21] MEDS: ATORVASTATIN CA 80 MG TABLET (FP) PEG SCH (21:46)
[2023-02-22] MEDS: LABETALOL HCL 200 MG TABLET (FP) PEG SCH ×3 (05:28→22:29)
[2023-02-22] MEDS: hydrALAZINE HCL 50 MG TABLET (FP) PEG SCH ×3 (05:28→22:28)
[2023-02-22] MEDS: Lacosamide 50 MG/5 ML ORAL SOLUTION UNIT CUPS PEG SCH ×2 (11:13→22:28)
[2023-02-22] MEDS: amLODIPine BESYLATE 10 MG TABLET (FP) PEG SCH (11:13)
[2023-02-22] MEDS: LISINOPRIL 20 MG TABLET PEG SCH (11:13)
[2023-02-22] MEDS: PANTOPRAZOLE SODIUM 40 MG VIAL IVPUSH SCH (11:14)
[2023-02-22] MEDS: BUDESONIDE/FORMETEROL FUMARATE 160/4.5 mcg INHALER IH SCH ×3 (11:15→22:30)
[2023-02-22] MEDS: NYSTATIN 100,000 UNIT/GM TOPICAL CREAM 15 GM TUBE TP SCH ×2 (11:16→22:29)
[2023-02-22] MEDS: POLYETHYLENE GLYCOL (HEALTHYLAX) 3350 17 GM PACKET PEG SCH ×2 (11:16→22:29)
[2023-02-22] MEDS: ZINC OXIDE 20% TOPICAL OINTMENT 30 GM TUBE TP SCH ×2 (11:16→22:30)
[2023-02-22] MEDS: ALPRAZolam 0.25 MG TABLET GT PRN ×2 (11:22→20:40)
[2023-02-22] MEDS ORDERED: ASPIRIN 81 MG CHEWABLE TABLETS PO SCH (12:30)
[2023-02-22] MEDS: ALBUTEROL SO4 2.5/IPRATROPIUM 0.5 INH SOL 3 ML VIAL.NEB. NEB PRN ×2 (15:14→20:51)
[2023-02-22 16:09] VITALS: BMI 24.4
[2023-02-22] MEDS: AMINO ACIDS/PROTEIN HYDROLYS 30 ML LIQUID.PKT PO SCH ×2 (16:22→16:56)
[2023-02-22] MEDS ORDERED: PANTOPRAZOLE SOD 40 MG SUSPENSION PACKET PO SCH (22:00)
[2023-02-22] MEDS: ATORVASTATIN CA 80 MG TABLET (FP) PEG SCH (22:28)
[2023-02-22] MEDS: FAMOTIDINE 40 MG/5 ML ORAL SUSPENSION PEG SCH (22:42)
[2023-02-23] MEDS: ALPRAZolam 0.25 MG TABLET GT PRN ×2 (05:27→21:12)
[2023-02-23] MEDS: ALBUTEROL SO4 2.5/IPRATROPIUM 0.5 INH SOL 3 ML VIAL.NEB. NEB PRN ×2 (05:50→15:30)
[2023-02-23] MEDS: LABETALOL HCL 200 MG TABLET (FP) PEG SCH ×3 (06:39→21:11)
[2023-02-23] MEDS: hydrALAZINE HCL 50 MG TABLET (FP) PEG SCH ×3 (06:39→21:11)
[2023-02-23] MEDS ORDERED: EPOETIN ALFA 10,000 UNIT/1 ML VIAL IVPUSH ONE (09:00)
[2023-02-23] MEDS ORDERED: EPOETIN ALFA-EPBX 4,000 UNIT/ML VIAL IVPUSH ONE (10:38)
[2023-02-23] MEDS ORDERED: SODIUM CHLORIDE 250 ML IV PRN (10:38)
[2023-02-23] MEDS: ASPIRIN 81 MG CHEWABLE TABLETS PEG SCH (10:53)
[2023-02-23] MEDS: NYSTATIN 100,000 UNIT/GM TOPICAL CREAM 15 GM TUBE TP SCH ×2 (10:53→21:11)
[2023-02-23] MEDS: AMINO ACIDS/PROTEIN HYDROLYS 30 ML LIQUID.PKT PO SCH ×2 (10:53→18:02)
[2023-02-23] MEDS: POLYETHYLENE GLYCOL (HEALTHYLAX) 3350 17 GM PACKET PEG SCH ×2 (10:53→21:11)
[2023-02-23] MEDS: Lacosamide 50 MG/5 ML ORAL SOLUTION UNIT CUPS PEG SCH ×2 (10:53→21:12)
[2023-02-23] MEDS: FAMOTIDINE 40 MG/5 ML ORAL SUSPENSION PEG SCH ×2 (10:53→21:11)
[2023-02-23] MEDS: amLODIPine BESYLATE 10 MG TABLET (FP) PEG SCH (10:54)
[2023-02-23] MEDS: ZINC OXIDE 20% TOPICAL OINTMENT 30 GM TUBE TP SCH ×2 (10:54→23:29)
[2023-02-23] MEDS: BUDESONIDE/FORMETEROL FUMARATE 160/4.5 mcg INHALER IH SCH ×2 (10:54→21:12)
[2023-02-23] MEDS: LISINOPRIL 20 MG TABLET PEG SCH (10:54)
[2023-02-23 14:37] LABS: HEMATOCRIT 24.7 % (32.4-45.2); HEMOGLOBIN 8.2 GM/dL (10.7-15.3); MCH 31.8 pg (25.7-33.7); MCHC 33.4 g/dl (32.0-36.0); MEAN PLT VOLUME 7.6 fl (7.5-11.1); PLATELET COUNT 235 10^3/uL (134-434); RBC 2.59 M/mm3 (3.60-5.2); RDW 17.1 % (11.6-15.6); WHITE BLOOD COUNT 7.9 K/mm3 (4.0-10.0)
[2023-02-23] MEDS: ATORVASTATIN CA 80 MG TABLET (FP) PEG SCH (21:11)
[2023-02-24] MEDS: LABETALOL HCL 200 MG TABLET (FP) PEG SCH ×2 (06:19→13:46)
[2023-02-24] MEDS: hydrALAZINE HCL 50 MG TABLET (FP) PEG SCH ×2 (06:19→13:47)
[2023-02-24] MEDS: AMINO ACIDS/PROTEIN HYDROLYS 30 ML LIQUID.PKT PO SCH (08:33)
[2023-02-24 09:38] LABS: HEMATOCRIT 26.3 % (32.4-45.2); MCH 32.1 pg (25.7-33.7); MCHC 34.3 g/dl (32.0-36.0); MEAN CELL VOLUME 93.5 fl (80-96); MEAN PLT VOLUME 7.4 fl (7.5-11.1); PLATELET COUNT 207 10^3/uL (134-434); RBC 2.81 M/mm3 (3.60-5.2); RDW 16.2 % (11.6-15.6); WHITE BLOOD COUNT 5.7 K/mm3 (4.0-10.0)
[2023-02-24] MEDS: POLYETHYLENE GLYCOL (HEALTHYLAX) 3350 17 GM PACKET PEG SCH (10:13)
[2023-02-24] MEDS: amLODIPine BESYLATE 10 MG TABLET (FP) PEG SCH (10:13)
[2023-02-24] MEDS: LISINOPRIL 20 MG TABLET PEG SCH (10:13)
[2023-02-24] MEDS: ASPIRIN 81 MG CHEWABLE TABLETS PEG SCH (10:13)
[2023-02-24] MEDS: Lacosamide 50 MG/5 ML ORAL SOLUTION UNIT CUPS PEG SCH (10:13)
[2023-02-24] MEDS: FAMOTIDINE 40 MG/5 ML ORAL SUSPENSION PEG SCH (10:14)
[2023-02-24] MEDS: ZINC OXIDE 20% TOPICAL OINTMENT 30 GM TUBE TP SCH (10:14)
[2023-02-24] MEDS: BUDESONIDE/FORMETEROL FUMARATE 160/4.5 mcg INHALER IH SCH (10:15)
[2023-02-24] MEDS: NYSTATIN 100,000 UNIT/GM TOPICAL CREAM 15 GM TUBE TP SCH (10:41)
[2023-02-24 13:57] VITALS: BP 147/79; PULSE 79; RESP 17; TEMP 98.1
[2023-02-25] MEDS ORDERED: cloNIDine-TTS 0.3 MG /24 HRS PATCH.TDWK TD SCH (10:00)
== END 2023-02-24 14:44 | DRG 377 ==
LOC: JER 03:29 → JERBED 04:23 → J2W 02-18 16:22 → J5S 02-20 17:03
PROVIDERS: ADMIT Internal Medicine; ATTEND Internal Medicine
PROC: 5A1955Z Respiratory Ventilation, Greater than 96 Consecutive Hours (ICD-10-PCS; principal; 2023-02-17)
PROC: 30233N1 Transfusion of Nonautologous Red Blood Cells into Peripheral Vein, Percutaneous Approach (ICD-10-PCS; 2023-02-17)
PROC: 5A1D70Z Performance of Urinary Filtration, Intermittent, Less than 6 Hours Per Day (ICD-10-PCS; 2023-02-18)
PROC: 0DB98ZX Excision of Duodenum, Via Natural or Artificial Opening Endoscopic, Diagnostic (ICD-10-PCS; 2023-02-18)
PROC: 0DB78ZX Excision of Stomach, Pylorus, Via Natural or Artificial Opening Endoscopic, Diagnostic (ICD-10-PCS; 2023-02-18)
PROC: 5A1D70Z Performance of Urinary Filtration, Intermittent, Less than 6 Hours Per Day (ICD-10-PCS; 2023-02-19)
PROC: 5A1D70Z Performance of Urinary Filtration, Intermittent, Less than 6 Hours Per Day (ICD-10-PCS; 2023-02-23)
DX: K26.4 Chronic or unspecified duodenal ulcer with hemorrhage (principal); I50.33 Acute on chronic diastolic (congestive) heart failure; J96.21 Acute and chronic respiratory failure with hypoxia; N18.6 End stage renal disease; J90 Pleural effusion, not elsewhere classified; I13.2 Hypertensive heart and chronic kidney disease with heart failure and with stage 5 chronic kidney disease, or end stage renal disease; D62 Acute posthemorrhagic anemia; E11.22 Type 2 diabetes mellitus with diabetic chronic kidney disease; K29.71 Gastritis, unspecified, with bleeding; E87.70 Fluid overload, unspecified; R10.84 Generalized abdominal pain; D64.9 Anemia, unspecified; E78.5 Hyperlipidemia, unspecified; J44.9 Chronic obstructive pulmonary disease, unspecified; Z99.81 Dependence on supplemental oxygen; Z93.0 Tracheostomy status; Z93.1 Gastrostomy status; Z99.2 Dependence on renal dialysis; Z86.73 Personal history of transient ischemic attack (TIA), and cerebral infarction without residual deficits
CPT/HCPCS: 0241U-QW; 36415; 36430; 71045-TC-FY; 80048; 80053; 82272; 82728; 82962; 83540; 83550; 83605; 83690; 83735; 83880; 84100; 84484; 84702; 84703; 85025; 85027; 85045; 85610; 85730; 86803; 86850; 86900; 86901; 86922; 87340; 88305-TC; 93005; 93010; 94002; 94640; 94760; 99285-25; C9803-CS; J0885; P9058; Q5106; U0003; U0005